=== PATIENT | male | born 1980 | race Caucasian/White ===

== ENCOUNTER → 2024-10-10 | Outpatient (CLI) | payer BC ==
--- NOTE | 2024-10-13 22:21 | PE ---
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 Images are reviewed on the computer in the coronal, axial, a nd sagittal planes. Reconstructed rotating images are created on independent workstation and reviewe d on the computer. A localization and attenuation correction CT is performed in conjunction with e PET scan. DLP: 5243.65 mGycm SCAN: Initial Blood glucose: 77 mg/dL Average Mediastinum SUV: 1.95 Average Liver SUV: 2.97 FINDINGS: NECK: There is marked abnormality through the right swelling of the neck with marked increased uptak e at 45.18 SUV. There are couple of additional smaller lymph nodes with elevated uptake in the right neck including the right jugulodigastric region with an SUV of 55 and a posterior triangle lymph node with SUV of 30.56, image 44. Couple of tiny areas of uptake are within the right tonsillar region, i mage 38, SUV 5.93 and in the parapharyngeal space, image 42, SUV 9.73. A peripheral density is just b elow the subcutaneous tissue image 40, SUV 4.49. Inferiorly a right supraclavicular lymph node may be present, image 69, SUV 61 more medial supraclavicular lymph node may be present image 74, SUV 34.46. THORAX: No abnormal uptake ABDOMEN: There is uptake in the region of the left adrenal gland with an SUV of 56.75. PELVIS: No abnormal uptake OSSEOUS STRUCTURES: No abnormal uptake LOCALIZATION CT: Soft tissue thickening is within the right neck on the localization CT COMPARISON: None IMPRESSION: 1. Marked uptake within the right neck with multiple punctate nearby focal areas of abnormal uptake. Findings could be compatible with patient's reported lymphoma. 2. Additional uptake noted in the left adrenal gland likely a metastatic lesion. [facility], , 10/13/2024 10:19 PM
== END | disposition home or self-care (01) ==
LOC: RADPETMAIN 06:32
PROVIDERS: ATTEND Internal Medicine Hematology & Oncology
DX: C85.11 Unspecified B-cell lymphoma, lymph nodes of head, face, and neck (principal); R93.7 Abnormal findings on diagnostic imaging of other parts of musculoskeletal system
CPT/HCPCS: 78815; A9552

== ENCOUNTER 2024-10-28 07:23 | Day surgery (SDC) | payer BC ==
[2024-10-24 09:32] VITALS: BMI 50.8
[~2024-10-28 07:23] MED LIST: Pre Op ABX Message 1 EACH MISC MISCELLANE ONE
[2024-10-28] MEDS ORDERED: MIDAZOLAM 2 MG/2 ML VIAL IV PRN (07:40)
[2024-10-28] MEDS ORDERED: LIDOCAINE 1% (10MG/ML) FOR IV START INTRADERMA PRN (07:40)
[2024-10-28] MEDS ORDERED: HYDROmorphone 0.5 MG/0.5 ML SYRINGE IVP PRN (07:40)
[2024-10-28] MEDS ORDERED: fentaNYL (PF) 50 MCG/ML 2 ML AMP IVP PRN (07:40)
[2024-10-28] MEDS: LACTATED RINGERS 1,000 ML IV SCH (08:10)
[2024-10-28] MEDS: IV FLUID CONTINUATION 1,000 ML IV ONE (08:10)
[2024-10-28] MEDS: DEXAMETHASONE SOD PHOSPHATE 4 MG/ML 1 ML VIAL IV ONE (08:25)
[2024-10-28] MEDS: ONDANSETRON 4 MG/2 ML VIAL IVP ONE (08:25)
[2024-10-28] MEDS: HEPARIN SODIUM,PORCINE 5,000 UNIT/ML 1 ML VIAL SQ PRN (08:25)
[2024-10-28] MEDS: ACETAMINOPHEN TAB 500 MG TAB PO PRN (08:25)
[2024-10-28 08:32] LABS: Glucose,Whole Blood 116 mg/dL (70-110)
--- NOTE | 2024-10-28 08:42 | P.GSHP ---
History of Present Illness H&P Date: 10/28/24 Chief Complaint: Lymphoma This a 44-year-old male recently diagnosed lymphoma. Patient is today for Port-A-Cath placement. Past Medical History Past Medical History: Pneumonia Additional Past Medical History / Comment(s): swelling and lump above rt collar bone-dx lymphoma-finishing tx 10-25-24 w/ dexamethasone-bx rt neck mass-needle bx, left kidney "lit up in pet scan",-following w/ Dr Bernal, hx bronchitis,pneumonia back in high school,kidney stones-passed on own 2023 History of Any Multi-Drug Resistant Organisms: None Reported Past Surgical History: No Surgical Hx Reported Past Anesthesia/Blood Transfusion Reactions: No Reported Reaction Additional Past Anesthesia/Blood Transfusion Reaction / Comment(s): no surgical hx Smoking Status: Former smoker - Past Family History Mother Family Medical History: Cancer Additional Family Medical History / Comment(s): lung CA. maternal uncle lung CA. maternal aunt breast CA. maternal grandfather leukemia Father Additional Family Medical History / Comment(s): paternal uncle pancreatic CA Medications and Allergies Home Medications Medication Instructions Recorded Confirmed Type Naproxen Sodium [Aleve] 220 - 440 mg PO BID PRN 10/24/24 10/24/24 History Allergies Allergy/AdvReac Type Severity Reaction Status Date / Time No Known Allergies Allergy Verified 10/28/24 07:50 Surgical - Exam Vital Signs Temp Pulse Resp BP Pulse Ox 97.8 F 73 16 158/67 96 10/28/24 08:10 10/28/24 08:10 10/28/24 08:10 10/28/24 08:10 10/28/24 08:10 - General well developed, well nourished, no distress - Eyes PERRL - ENT normal pinna - Neck Right cervical lymphadenopathy no masses - Respiratory normal expansion - Cardiovascular Rhythm: regular - Abdomen Abdomen: soft, non tender Results - Labs Abnormal Lab Results - Last 24 Hours (Table) 10/28/24 Range/Units 08:17 POC Glucose (mg/dL) 116 H (70-110) mg/dL Assessment and Plan Plan: Lymphoma. Will perform Port-A-Cath placement
[2024-10-28] MEDS ORDERED: MIDAZOLAM 2 MG/2 ML VIAL ONE (08:55)
[2024-10-28] MEDS ORDERED: fentaNYL (PF) 50 MCG/ML 2 ML AMP ONE (08:55)
[2024-10-28] MEDS ORDERED: LIDOCAINE 1% INJ 10MG/ML (20 ML MDV) ONE (08:55)
[2024-10-28] MEDS ORDERED: SUCCINYLCHOLINE CHLORIDE 200 MG/10 ML VIAL IV ONE (08:55)
[2024-10-28] MEDS ORDERED: PROPOFOL 10 MG/ML 20 ML VIAL IV ONE (08:55)
[2024-10-28] MEDS ORDERED: ceFAZolin 3 GM in SODIUM CHLORIDE 0.9% 100 ML IVPB ONE (09:00)
[2024-10-28] MEDS: LIDOCAINE 1%-EPI 1:100,000 20 ML VIAL SQ ONE (09:00)
[2024-10-28] MEDS: CEFAZOLIN IV ONE (09:00)
[2024-10-28] MEDS: HEPARIN SODIUM,PORCINE 100 UNIT/ML 5 ML VIAL IV ONE (09:00)
[2024-10-28] MEDS: SODIUM CHLORIDE 0.9% IV ONE (09:00)
[2024-10-28] MEDS: IOPAMIDOL-370 100ML BTL MISCELLANE ONE (09:40)
[2024-10-28 10:08] VITALS: TEMP 97
--- NOTE | 2024-10-28 10:17 | P.OP ---
Date of Procedure: 10/28/24 Preoperative Diagnosis: lymphoma Postoperative Diagnosis: Lymphoma Procedure(s) Performed: Insertion of right subclavian Port-A-Cath Anesthesia: CHARLY Surgeon: Ned Brantley Estimated Blood Loss (ml): 5 Pathology: none sent Condition: stable Disposition: PACU Description of Procedure: The patient was placed on the operating table in the supine position. The patient received IV sedation. The patient's chest was prepped and draped in the usual sterile fashion. A roll had been placed between the shoulder blades in a longitudinal fashion. After prepping and draping the skin was anesthetized 1% local Xylocaine. And then using the Seldinger technique the subclavian vein was cannulated. A wire was placed into the vein and fluoroscopy position the wire at the atrial caval junction. Next the dilator sheath was placed over top the wire and the wire was withdrawn. The catheter was positioned at the atriocaval position. The catheter was placed through the sheath after the dilator was withdrawn. The sheath was then withdrawn. Position of the catheter was confirmed with fluoroscopy. The Port-A-Cath was connected to the catheter. The Port-A-Cath was flushed with saline and then heparinized saline. The skin was closed interrupted 3-0 Monocryl suture. Dermabond was applied. Patient tolerated procedure well and was sent to recovery room stable condition.
--- NOTE | 2024-10-28 10:34 | XR ---
EXAMINATION TYPE: XR chest 1V DATE OF EXAM: 10/28/2024 CLINICAL INDICATION: Male, 44 years old with history of post line placement, TECHNIQUE: Single AP portable frontal upright view of the chest is obtained. COMPARISON: None FINDINGS: There is right subclavian central venous catheter terminating in SVC. Low lung volumes are present without pneumothorax. Left lung is clear. The cardiac silhouette size is upper limits of no rmal. The osseous structures are intact. IMPRESSION: As above. [facility], , 10/28/2024 10:32 AM
--- NOTE | 2024-10-28 10:36 | FL ---
EXAMINATION TYPE: FL guided central line placemt DATE OF EXAM: 10/28/2024 CLINICAL INDICATION: Male, 44 years old with history of INSERTION PORT A CATH, TECHNIQUE: Fluoroscopy. COMPARISON: None. FINDINGS: Fluoroscopic guidance was provided during Port-A-Cath insertion procedure performed by Dr. Brantley. A total of 44 seconds of fluoroscopic time was utilized during the procedure and 2 spot i mages was acquired. Images show right subclavian Mediport catheter. TOTAL DAP = 0.70041 mGy x m2. IMPRESSION: As Above. [facility], , 10/28/2024 10:33 AM
[2024-10-28 11:06] VITALS: PULSE 71
[2024-10-28 11:15] VITALS: BP 128/85; RESP 18
== END 2024-10-28 11:38 | disposition home or self-care (01) ==
LOC: OR 07:23
PROVIDERS: ATTEND Surgery
DX: R59.0 Localized enlarged lymph nodes (principal); C85.90 Non-Hodgkin lymphoma, unspecified, unspecified site; Z45.2 Encounter for adjustment and management of vascular access device; Z87.891 Personal history of nicotine dependence
CPT/HCPCS: 77001; 71045; 36561; C1788; J2250; J0330; J1644; J1642; J1100; J0690; J2405; J2003; J3010; J2704; Q9967

== ENCOUNTER 2024-11-09 08:28 | Inpatient (IN) | payer BC ==
[2024-11-09] MEDS ORDERED: RX INFO: IV CONTRAST WAS GIVEN 1 EACH MISC MISCELLANE PRN (09:00)
--- NOTE | 2024-11-09 09:05 | ED ---
General Adult HPI - General Chief complaint: Recheck/Abnormal Lab/Rx Stated complaint: Right shoulder pain, port complications Time Seen by Provider: 11/09/24 08:43 Source: patient, RN notes reviewed Mode of arrival: ambulatory Limitations: no limitations - History of Present Illness Initial comments: Patient is a 44-year-old male present to the emergency department with concerns for swelling and discomfort right upper chest and shoulder region. Onset of symptoms was yesterday, much worse today. Shoulder discomfort and is somewhat severe with movement. Mild to moderate at rest. Patient has noticed some swelling near the area of his port as well as the right upper shoulder. Patient did have a new port placed 2 weeks ago. Patient has used it and is on chemotherapy. No fever. No new trauma. Patient has underlying history of B- cell lymphoma. - Related Data Home Medications Medication Instructions Recorded Confirmed Aprepitant [Emend] 80 mg PO DIRECTED 11/09/24 11/09/24 Empagliflozin [Jardiance] 10 mg PO DIRECTED 11/09/24 11/09/24 Loperamide HCl [Imodium A-D] 4 mg PO QID PRN 11/09/24 11/09/24 Loratadine [Claritin] 10 mg PO DAILY 11/09/24 11/09/24 OLANZapine [ZyPREXA] 2.5 mg PO DIRECTED 11/09/24 11/09/24 Omeprazole [PriLOSEC] 20 mg PO DAILY 11/09/24 11/09/24 Ondansetron [Zofran] 4 mg PO Q4H PRN 11/09/24 11/09/24 predniSONE [Deltasone] 100 mg PO DIRECTED 11/09/24 11/09/24 Allergies Allergy/AdvReac Type Severity Reaction Status Date / Time No Known Allergies Allergy Verified 11/09/24 09:57 Review of Systems ROS Statement: Those systems with pertinent positive or pertinent negative responses have been documented in the HPI. ROS Other: All systems not noted in ROS Statement are negative. Constitutional: Denies: fever Eyes: Denies: eye pain ENT: Denies: ear pain Respiratory: Denies: cough Cardiovascular: Denies: chest pain Endocrine: Denies: fatigue Gastrointestinal: Denies: abdominal pain Musculoskeletal: Reports: as per HPI Past Medical History Past Medical History: Pneumonia Additional Past Medical History / Comment(s): swelling and lump above rt collar bone-dx lymphoma-finishing tx 10-25-24 w/ dexamethasone-bx rt neck mass-needle bx, left kidney "lit up in pet scan",-following w/ Dr Bernal, hx bronchitis,pneumonia back in high school,kidney stones-passed on own 2023 History of Any Multi-Drug Resistant Organisms: None Reported Past Surgical History: No Surgical Hx Reported Past Anesthesia/Blood Transfusion Reactions: No Reported Reaction Additional Past Anesthesia/Blood Transfusion Reaction / Comment(s): no surgical hx Past Psychological History: No Psychological Hx Reported Smoking Status: Former smoker Past Alcohol Use History: None Reported Past Drug Use History: None Reported - Past Family History Mother Family Medical History: Cancer Additional Family Medical History / Comment(s): lung CA. maternal uncle lung CA. maternal aunt breast CA. maternal grandfather leukemia Father Additional Family Medical History / Comment(s): paternal uncle pancreatic CA General Exam Limitations: no limitations General appearance: alert, in no apparent distress, other (Patient does have some mild to moderate swelling and mild tenderness over the area/region of the port approximately 6 x 6 cm. There is also some mild swelling and tenderness right upper lateral trapezius region. Also mild swelling more medially also posterior.) Head exam: Present: normocephalic Eye exam: Present: normal appearance Neck exam: Present: other (Mild swelling posterior inferior neck region without tenderness) Respiratory exam: Present: normal lung sounds bilaterally Cardiovascular Exam: Present: regular rate, normal rhythm Expanded Peripheral pulses: 2+: Radial (R) GI/Abdominal exam: Present: soft. Absent: tenderness Extremities exam: Present: normal inspection, full ROM, other (Right arm without tenderness or swelling. Distally the extremity is neurovascular intact.). Absent: tenderness Neurological exam: Present: alert. Absent: motor sensory deficit Psychiatric exam: Present: normal affect, normal mood Skin exam: Present: normal color Course Vital Signs 11/09/24 11/09/24 08:33 10:47 Temperature 97.9 F Pulse Rate 94 98 Respiratory 18 18 Rate Blood Pressure 154/89 135/67 O2 Sat by Pulse 96 95 Oximetry Medical Decision Making - Medical Decision Making Was pt. sent in by a medical professional or institution (, PA, CLOTH WASHER, urgent care, hospital, or retirement...) When possible be specific @ -No Did you speak to anyone other than the patient for history (EMS, parent, family, police, friend...)? What history was obtained from this source @ -Family is present and helps provide history including when port was placed Did you review nursing and triage notes (agree or disagree)? Why? @ -I reviewed and agree with nursing and triage notes Were old charts reviewed (outside hosp., previous admission, EMS record, old EKG, old radiological studies, urgent care reports/EKG's, retirement records)? Report findings @ -No old charts were reviewed Differential Diagnosis (chest pain, altered mental status, abdominal pain women, abdominal pain men, vaginal bleeding, weakness, fever, dyspnea, syncope, headache, dizziness, GI bleed, back pain, seizure, CVA, palpatations, mental health, musculoskeletal)? @ -Differential Chest Pain: Stable Angina, Unstable Angina, STEMI, NSTEMI Aortic Dissection, Pneumothorax, Musculoskeletal, Esophageal Spasm GERD, Cholecystitis, Pancreatitis, Zoster, this is not meant to be an all-inclusive list. EKG interpreted by me (3pts min.). @ -As above X-rays interpreted by me (1pt min.). @ -None done CT interpreted by me (1pt min.). @ -CT scan does show some fat stranding and edema near the port and shoulder with some edema U/S interpreted by me (1pt. min.). @ -Ultrasound right upper extremity without evidence of DVT What testing was considered but not performed or refused? (CT, X-rays, U/S, labs)? Why? @ -None What meds were considered but not given or refused? Why? @ -None Did you discuss the management of the patient with other professionals (professionals i.e. , PA, CLOTH WASHER, lab, RT, psych nurse, social media sr strategy manager, plumbing and heating contractor, teacher, airport operations officer, behavioral health case manager)? Give summary @ -Case was discussed with Dr. Delacruz who will admit covering hospital call and request cefazolin Was smoking cessation discussed for >3mins.? @ -No Was critical care preformed (if so, how long)? @ -No Were there social determinants of health that impacted care today? How? (Homelessness, low income, unemployed, alcoholism, drug addiction, transportation, low edu. Level, literacy, decrease access to med. care, senior living, rehab)? @ -No Was there de-escalation of care discussed even if they declined (Discuss DNR or withdrawal of care, Hospice)? DNR status @ -No What co-morbidities impacted this encounter? (DM, HTN, Smoking, COPD, CAD, Cancer, CVA, ARF, Chemo, Hep., AIDS, mental health diagnosis, sleep apnea, morbid obesity)? @ -B-cell lymphoma, recently started therapy Was patient admitted / discharged? Hospital course, mention meds given and route, prescriptions, significant lab abnormalities, going to OR and other pertinent info. @ -Patient presents with discomfort and swelling near the port. CT scan shows fat stranding and edema, possible infection. Patient will be admitted for treatment and further evaluation. Patient reevaluated and updated. Admission orders written. Undiagnosed new problem with uncertain prognosis? @ -No Drug Therapy requiring intensive monitoring for toxicity (Heparin, Nitro, Insulin, Cardizem)? @ -No Were any procedures done? @ -No Diagnosis/symptom? @ -Port infection Acute, or Chronic, or Acute on Chronic? @ -Acute Uncomplicated (without systemic symptoms) or Complicated (systemic symptoms)? @ -Default Side effects of treatment? @ -No Exacerbation, Progression, or Severe Exacerbation? @ -No Poses a threat to life or bodily function? How? (Chest pain, [place], [place], pneumonia, PE, COPD, DKA, ARF, appy, cholecystitis, CVA, Diverticulitis, Homicidal, Suicidal, threat to staff... and all critical care pts) @ -No - Lab Data Result diagrams: 11/09/24 09:30 11/09/24 09:30 Lab Results 11/09/24 11/09/24 11/09/24 Range/Units 09:30 09:30 09:30 WBC 8.1 (3.8-10.6) k/uL RBC 4.48 (4.30-5.90) m/uL Hgb 13.0 (13.0-17.5) gm/dL Hct 39.1 (39.0-53.0) % MCV 87.5 (80.0-100.0) fL MCH 28.9 (25.0-35.0) pg MCHC 33.1 (31.0-37.0) g/dL RDW 13.0 (11.5-15.5) % Plt Count 155 (150-450) k/uL MPV 7.8 Neutrophils % 82 % Lymphocytes % 11 % Monocytes % 4 % Eosinophils % 2 % Basophils % 0 % Neutrophils # 6.7 (1.3-7.7) k/uL Lymphocytes # 0.9 L (1.0-4.8) k/uL Monocytes # 0.3 (0-1.0) k/uL Eosinophils # 0.2 (0-0.7) k/uL Basophils # 0.0 (0-0.2) k/uL PT 10.6 (10.0-12.5) sec INR 0.9 (<1.2) APTT 20.8 L (22.0-30.0) sec Sodium 137 (137-145) mmol/L Potassium 4.0 (3.5-5.1) mmol/L Chloride 98 (98-107) mmol/L Carbon Dioxide 30 (22-30) mmol/L Anion Gap 9 mmol/L BUN 32 H (9-20) mg/dL Creatinine 0.68 (0.66-1.25) mg/dL Est GFR (CKD-EPI)AfAm >90 (>60 ml/min/1.73 sqM) Est GFR (CKD-EPI)NonAf >90 (>60 ml/min/1.73 sqM) Glucose 236 H (74-99) mg/dL Calcium 8.6 (8.4-10.2) mg/dL Total Bilirubin 1.0 (0.2-1.3) mg/dL AST 23 (17-59) U/L ALT 47 (4-49) U/L Alkaline Phosphatase 120 (38-126) U/L Total Protein 6.3 (6.3-8.2) g/dL Albumin 3.8 (3.5-5.0) g/dL Disposition Clinical Impression: Infected venous access port Disposition: ADMITTED IP TO THIS HOSP Is patient prescribed a controlled substance at d/c from ED?: No Referrals: Racheal King DO [Primary Care Provider] - 1-2 days Time of Disposition: 11:30
[2024-11-09] MEDS: HYDROmorphone 1 MG/ML 1 ML SYRINGE IVP STA (09:31)
[2024-11-09 09:52] LABS: ALT 47 U/L (4-49); African American GFR (CKD) >90 (>60 ml/min/1.73 sqM); Albumin 3.8 g/dL (3.5-5.0); Anion Gap 9 mmol/L; Blood Urea Nitrogen 32 mg/dL (9-20); Calcium 8.6 mg/dL (8.4-10.2); Carbon Dioxide 30 mmol/L (22-30); Chloride 98 mmol/L (98-107); Glucose 236 mg/dL (74-99); Non-African American GFR(CKD) >90 (>60 ml/min/1.73 sqM); Sodium 137 mmol/L (137-145); Total Protein 6.3 g/dL (6.3-8.2)
[2024-11-09 09:54] LABS: AST 23 U/L (17-59); Alkaline Phosphatase 120 U/L (38-126)
[2024-11-09 10:02] LABS: INR 0.9 (<1.2); Prothrombin Time 10.6 sec (10.0-12.5)
[2024-11-09 10:07] LABS: Partial Thromboplastin Time 20.8 sec (22.0-30.0)
[2024-11-09 10:10] LABS: Basophils % (A) 0 %; Eosinophils # (A) 0.2 k/uL (0-0.7); Eosinophils % (A) 2 %; HCT 39.1 % (39.0-53.0); Lymphocytes # (A) 0.9 k/uL (1.0-4.8); Lymphocytes % (A) 11 %; MCH 28.9 pg (25.0-35.0); MCHC 33.1 g/dL (31.0-37.0); MCV 87.5 fL (80.0-100.0); Mean Platelet Volume 7.8; Monocytes # (A) 0.3 k/uL (0-1.0); Monocytes % (A) 4 %; Neutrophils # (A) 6.7 k/uL (1.3-7.7); Neutrophils % (A) 82 %; Platelet Count 155 k/uL (150-450); RBC 4.48 m/uL (4.30-5.90); WBC 8.1 k/uL (3.8-10.6)
--- NOTE | 2024-11-09 10:12 | CT ---
EXAMINATION TYPE: CT chest w con DATE OF EXAM: 11/09/2024 COMPARISON: PET CT October 10, 2024 CLINICAL INDICATION: Male, 44 years old with history of R upper chest and shoulder swelling. new por t, RT CHEST SWELLING AROUND PORT AREA, RECENTLY PLACED, RECENT DX LYMPHOMA. TECHNIQUE: CT scan of the thorax is performed following with IV Contrast, patient injected with 100 mL of Isovue 300. CT DLP: 1424 mGycm. Automated Exposure Control for Dose Reduction was Utilized. FINDINGS: LUNGS: A few scattered tiny bilateral nodules are redemonstrated measuring up to 4 mm axial image 29 right upper lung. No focal consolidation. No pleural effusion or pneumothorax is seen HEART: Size within normal limits. No significant coronary artery calcifications. MEDIASTINUM: There are no greater than 1 cm hilar or mediastinal lymph nodes. No pericardial effusi on is seen. OTHER: There is right internal jugular Mediport catheter terminating in SVC. There is nonspecific ill -defined fluid surrounding Mediport hub with mild to moderate more peripheral adjacent fat stranding. Edema extends to the superior aspect of the upper thoracic right-sided anterior muscles. Prior visua lized right-sided hypermetabolic mass is minimally imaged on the most superior axial images. IMPRESSION: Nonspecific ill-defined fluid and fat stranding surrounding the right Mediport hub. Infec tious process cannot be excluded in appropriate clinical setting. No focal fluid collection or absces s identified [facility], , 11/09/2024 10:10 AM
--- NOTE | 2024-11-09 10:35 | US ---
EXAMINATION TYPE: US venous doppler duplex UE RT DATE OF EXAM: 11/09/2024 COMPARISON: NONE CLINICAL INDICATION: Male, 44 years old with history of swelling; swelling to neck and shoulder, also around chemo port that was placed 3 weeks ago, no h/o dvt, skin is very warn to the touch, 360lb pat ient TECHNIQUE: Grayscale, color Doppler and spectral Doppler imaging of the upper extremity. SIDE PERFORMED: Right VESSELS IMAGED: IJV Subclavian Vein Axilla Vein Brachial Vein(s) Radial Paired Veins Ulnar Paired Veins Cephalic Vein* Basilic Vein* (*superficial vessels) FINDINGS: Right Arm: Negative for DVT Grayscale, color doppler, spectral doppler imaging performed of the deep veins of the upper extremiti es. IMPRESSION: No ultrasound evidence for acute deep or superficial venous thrombosis in the right upper extremity [facility], , 11/09/2024 10:33 AM
[2024-11-09] MEDS ORDERED: NALOXONE 0.4 MG/ML 1 ML VIAL IV PRN (11:32)
[2024-11-09] MEDS ORDERED: LOPERAMIDE 2 MG CAP PO PRN (11:33)
[2024-11-09] MEDS ORDERED: predniSONE 20 MG TAB PO SCH (11:45)
--- NOTE | 2024-11-09 12:05 | P.HPIM ---
History of Present Illness H&P Date: 11/09/24 History of Presenting Illness: Patient is a very pleasant 44-year-old male recently diagnosed with B-cell lymphoma and type 2 diabetes mellitus. Patient underwent Chemo-Port placement on 10/28/[address] Brantley and started on chemotherapy by oncologist, Dr. Bernal. He presented to the emergency department today secondary to concerns of redness, swelling, and pain to right anterior chest radiating into right shoulder region. Patient reports he first noticed the symptoms yesterday but were mild and states significantly worsened overnight. He denies having any fevers, chills, diaphoresis, dizziness, lightheadedness, shortness of breath, or experiencing any numbness/tingling/weakness in his right arm. Patient reports pain directly at site of Chemo-Port radiating across to his right anterior chest and into his right shoulder. He denies having any drainage from site. Upon arrival to our facility, patient underwent evaluation in the emergency department. Vital signs upon arrival show blood pressure 154/89, heart rate 94, respiratory rate 18, temp 97.9 F, and SpO2 of 96% on room air. Labs completed and reviewed. CBC unremarkable. Coagulation profile showing a low PTT of 20.8 otherwise normal findings. BMP showing mild prerenal azotemia with BUN of 32 otherwise normal findings. Blood glucose was elevated at 236. Lactic acid was 1.6. Liver profile unremarkable. Venous Doppler right upper extremity negative for DVT. CT chest showing nonspecific ill-defined fluid and fat stranding surrounding the right Mediport hub concerning for infectious process with no focal fluid collection or abscess identified. Patient admitted to observation unit under our services with consultation to infectious disease and general surgery. Review of systems: Pertinent positives and negatives as discussed in HPI, a complete review of systems was performed and all other systems are negative. Physical exam: Vital signs reviewed and stable. General: Nontoxic, no distress and appears stated age. Derm: Skin warm and dry, normal coloration for ethnicity. Patient with increased warmth, mild swelling and erythema over Chemo-Port to right anterior chest extending into right clavicular region. No drainage noted. Head: Atraumatic, normocephalic and symmetric. Eyes: EOM's intact, no lid lag, and anicteric sclera Mouth: no lip lesions, mucus membranes moist Cardiovascular: regular rate and rhythm with normal S1S2, no murmur, positive posterior tibial pulses bilaterally, and cap refill < 2 seconds. Lungs: Respirations even, regular, and unlabored on room air. Lungs CTA bilaterally, no rhonchi, no rales, no wheezing, and no accessory muscle usage. Abdominal: soft, nontender to palpation, no guarding, no appreciable organomegaly Ext: ROM intact. No gross muscle atrophy, no edema, no contractures Neuro: Speech clear, face symmetrical and CN II-XII grossly intact with no noted focal neuro deficits Psych: Alert and oriented to person, place, time, and situation. Appropriate and pleasant affect. Assessment and Plan of Care: Concerns for infected Mediport with surrounding cellulitis -CT chest showing nonspecific ill-defined fluid and fat stranding surrounding the right Mediport hub concerning for infectious process with no focal fluid collection or abscess identified. -Infectious disease consulted, discussed with Dr. Schrader. -General Surgery consulted -Follow-up on blood culture, order placed for catheter tip culture if the decision is made by general surgery to remove port -Patient started on broad-spectrum antibiotics with vancomycin 2250 mg every 8 hours and cefepime 2 g every 8 hours. Monitor renal function and vancomycin trough closely for any signs/symptoms of vancomycin associated renal toxicity -Symptomatic care and pain management with Tylenol 650 mg every 6 hours as needed for mild pain, Bagley 5/325 mg tablets as needed for moderate pain, and Dilaudid 1 mg every 3 hours as needed for severe pain. Type II [id number] diabetes mellitus with hyperglycemia -Continue Farxiga 5 mg daily and patient placed on glycemic protocol with Humalog sliding scale. B-cell lymphoma -Continue to follow-up outpatient with oncology for continued treatment upon discharge. Data and imaging reviewed: As stated above in HPI CODE STATUS: Full code DVT prophylaxis: Lovenox Discussed with:ED physician, Patient, RN, and infectious disease physician Anticipated discharge date: Pending clinical course Anticipated discharge place: Home Patient was seen independently by Nurse Practitioner. This document was prepared using [employer] dictation software. Please allow for errors in aircraft structure mechanic while rare they do occur. Boris Wong NP rendered care for this patient independently, reviewed the findings and plan as documented in the note above and agree with plan. I did not physically speak with or examine the patient on this date. Past Medical History Past Medical History: Pneumonia Additional Past Medical History / Comment(s): swelling and lump above rt collar bone-dx lymphoma-finishing tx 10-25-24 w/ dexamethasone-bx rt neck mass-needle bx, left kidney "lit up in pet scan",-following w/ Dr Bernal, hx bronchitis,pneumonia back in high school,kidney stones-passed on own 2023 History of Any Multi-Drug Resistant Organisms: None Reported Past Surgical History: No Surgical Hx Reported Past Anesthesia/Blood Transfusion Reactions: No Reported Reaction Additional Past Anesthesia/Blood Transfusion Reaction / Comment(s): no surgical hx Past Psychological History: No Psychological Hx Reported Smoking Status: Former smoker Past Alcohol Use History: None Reported Past Drug Use History: None Reported - Past Family History Mother Family Medical History: Cancer Additional Family Medical History / Comment(s): lung CA. maternal uncle lung CA. maternal aunt breast CA. maternal grandfather leukemia Father Additional Family Medical History / Comment(s): paternal uncle pancreatic CA Medications and Allergies Home Medications Medication Instructions Recorded Confirmed Type Aprepitant [Emend] 80 mg PO DIRECTED 11/09/24 11/09/24 History Empagliflozin [Jardiance] 10 mg PO DIRECTED 11/09/24 11/09/24 History Loperamide HCl [Imodium A-D] 4 mg PO QID PRN 11/09/24 11/09/24 History Loratadine [Claritin] 10 mg PO DAILY 11/09/24 11/09/24 History OLANZapine [ZyPREXA] 2.5 mg PO DIRECTED 11/09/24 11/09/24 History Omeprazole [PriLOSEC] 20 mg PO DAILY 11/09/24 11/09/24 History Ondansetron [Zofran] 4 mg PO Q4H PRN 11/09/24 11/09/24 History predniSONE [Deltasone] 100 mg PO DIRECTED 11/09/24 11/09/24 History Allergies Allergy/AdvReac Type Severity Reaction Status Date / Time No Known Allergies Allergy Verified 11/09/24 09:57 Physical Exam Vitals: Vital Signs Temp Pulse Resp BP Pulse Ox 11/09/24 10:47 98 18 135/67 95 11/09/24 08:33 97.9 F 94 18 154/89 96 Intake and Output 11/08/24 11/09/24 11/09/24 22:59 06:59 14:59 Other: Weight 163.293 kg Results CBC & Chem 7: 11/09/24 09:30 11/09/24 09:30 Labs: Abnormal Lab Results - Last 24 Hours (Table) 11/09/24 11/09/24 11/09/24 Range/Units 09:30 09:30 09:30 Lymphocytes # 0.9 L (1.0-4.8) k/uL APTT 20.8 L (22.0-30.0) sec BUN 32 H (9-20) mg/dL Glucose 236 H (74-99) mg/dL
[2024-11-09] MEDS: DAPAGLIFLOZIN PROPANEDIOL 5 MG TABLET PO SCH (13:27)
[2024-11-09] MEDS: HYDROmorphone 1 MG/ML 1 ML SYRINGE IVP PRN (13:32)
[2024-11-09] MEDS ORDERED: VANCOMYCIN IV PER PHARMACY 1 EACH MISC MISCELLANE PRN (13:34)
[2024-11-09] MEDS ORDERED: DEXTROSE 50% SYRINGE 50 ML IVP PRN ×2 (13:43)
[2024-11-09] MEDS: VANCOMYCIN 2,250 MG in SODIUM CHLORIDE 0.9% 500 ML 500 ML IVPB ONE (14:22)
[2024-11-09] MEDS: CEFEPIME 2 GM in SODIUM CHLORIDE 0.9% 100 ML IVPB SCH (14:22)
--- NOTE | 2024-11-09 17:34 | P.CONS ---
History of Present Illness - Reason for Consult Consult date: 11/09/24 NHL Requesting physician: Fatmata Cline - Chief Complaint Shoulder and port pain - History of Present Illness Mr. Broussard is a very pleasant 44 yo male with recently found DLBLC, here for shoulder and port pain since last night. he had port placement 2 weeks ago and subsequently started chemo with RCHOP 1 week ago. received neulasta. Was doing well however last night began having increasing redness and pain of his port region in right upper chest wall which he thought was MSK pain. went to sleep however when he woke up this am he had severe pain in his right shoulder region, especially with any mvoement of his right shoulder, and increased port site pain. came to ER where he had peripheral blood cultures drawn x2, and was started on antibitoics. CBC normal, WBC 4.2. oncologic history: Follows with Dr. Bernal Mr Broussard is a pleasant white male, with no major medical problems at baseline. In fact the patient had not had any regular medical care for several years, when he presented to his local emergency room at [facility], on 09/19/24. He developed a swelling on the right side of the neck, about 2-3 months ago, that had progressively increased in size and is causing some discomfort radiating into the right shoulder. Patient did not have any other associated symptoms in terms of swallowing, change in voice, swelling of the arm, or other lymph node enlargement. He does have some dental caries, but had not noted any change in symptoms The patient's CBC and CMP were essentially unremarkable. CT scan of the neck with contrast showed heterogenous right posterolateral neck mass measuring 5.9 x 6.3 x 7.3 cm with surrounding fat stranding. There were additional multiple lymph nodes including level 2A/2B/junctional and level 4/5 B nodes in the 2-3 cm range. The dominant node was centrally necrotic. The patient was therefore recommended oncology follow-up and referred here. he denied prior history of blood related problems or cancers. no history of any B symptoms. he smoked for less than 2 years in high school. No history of any chewing tobacco, or heavy alcohol use. He denied any change in his voice, respiratory status or swallowing. The patient was referred for a CT-guided biopsy of the neck mass, that was drawn on 09/26/24, revealing high-grade large B-cell lymphoma. The tumor had BCL 6 and management, but was negative for BCL-2/MyC, ruling out double/triple hit pathology as well as Burkitt's. PET scan revealed uptake in conglomerate lymph nodes in the right neck/supraclavicular area, as well as in the left adrenal. The patient therefore appeared to have stage III disease. He denied any fevers/chills/nausea/vomiting. He has been having increasing pressure sensation with intermittent difficulty in swallowing and difficulty sleeping related to the mass, which has been increasing in size. Pain control was initially reasonable with Tylenol/ibuprofen, but has been getting less optimal. He denied any difficulty breathing. Appetite and energy level are fairly well maintained. Review of systems otherwise as per HPI and negative for 10. last seen on 10/14/24: The pathology, PET scan results, and implications were discussed in detail with the patient and his . They were advised that this is an aggressive process, that would typically fatal without treatment. However it would be expected to be highly responsive to combination chemotherapy/immunotherapy, with a substantial cure rate with this treatment alone in the first line. The patient does appear to have stage III disease, with however limited involvement above and below the diaphragm. - I therefore discussed the standard R CHOP Regimen. The patient will have labs for HIV and viral hepatitis prior to the same. He'll be set up for echocardiogram and port placement as well as chemotherapy teaching. He is willing to proceed. He has been having progressive symptoms related to the right neck mass as described. He'll therefore be given high-dose Decadron 4 days on and 4 days off for 2 courses, by which time he would hopefully be ready to start his definitive chemoimmunotherapy regimen. - I also discussed the importance of maintaining adequate contraception while on treatment, as well as as for 6-12 months after, given the possibility of chemotherapy affecting sperm quality and quantity. We also discussed the possibility of erectile dysfunction while on treatment, as well as diminished fertility, which can sometimes persist on a permanent basis. They expressed understanding of the same. Patient confirmed that he is not interested in having any more children. Past Medical History Past Medical History: Pneumonia Additional Past Medical History / Comment(s): swelling and lump above rt collar bone-dx lymphoma-finishing tx 3 w/ dexamethasone-bx rt neck mass-needle bx, left kidney "lit up in pet scan",-following w/ Dr Bernal, hx bronchitis,pneumonia back in high school,kidney stones-passed on own 2023 History of Any Multi-Drug Resistant Organisms: None Reported Past Surgical History: No Surgical Hx Reported Additional Past Surgical History / Comment(s): Right port placement Past Anesthesia/Blood Transfusion Reactions: No Reported Reaction Additional Past Anesthesia/Blood Transfusion Reaction / Comm: no surgical hx Past Psychological History: No Psychological Hx Reported Smoking Status: Former smoker Past Alcohol Use History: None Reported Past Drug Use History: None Reported - Past Family History Mother Family Medical History: Cancer Additional Family Medical History / Comment(s): lung CA. maternal uncle lung CA. maternal aunt breast CA. maternal grandfather leukemia Father Additional Family Medical History / Comment(s): paternal uncle pancreatic CA Medications and Allergies Home Medications Medication Instructions Recorded Confirmed Type Aprepitant [Emend] 80 mg PO DIRECTED 11/09/24 11/09/24 History Empagliflozin [Jardiance] 10 mg PO DIRECTED 11/09/24 11/09/24 History Loperamide HCl [Imodium A-D] 4 mg PO QID PRN 11/09/24 11/09/24 History Loratadine [Claritin] 10 mg PO DAILY 11/09/24 11/09/24 History OLANZapine [ZyPREXA] 2.5 mg PO DIRECTED 11/09/24 11/09/24 History Omeprazole [PriLOSEC] 20 mg PO DAILY 11/09/24 11/09/24 History Ondansetron [Zofran] 4 mg PO Q4H PRN 11/09/24 11/09/24 History predniSONE [Deltasone] 100 mg PO DIRECTED 11/09/24 11/09/24 History Allergies Allergy/AdvReac Type Severity Reaction Status Date / Time No Known Allergies Allergy Verified 11/09/24 09:57 Physical Exam Vitals: Vital Signs Temp Pulse Pulse Resp BP BP Pulse Ox 11/09/24 12:54 98.0 F 91 20 165/97 99 11/09/24 12:24 98.4 F 99 18 155/93 97 11/09/24 10:47 98 18 135/67 95 11/09/24 08:33 97.9 F 94 18 154/89 96 Intake and Output 11/09/24 11/09/2425 06:59 14:59 22:59 Other: Weight 163.293 kg Erythema and edema with tenderness of right upper chest wall mediport region. right neck LAD, pt states improved since his chemo a week ago. otherwise in no acute distress and no alert and oriented x 3. Results CBC & Chem 7: 11/09/24 09:30 11/09/24 09:30 Labs: Abnormal Lab Results - Last 24 Hours (Table) 11/09/24 11/09/24 11/09/24 Range/Units 09:30 09:30 09:30 Lymphocytes # 0.9 L (1.0-4.8) k/uL APTT 20.8 L (22.0-30.0) sec BUN 32 H (9-20) mg/dL Glucose 236 H (74-99) mg/dL CT scan - chest: report reviewed Assessment and Plan Assessment: 1. DLBCL 2. Mediport infection Plan: Mr. Broussard is a very pleasant 44 yo male with recently diagnosed DLBCL, here for concerns of port infection 1 week after C1 of R-CHOP. CT chest reviewed, fat stranding around port site, and clinically has cellulititis overlying port site. - Monitor cultures - Antibiotics - ID consult - Likely will need port removal -pain control -monitor CBC, he is 1 week out form [facility] and may begin to have downtrending WBC however received G-CSF already Discussed with pt and he was agreeable. all questions answered.
[2024-11-09 17:47] LABS: Glucose,Whole Blood 176 mg/dL (70-110)
[2024-11-09] MEDS: INSULIN LISPRO (HumaLOG) 100 UNIT/ML 10 mL VL SQ SCH (18:43)
[2024-11-09 19:59] LABS: Glucose,Whole Blood 164 mg/dL (70-110)
[2024-11-09] MEDS: ENOXAPARIN 40 MG/0.4 ML SYRINGE SQ SCH (20:20)
[2024-11-09] MEDS: OLANZapine 2.5 MG TAB PO SCH (20:31)
[2024-11-09] MEDS: VANCOMYCIN 2,250 MG in SODIUM CHLORIDE 0.9% 500 ML 500 ML IVPB SCH (21:45)
[2024-11-09] MEDS: ACETAMINOPHEN TAB 325 MG TAB PO PRN (21:47)
[2024-11-09] MEDS: SODIUM CHLORIDE 0.9% 1,000 ML IV SCH (23:30)
[2024-11-09] MEDS: ACETAMINOPHEN TAB 325 MG TAB PO STA (23:30)
--- NOTE | 2024-11-09 23:32 | P.CONS ---
History of Present Illness - Reason for Consult Consult date: 11/09/24 Port infection Requesting physician: Enrico Hardy - Chief Complaint Right-sided chest and right shoulder pain x 1 day - History of Present Illness Patient is a 44-year-old male with a past medical history significant for pneumonia, diabetes mellitus and recently diagnosed with B cell lymphoma for which the patient did have right chest wall Mediport placement on 10/28/2024 patient mention the port was last assessed on Monday that is about 5 days before presentation to the hospital for a blood draw and did have follow-up with the surgeon on Monday and there was no evidence of any infection to the Mediport site patient now came to the ER concerning for redness swelling and pain to the right chest wall in the shoulder region that apparently started the day before presentation to the hospital patient been complaining of pain to the chest wall and the shoulder area to be sharp moderate intensity without any radiation patient denies having any drainage from the Mediport site and denies any high- grade fever did have some chills patient on presentation to the hospital was afebrile no fever have been called subsequently patient was nontachycardic hypotensive or hypoxic no need for supplemental oxygen patient did have a white count of 8.1 creatinine 0.68 electrolyte has been normal liver enzymes are normal blood culture has been obtained which are currently pending patient did have a CT of the chest nonspecific ill-defined fluid and fat stranding surr ounding the right Mediport hub infectious process cannot be excluded in the appropriate clinical setting no focal fluid collection or abscess identified patient also have a venous Doppler study but no evidence of any DVT to the right upper extremity patient has been admitted to hospital he was initially started on cefazolin that has been switched over to cefepime and vancomycin after discussion with [facility] for admitting team infectious he was consulted for further management of antibiotic therapy Review of Systems Positive point and negatives has been mentioned in the HPI, complete review of systems was performed and all other systems are negative Past Medical History Past Medical History: Pneumonia Additional Past Medical History / Comment(s): swelling and lump above rt collar bone-dx lymphoma-finishing tx 10-25-24 w/ dexamethasone-bx rt neck mass-needle bx, left kidney "lit up in pet scan",-following w/ Dr Bernal, hx bronchitis,pneumonia back in high school,kidney stones-passed on own 2023 History of Any Multi-Drug Resistant Organisms: None Reported Past Surgical History: No Surgical Hx Reported Past Anesthesia/Blood Transfusion Reactions: No Reported Reaction Additional Past Anesthesia/Blood Transfusion Reaction / Comm: no surgical hx Past Psychological History: No Psychological Hx Reported Smoking Status: Former smoker Past Alcohol Use History: None Reported Past Drug Use History: None Reported - Past Family History Mother Family Medical History: Cancer Additional Family Medical History / Comment(s): lung CA. maternal uncle lung CA. maternal aunt breast CA. maternal grandfather leukemia Father Additional Family Medical History / Comment(s): paternal uncle pancreatic CA Medications and Allergies Home Medications Medication Instructions Recorded Confirmed Type Aprepitant [Emend] 80 mg PO DIRECTED 11/09/24 11/09/24 History Empagliflozin [Jardiance] 10 mg PO DIRECTED 11/09/24 11/09/24 History Loperamide HCl [Imodium A-D] 4 mg PO QID PRN 11/09/24 11/09/24 History Loratadine [Claritin] 10 mg PO DAILY 11/09/24 11/09/24 History OLANZapine [ZyPREXA] 2.5 mg PO DIRECTED 11/09/24 11/09/24 History Omeprazole [PriLOSEC] 20 mg PO DAILY 11/09/24 11/09/24 History Ondansetron [Zofran] 4 mg PO Q4H PRN 11/09/24 11/09/24 History predniSONE [Deltasone] 100 mg PO DIRECTED 11/09/24 11/09/24 History Allergies Allergy/AdvReac Type Severity Reaction Status Date / Time No Known Allergies Allergy Verified 11/09/24 09:57 Physical Exam Vitals: Vital Signs Temp Pulse Resp BP Pulse Ox 11/09/24 12:24 98.4 F 99 18 155/93 97 11/09/24 10:47 98 18 135/67 95 11/09/24 08:33 97.9 F 94 18 154/89 96 Intake and Output 11/08/24 11/09/24 11/09/24 22:59 06:59 14:59 Other: Weight 163.293 kg GENERAL DESCRIPTION: Middle aged male lying in bed, no distress. No tachypnea or accessory muscle of respiration use. HEENT: Shows Pallor , no scleral icterus. Oral mucous membrane is dry. NECK: Trachea central, no thyromegaly. LUNGS: Unlabored breathing. Clear to auscultation anteriorly. No wheeze or crackle. HEART: S1, S2, regular rate and rhythm. ABDOMEN: Soft, no tenderness , guarding or rigidity, no organomegaly EXTREMITIES: No edema of feet. SKIN: Right chest wall Mediport site did have some swelling redness and tenderness to touch NEUROLOGICAL: The patient is awake, alert, oriented x3, mood and affect normal. Results CBC & Chem 7: 11/09/24 09:30 11/09/24 09:30 Labs: Abnormal Lab Results - Last 24 Hours (Table) 11/09/24 11/09/24 11/09/24 Range/Units 09:30 09:30 09:30 Lymphocytes # 0.9 L (1.0-4.8) k/uL APTT 20.8 L (22.0-30.0) sec BUN 32 H (9-20) mg/dL Glucose 236 H (74-99) mg/dL Assessment and Plan (1) Infected venous access port Current Visit: Yes Status: Acute Code(s): T80.219A - UNSP INFECTION DUE TO CENTRAL VENOUS CATHETER, INIT ENCNTR SNOMED Code(s): 434089822 Plan: 1patient presented to hospital with pain to the right chest wall as well as the right shoulder area and this patient was recently did have a Mediport placement on 10/28/2024 and apparently has been accessed for blood draw on 11/04/2024 now with worsening pain swelling and redness with abnormal CT concerning for possible port infection will need to cover for resistant gram-positive as well as gram-negative pathogen 2cefazolin has been discontinued 3blood culture has been obtained 4patient started on vancomycin pharmacy to dose and cefepime while waiting for the culture to finalize Question concern answered We will follow on clinical condition and cultures to further adjust medication if needed Thank you for this consultation we will follow the patient along with you Dictation was produced using [employer] dictation software. please excuse any grammatical, word or spelling errors. Time with Patient: Greater than 30
[2024-11-10 07:11] LABS: Glucose,Whole Blood 144 mg/dL (70-110)
[2024-11-10] MEDS: PANTOPRAZOLE 40 MG TABLET PO SCH (07:43)
[2024-11-10] MEDS: LORATADINE 10 MG TAB PO SCH (07:43)
[2024-11-10] MEDS ORDERED: ENOXAPARIN 40 MG/0.4 ML SYRINGE SQ SCH (09:00)
[2024-11-10] MEDS: ONDANSETRON ODT 4 MG TAB PO PRN (09:02)
--- NOTE | 2024-11-10 09:27 | P.GSCN ---
History of Present Illness Consult date: 11/10/24 Reason for Consult: Port site infection History of present illness: 44-year-old male diagnosed with lymphoma recently. Had a Port-A-Cath placed 2 weeks ago. Received his first course of chemotherapy last Monday. Starting on Monday morning he developed some shoulder discomfort. He says he chronically has shoulder pain. As the day progressed however it worsened and he noticed some swelling at his recent Port-A-Cath site. Came to the ER for evaluation. CAT scan showed a small amount of fluid around the port. Patient noticed Monday evening a small amount of pink discoloration to the skin. He was found to have fevers here. Apparently the ER spoke with Dr. Brantley and there are plans already in place for Port-A-Cath removal tomorrow. Patient is afebrile this morning. Says his pain is better and the swelling is much less than it was. Review of Systems The patient denies any acute changes in vision or hearing, no dysphagia or odynophagia, no chest pain or shortness of breath, no dysuria or hematuria, no headache, no runny nose, no rectal bleeding or melena, no unexplained weight loss Past Medical History Past Medical History: Pneumonia Additional Past Medical History / Comment(s): swelling and lump above rt collar bone-dx lymphoma-finishing tx 10-25-24 w/ dexamethasone-bx rt neck mass-needle bx, left kidney "lit up in pet scan",-following w/ Dr Bernal, hx bronchitis,pneumonia back in high school,kidney stones-passed on own 2023 History of Any Multi-Drug Resistant Organisms: None Reported Past Surgical History: No Surgical Hx Reported Additional Past Surgical History / Comment(s): Right port placement Past Anesthesia/Blood Transfusion Reactions: No Reported Reaction Additional Past Anesthesia/Blood Transfusion Reaction / Comm: no surgical hx Past Psychological History: No Psychological Hx Reported Smoking Status: Former smoker Past Alcohol Use History: None Reported Past Drug Use History: None Reported - Past Family History Mother Family Medical History: Cancer Additional Family Medical History / Comment(s): lung CA. maternal uncle lung CA. maternal aunt breast CA. maternal grandfather leukemia Father Additional Family Medical History / Comment(s): paternal uncle pancreatic CA Medications and Allergies Home Medications Medication Instructions Recorded Confirmed Type Aprepitant [Emend] 80 mg PO DIRECTED 11/09/24 11/09/24 History Empagliflozin [Jardiance] 10 mg PO DIRECTED 11/09/24 11/09/24 History Loperamide HCl [Imodium A-D] 4 mg PO QID PRN 11/09/24 11/09/24 History Loratadine [Claritin] 10 mg PO DAILY 11/09/24 11/09/24 History OLANZapine [ZyPREXA] 2.5 mg PO DIRECTED 11/09/24 11/09/24 History Omeprazole [PriLOSEC] 20 mg PO DAILY 11/09/24 11/09/24 History Ondansetron [Zofran] 4 mg PO Q4H PRN 11/09/24 11/09/24 History predniSONE [Deltasone] 100 mg PO DIRECTED 11/09/24 11/09/24 History Allergies Allergy/AdvReac Type Severity Reaction Status Date / Time No Known Allergies Allergy Verified 11/09/24 09:57 Surgical - Exam Vital Signs Temp Pulse Resp BP Pulse Ox 97.9 F 94 18 154/89 96 11/09/24 08:33 11/09/24 08:33 11/09/24 08:33 11/09/24 08:33 11/09/24 08:33 Physical exam: General: Well-developed, well-nourished HEENT: Normocephalic, sclerae nonicteric Abdomen: Nontender, nondistended Extremities: No edema Neuro: Alert and oriented Chest: Right-sided Port-A-Cath in place with mild erythema, minimal tenderness Results - Labs 11/09/24 09:30 11/09/24 09:30 Abnormal Lab Results - Last 24 Hours (Table) 11/09/24 11/09/24 11/09/24 Range/Units 09:30 09:30 09:30 Lymphocytes # 0.9 L (1.0-4.8) k/uL APTT 20.8 L (22.0-30.0) sec BUN 32 H (9-20) mg/dL Glucose 236 H (74-99) mg/dL POC Glucose (mg/dL) (70-110) mg/dL 11/09/24 11/09/24 11/10/24 Range/Units 17:34 19:57 07:10 Lymphocytes # (1.0-4.8) k/uL APTT (22.0-30.0) sec BUN (9-20) mg/dL Glucose (74-99) mg/dL POC Glucose (mg/dL) 176 H 164 H 144 H (70-110) mg/dL Diabetes panel 11/09/24 Range/Units 09:30 Sodium 137 (137-145) mmol/L Potassium 4.0 (3.5-5.1) mmol/L Chloride 98 (98-107) mmol/L Carbon Dioxide 30 (22-30) mmol/L BUN 32 H (9-20) mg/dL Creatinine 0.68 (0.66-1.25) mg/dL Glucose 236 H (74-99) mg/dL Calcium 8.6 (8.4-10.2) mg/dL AST 23 (17-59) U/L ALT 47 (4-49) U/L Alkaline Phosphatase 120 (38-126) U/L Total Protein 6.3 (6.3-8.2) g/dL Albumin 3.8 (3.5-5.0) g/dL Calcium panel 11/09/24 Range/Units 09:30 Calcium 8.6 (8.4-10.2) mg/dL Albumin 3.8 (3.5-5.0) g/dL Pituitary panel 11/09/24 Range/Units 09:30 Sodium 137 (137-145) mmol/L Potassium 4.0 (3.5-5.1) mmol/L Chloride 98 (98-107) mmol/L Carbon Dioxide 30 (22-30) mmol/L BUN 32 H (9-20) mg/dL Creatinine 0.68 (0.66-1.25) mg/dL Glucose 236 H (74-99) mg/dL Calcium 8.6 (8.4-10.2) mg/dL Adrenal panel 11/09/24 Range/Units 09:30 Sodium 137 (137-145) mmol/L Potassium 4.0 (3.5-5.1) mmol/L Chloride 98 (98-107) mmol/L Carbon Dioxide 30 (22-30) mmol/L BUN 32 H (9-20) mg/dL Creatinine 0.68 (0.66-1.25) mg/dL Glucose 236 H (74-99) mg/dL Calcium 8.6 (8.4-10.2) mg/dL Total Bilirubin 1.0 (0.2-1.3) mg/dL AST 23 (17-59) U/L ALT 47 (4-49) U/L Alkaline Phosphatase 120 (38-126) U/L Total Protein 6.3 (6.3-8.2) g/dL Albumin 3.8 (3.5-5.0) g/dL Assessment and Plan (1) Infected venous access port Narrative/Plan: 44-year-old male with infected Port-A-Cath. Patient just finished a regular diet and plans are already underway for Port-A-Cath removal tomorrow. Patient does not appear toxic. Will keep n.p.o. after midnight with plans for port removal tomorrow. Dr. Brantley will discuss alternative access means following that. Current Visit: Yes Status: Acute Code(s): T80.219A - UNSP INFECTION DUE TO CENTRAL VENOUS CATHETER, INIT ENCNTR SNOMED Code(s): 765351727
[2024-11-10 09:42] LABS: Blood Urea Nitrogen 18.8 mg/dL (9.0-27.0); Calcium 8.2 mg/dL (8.7-10.3); Carbon Dioxide 25.6 mmol/L (21.6-31.8); Chloride 99 mmol/L (96-109); Glucose 155 mg/dL (70-110); Potassium 4.6 mmol/L (3.5-5.5); Sodium 136 mmol/L (135-145)
[2024-11-10 11:01] LABS: Basophils # (A) 0.02 X 10*3/uL (0.00-0.10); Basophils % (A) 0.7 %; Eosinophils # (A) 0.06 X 10*3/uL (0.04-0.35); Eosinophils % (A) 2.2 %; HCT 39.7 % (39.6-50.0); HGB 12.6 g/dL (13.0-17.0); Lymphocytes # (A) 0.34 X 10*3/uL (0.90-5.00); Lymphocytes % (A) 12.6 %; MCH 28.6 pg (27.0-32.0); MCHC 31.7 g/dL (32.0-37.0); MCV 90.2 FL (80.0-97.0); Mean Platelet Volume 10.5 FL (9.5-12.2); Monocytes # (A) 0.28 X 10*3/uL (0.20-1.00); Monocytes % (A) 10.4 %; NRBC Per 100 WBC 0 X 10*3/uL (0.00-0.01); Neutrophils # (A) 1.97 X 10*3/uL (1.80-7.70); Platelet Count 155 X 10*3/uL (140-440); RBC Morphology Normal (Normal); RDW 13.5 % (11.5-14.5)
[2024-11-10] MEDS: HYDROcodone/APAP 5-325MG 1 EACH TAB PO PRN (11:37)
[2024-11-10 12:06] LABS: Glucose,Whole Blood 134 mg/dL (70-110)
[2024-11-10] MEDS: KETOROLAC 15 MG/ML 1 ML VIAL IVP STA (13:03)
--- NOTE | 2024-11-10 15:10 | P.PN ---
Subjective Progress Note Date: 11/10/24 Hospital Course: Patient is a very pleasant 44-year-old male recently diagnosed with B-cell lymphoma and type 2 diabetes mellitus. Patient underwent Chemo-Port placement on 10/28/[address] Brantley and started on chemotherapy by oncologist, Dr. Bernal. He presented to the emergency department today secondary to concerns of redness, swelling, and pain to right anterior chest radiating into right shoulder region. Patient reports he first noticed the symptoms yesterday but were mild and states significantly worsened overnight. He denies having any fevers, chills, diaphoresis, dizziness, lightheadedness, shortness of breath, or experiencing any numbness/tingling/weakness in his right arm. Patient reports pain directly at site of Chemo-Port radiating across to his right anterior chest and into his right shoulder. He denies having any drainage from site. Upon arrival to our facility, patient underwent evaluation in the emergency department. Vital signs upon arrival show blood pressure 154/89, heart rate 94, respiratory rate 18, temp 97.9 F, and SpO2 of 96% on room air. Labs completed and reviewed. CBC unremarkable. Coagulation profile showing a low PTT of 20.8 otherwise normal findings. BMP showing mild prerenal azotemia with BUN of 32 ot herwise normal findings. Blood glucose was elevated at 236. Lactic acid was 1.6. Liver profile unremarkable. Venous Doppler right upper extremity negative for DVT. CT chest showing nonspecific ill-defined fluid and fat stranding surrounding the right Mediport hub concerning for infectious process with no focal fluid collection or abscess identified. Patient admitted to observation unit under our services with consultation to infectious disease and general surgery. Physical exam: Patient seen and fully evaluated at bedside this morning. He does report moderate pain in right anterior chest and shoulder but states he does not like the way the pain medication makes him feel. Order to be placed for Toradol 15 mg IV and patient also has [place] 5/325 mg tablets that at bedside reports he has tolerated in the past. He denies any other complaints including headache, lightheadedness, dizziness, palpitations, shortness of breath, congestion, nausea or vomiting, or any other complaints at this time. Vital signs reviewed and stable. General: Nontoxic, no distress and appears stated age. Derm: Skin warm and dry, normal coloration for ethnicity. Patient with increased warmth, mild swelling and erythema over Chemo-Port to right anterior chest extending into right clavicular region. No drainage noted. Head: Atraumatic, normocephalic and symmetric. Eyes: EOM's intact, no lid lag, and anicteric sclera Mouth: no lip lesions, mucus membranes moist Cardiovascular: regular rate and rhythm with normal S1S2, no murmur, positive posterior tibial pulses bilaterally, and cap refill < 2 seconds. Lungs: Respirations even, regular, and unlabored on room air. Lungs CTA bilaterally, no rhonchi, no rales, no wheezing, and no accessory muscle usage. Abdominal: soft, nontender to palpation, no guarding, no appreciable organomegaly Ext: ROM intact. No gross muscle atrophy, no edema, no contractures Neuro: Speech clear, face symmetrical and CN II-XII grossly intact with no noted focal neuro deficits Psych: Alert and oriented to person, place, time, and situation. Appropriate and pleasant affect. Assessment and Plan of Care: Bacteremia Infected Mediport with surrounding cellulitis -CT chest showing nonspecific ill-defined fluid and fat stranding surrounding the right Mediport hub concerning for infectious process with no focal fluid collection or abscess identified. -Preliminary blood culture resulting positive for gram-positive cocci in clusters, concerning for MSSA. Discussed with pharmacist and infectious disease physician, vancomycin and cefepime discontinued and patient placed on cefazolin 3 g every 8 hours. -Infectious disease following, discussed plan of care with Dr. Schrader. -General Surgery following, patient is tentatively scheduled for removal of Mediport tomorrow. -Follow-up on blood culture, order placed for catheter tip culture if the dec ision is made by general surgery to remove port -Patient started on broad-spectrum antibiotics with vancomycin 2250 mg every 8 hours and cefepime 2 g every 8 hours. Monitor renal function and vancomycin trough closely for any signs/symptoms of vancomycin associated renal toxicity -Symptomatic care and pain management with Tylenol 650 mg every 6 hours as needed for mild pain, [place] 5/325 mg tablets as needed for moderate pain, and Dilaudid 1 mg every 3 hours as needed for severe pain. Type II [id number] diabetes mellitus with hyperglycemia -Continue Farxiga 5 mg daily and patient placed on glycemic protocol with Humalog sliding scale. B-cell lymphoma -Continue to follow-up outpatient with oncology for continued treatment upon discharge. Data and imaging reviewed: Morning labs reviewed. CBC showing bicytopenia with WBC count of 2.70 and hemoglobin of 12.6. BMP unremarkable with exception of hyperglycemia with glucose of 155. Preliminary blood culture resulting positive for gram-positive cocci in clusters, concerning for MSSA Vital signs reviewed. Blood pressure elevated this morning and at 167/94, heart rate 101, respiratory rate 18, temp 98.4 F, and SpO2 of 93% on room air. CODE STATUS: Full code DVT prophylaxis: Lovenox Discussed with: Patient, patient's family at bedside, RN, and infectious disease physician. Anticipated discharge date: Pending clinical course. Anticipated discharge place: Home Patient was seen independently by Nurse Practitioner. This document was prepared using [employer] dictation software. Please allow for errors in photo editor while rare they do occur. Boris Wong NP rendered care for this patient independently, reviewed the findings and plan as documented in the note above and agree with plan. I did not physically speak with or examine the patient on this date. . Objective - Vital Signs Vital signs: Vital Signs Temp 98.4 F 11/10/24 07:12 Pulse 101 H 11/10/24 07:12 Resp 18 11/10/24 07:12 BP 167/94 11/10/24 07:12 Pulse Ox 93 L 11/10/24 07:12 FiO2 Intake & Output 11/09/24 11/10/24 11/10/24 18:59 06:59 18:59 Intake Total 480 200 Balance 480 200 Weight 163.293 kg Intake: Oral 480 200 Other: # Voids 2 2 - Labs CBC & Chem 7: 11/10/24 04:11 11/10/24 04:11 Labs: Abnormal Lab Results - Last 24 Hours (Table) 11/09/24 11/09/24 11/09/24 Range/Units 09:30 09:30 09:30 Lymphocytes # 0.9 L (1.0-4.8) k/uL APTT 20.8 L (22.0-30.0) sec BUN 32 H (9-20) mg/dL Glucose 236 H (74-99) mg/dL POC Glucose (mg/dL) (70-110) mg/dL 11/09/24 11/09/24 11/10/24 Range/Units 17:34 19:57 07:10 Lymphocytes # (1.0-4.8) k/uL APTT (22.0-30.0) sec BUN (9-20) mg/dL Glucose (74-99) mg/dL POC Glucose (mg/dL) 176 H 164 H 144 H (70-110) mg/dL
[2024-11-10] MEDS: ceFAZolin 3 GM in SODIUM CHLORIDE 0.9% 100 ML IVPB SCH (15:39)
--- NOTE | 2024-11-10 16:24 | P.PN ---
Subjective Progress Note Date: 11/10/24 Principal diagnosis: Reason for follow-up is Mediport infection and bacteremia Patient is a 44-year-old male with a past medical history significant for pneumonia, diabetes mellitus and recently diagnosed with B cell lymphoma for which the patient did have right chest wall Mediport placement on 10/28/2024 patient presented to hospital right chest wall upper shoulder pain concerning for reported cellulitis CT did not show any abscess. On today's evaluation that is 11/10/2024, Patient did spike a fever last night of 102 F however is afebrile this morning patient is currently on room air and denies having any shortness of breath, the patient denies any chest pain or cough, the patient denies any nausea vomiting did not have any abdominal pain and no diarrhea, pain to the right side of the chest has decreased in intensity. Patient white count is 2.70, creatinine is 1.0 blood culture with MSSA Objective - Vital Signs Vital signs: Vital Signs Temp 98.4 F 11/10/24 07:12 Pulse 101 H 11/10/24 07:12 Resp 18 11/10/24 07:12 BP 167/94 11/10/24 07:12 Pulse Ox 93 L 11/10/24 07:12 FiO2 Intake & Output 11/09/24 11/10/24 11/10/24 18:59 06:59 18:59 Intake Total 480 200 Balance 480 200 Weight 163.293 kg Intake: Oral 480 200 Other: Voiding Method Toilet # Voids 2 2 - Exam GENERAL DESCRIPTION: Middle-age male lying in bed in no distress RESPIRATORY SYSTEM: Unlabored breathing , decreased breath sounds at bases HEART: S1 S2 regular rate and rhythm , right-sided chest wall erythema slightly decreased ABDOMEN: Soft , no tenderness EXTREMITIES: No edema feet - Labs CBC & Chem 7: 11/10/24 04:11 11/10/24 04:11 Labs: Abnormal Lab Results - Last 24 Hours (Table) 11/09/24 11/09/24 11/10/24 Range/Units 17:34 19:57 04:11 WBC 2.70 L (4.50-10.00) X 10*3/uL Hgb 12.6 L (13.0-17.0) g/dL MCHC 31.7 L (32.0-37.0) g/dL Lymphocytes # 0.34 L (0.90-5.00) X 10*3/uL Glucose (70-110) mg/dL POC Glucose (mg/dL) 176 H 164 H (70-110) mg/dL Calcium (8.7-10.3) mg/dL 11/10/24 11/10/24 11/10/24 Range/Units 04:11 07:10 12:04 WBC (4.50-10.00) X 10*3/uL Hgb (13.0-17.0) g/dL MCHC (32.0-37.0) g/dL Lymphocytes # (0.90-5.00) X 10*3/uL Glucose 155 H (70-110) mg/dL POC Glucose (mg/dL) 144 H 134 H (70-110) mg/dL Calcium 8.2 L (8.7-10.3) mg/dL Microbiology - Last 24 Hours (Table) 11/09/24 11:31 Blood Culture Gram Stain - Preliminary Blood Blood Culture - Preliminary Molecular ID Assessment and Plan (1) Infected venous access port Current Visit: Yes Status: Acute Code(s): T80.219A - UNSP INFECTION DUE TO CENTRAL VENOUS CATHETER, INIT ENCNTR SNOMED Code(s): 016600492 (2) MSSA bacteremia Current Visit: Yes Status: Acute Code(s): R78.81 - BACTEREMIA; B95.61 - METHICILLIN SUSCEP STAPH INFCT CAUSING DIS CLASSD ELSWHR SNOMED Code(s): 167991545 Plan: 1patient presented to hospital with pain to the right chest wall as well as the right shoulder area and this patient was recently did have a Mediport placement on 10/28/2024 and apparently has been accessed for blood draw on 11/04/2024 now with worsening pain swelling and redness with abnormal CT concerning for possible port infection will need to cover for resistant gram-positive as well as gram-negative pathogen 2blood cultures came back positive with MSSA source likely port infection 3I will discontinue vancomycin and cefepime start the patient on cefazolin, surgery has seen the patient and planning for removal of the port Question concern answered Dictation was produced using [employer] dictation software. please excuse any grammatical, word or spelling errors. Time with Patient: Less than 30
[2024-11-10 17:24] LABS: Glucose,Whole Blood 136 mg/dL (70-110)
[2024-11-10 20:06] LABS: Glucose,Whole Blood 169 mg/dL (70-110)
[2024-11-11] MEDS ORDERED: VANCOMYCIN TROUGH DUE 1 EACH MISC MISCELLANE ONE (05:00)
[2024-11-11 07:20] LABS: Glucose,Whole Blood 128 mg/dL (70-110)
[2024-11-11 08:40] LABS: HCT 34.7 % (39.6-50.0); HGB 11.5 g/dL (13.0-17.0); MCH 29.3 pg (27.0-32.0); MCHC 33.1 g/dL (32.0-37.0); MCV 88.5 FL (80.0-97.0); Mean Platelet Volume 10.4 FL (9.5-12.2); NRBC Per 100 WBC 0.02 X 10*3/uL (0.00-0.01); Platelet Count 169 X 10*3/uL (140-440); RBC 3.92 X 10*6/uL (4.40-5.60); RDW 13.2 % (11.5-14.5); WBC 3.95 X 10*3/uL (4.50-10.00)
[2024-11-11 08:48] LABS: ALT 38 U/L (10-49); AST 24 U/L (14-35); Albumin 3.4 g/dL (3.8-4.9); Albumin/Globulin Ratio 1.79 Ratio (1.60-3.17); Alkaline Phosphatase 99 U/L (41-126); BUN/Creat Ratio 13.67 Ratio (12.00-20.00); Blood Urea Nitrogen 12.3 mg/dL (9.0-27.0); Calcium 8.1 mg/dL (8.7-10.3); Carbon Dioxide 25.2 mmol/L (21.6-31.8); Chloride 98 mmol/L (96-109); Globulin 1.9 g/dL (1.6-3.3); Glucose 149 mg/dL (70-110); Potassium 4.2 mmol/L (3.5-5.5); Sodium 133 mmol/L (135-145); Total Bilirubin 0.3 mg/dL (0.3-1.2); Total Protein 5.3 g/dL (6.2-8.2)
[2024-11-11] MEDS: IV FLUID CONTINUATION 1,000 ML IV ONE (10:40)
[2024-11-11] MEDS: ONDANSETRON 4 MG/2 ML VIAL IVP STA (10:55)
[2024-11-11] MEDS: DEXAMETHASONE SOD PHOSPHATE 4 MG/ML 1 ML VIAL IVP STA (10:57)
[2024-11-11] MEDS: LIDOCAINE 1%-EPI 1:100,000 20 ML VIAL SQ ONE ×2 (12:10→12:31)
[2024-11-11] MEDS ORDERED: PROPOFOL 10 MG/ML 20 ML VIAL IV ONE (12:12)
[2024-11-11] MEDS ORDERED: KETAMINE HCL IN 0.9 % NACL 50 MG/5 ML SYRINGE ONE (12:12)
[2024-11-11] MEDS ORDERED: fentaNYL (PF) 50 MCG/ML 2 ML AMP ONE (12:12)
[2024-11-11] MEDS ORDERED: MIDAZOLAM 2 MG/2 ML VIAL ONE (12:12)
--- NOTE | 2024-11-11 12:48 | P.OP ---
Date of Procedure: 11/11/24 Preoperative Diagnosis: Infected Port-A-Cath Postoperative Diagnosis: Effective Port-A-Cath Procedure(s) Performed: Removal of right subclavian Port-A-Cath Anesthesia: MAC Surgeon: Ned Brantley Pathology: none sent Condition: stable Disposition: PACU Description of Procedure: The patient is placed on the op table in the supine position. He received general endotracheal tube anesthesia. His right chest wall was prepped in AP sterile fashion. The skin incised at the port site. There was some purulent fluid. This was cultured. Then using blunt sharp/dissection electrocautery the port was dissected free. T the wounds were hemostased. There is no bleeding seen. Wounds packed with wet-to-dry Kerlix. Patient tolerated well. He was sent to recovery in stable condition.
[2024-11-11 13:43] LABS: Glucose,Whole Blood 137 mg/dL (70-110)
[2024-11-11] MEDS: amLODIPine 5 MG TAB PO SCH (14:09)
--- NOTE | 2024-11-11 16:19 | P.PN ---
Subjective Progress Note Date: 11/11/24 Hospital Course: Patient is a very pleasant 44-year-old male recently diagnosed with B-cell lymphoma and type 2 diabetes mellitus. Patient underwent Chemo-Port placement on 10/28/[address] Brantley and started on chemotherapy by oncologist, Dr. Bernal. He presented to the emergency department today secondary to concerns of redness, swelling, and pain to right anterior chest radiating into right shoulder region. Patient reports he first noticed the symptoms yesterday but were mild and states significantly worsened overnight. He denies having any fevers, chills, diaphoresis, dizziness, lightheadedness, shortness of breath, or experiencing any numbness/tingling/weakness in his right arm. Patient reports pain directly at site of Chemo-Port radiating across to his right anterior chest and into his right shoulder. He denies having any drainage from site. Upon arrival to our facility, patient underwent evaluation in the emergency department. Vital signs upon arrival show blood pressure 154/89, heart rate 94, respiratory rate 18, temp 97.9 F, and SpO2 of 96% on room air. Labs completed and reviewed. CBC unremarkable. Coagulation profile showing a low PTT of 20.8 otherwise normal findings. BMP showing mild prerenal azotemia with BUN of 32 ot herwise normal findings. Blood glucose was elevated at 236. Lactic acid was 1.6. Liver profile unremarkable. Venous Doppler right upper extremity negative for DVT. CT chest showing nonspecific ill-defined fluid and fat stranding surrounding the right Mediport hub concerning for infectious process with no focal fluid collection or abscess identified. Patient admitted to observation unit under our services with consultation to infectious disease and general surgery. Physical exam: Patient seen and fully evaluated at bedside this morning. Patient reports having moderate pain in right anterior chest over Mediport site radiating into right shoulder. He denies any other complaints including headache, lightheadedness, dizziness, palpitations, shortness of breath, congestion, nausea or vomiting, or any other complaints at this time. Vital signs reviewed and stable. General: Nontoxic, no distress and appears stated age. Derm: Skin warm and dry, normal coloration for ethnicity. Patient with increased warmth, mild swelling and erythema over Chemo-Port to right anterior chest extending into right clavicular region. No drainage noted. Head: Atraumatic, normocephalic and symmetric. Eyes: EOM's intact, no lid lag, and anicteric sclera Mouth: no lip lesions, mucus membranes moist Cardiovascular: regular rate and rhythm with normal S1S2, no murmur, positive posterior tibial pulses bilaterally, and cap refill < 2 seconds. Lungs: Respirations even, regular, and unlabored on room air. Lungs CTA bilaterally, no rhonchi, no rales, no wheezing, and no accessory muscle usage. Abdominal: soft, nontender to palpation, no guarding, no appreciable organomegaly Ext: ROM intact. No gross muscle atrophy, no edema, no contractures Neuro: Speech clear, face symmetrical and CN II-XII grossly intact with no noted focal neuro deficits Psych: Alert and oriented to person, place, time, and situation. Appropriate and pleasant affect. Assessment and Plan of Care: Bacteremia Infected Mediport with surrounding cellulitis -CT chest showing nonspecific ill-defined fluid and fat stranding surrounding the right Mediport hub concerning for infectious process with no focal fluid c ollection or abscess identified. -Preliminary blood culture resulting positive for gram-positive cocci in clusters, concerning for MSSA. Discussed with pharmacist and infectious disease physician, vancomycin and cefepime discontinued and patient placed on cefazolin 3 g every 8 hours. -Infectious disease following, discussed plan of care with Dr. Schrader. -General Surgery following, patient is scheduled for removal of Mediport later today. -Follow-up on blood culture, order placed for catheter tip culture if the decision is made by general surgery to remove port -Continue IV antibiotics with cefazolin 3 g every 8 hours. -Symptomatic care and pain management with Tylenol 650 mg every 6 hours as needed for mild pain, Omro 5/325 mg tablets as needed for moderate pain, and Dilaudid 1 mg every 3 hours as needed for severe pain. Type II [id number] diabetes mellitus with hyperglycemia -Continue Farxiga 5 mg daily and patient placed on glycemic protocol with Humalog sliding scale. Hypertension -Suspect increased hypertension secondary to pain, however patient and patient's at bedside states since chemotherapy they have been monitoring it and it has been a little elevated i with systolic pressure of 140s at home at baseline. Will start patient on amlodipine 5 mg daily. B-cell lymphoma -Continue to follow-up outpatient with oncology for continued treatment upon discharge. Data and imaging reviewed: Morning labs reviewed. CBC showing bicytopenia with WBC count of 3.95 and hemoglobin of 11.5. BMP showing mild hyponatremia with sodium of 133 and blood glucose of 149. Magnesium 2.0. Liver profile showing low total protein of 5.3 and hypoalbuminemia with albumin of 3.4.. Preliminary blood culture resulting positive for gram-positive cocci in clusters, concerning for MSSA Vital signs reviewed. Blood pressure initially elevated this morning at 194/73 but patient reported moderate pain and is currently 156/84 after pain medication with heart rate of 86, respiratory rate of 16 and SpO2 of 94% on room air. Temp 98.0 F. CODE STATUS: Full code DVT prophylaxis: Lovenox Discussed with: Patient, patient's family at bedside, RN, and infectious disease physician. Anticipated discharge date: Pending clinical course. Anticipated discharge place: Home Patient was seen independently by Nurse Practitioner. This document was prepared using [employer] dictation software. Please allow for errors in auto dealer while rare they do occur. Boris Wong NP rendered care for this patient independently, reviewed the findings and plan as documented in the note above and agree with plan. I did not physically speak with or examine the patient on this date. . Objective - Vital Signs Vital signs: Vital Signs Temp 98.0 F 11/11/24 07:16 Pulse 82 11/11/24 07:16 Resp 20 11/11/24 07:16 BP 194/73 11/11/24 07:16 Pulse Ox 93 L 11/11/24 07:16 FiO2 Intake & Output 11/10/24 11/11/24 11/11/24 18:59 06:59 18:59 Intake Total 2637 2019 Balance 2637 2019 Intake: Intake, IV Titration 1200 1300 Amount Sodium Chloride 0.9% 1, 1200 1200 000 ml @ 100 mls/hr IV . Q10H [facility] Rx#:[id number] ceFAZolin 3 gm In Sodium 100 Chloride 0.9% 100 ml @ 200 mls/hr IVPB Q8HR [facility] Rx#:[id number] Oral 1437 720 Other: Voiding Method Toilet Toilet # Voids 3 1 - Labs CBC & Chem 7: 11/11/24 04:39 11/11/24 04:39 Labs: Abnormal Lab Results - Last 24 Hours (Table) 11/10/24 11/10/24 11/10/24 Range/Units 04:11 04:11 12:04 WBC 2.70 L (4.50-10.00) X 10*3/uL Hgb 12.6 L (13.0-17.0) g/dL MCHC 31.7 L (32.0-37.0) g/dL Lymphocytes # 0.34 L (0.90-5.00) X 10*3/uL Glucose 155 H (70-110) mg/dL POC Glucose (mg/dL) 134 H (70-110) mg/dL Calcium 8.2 L (8.7-10.3) mg/dL 11/10/24 11/10/24 11/11/24 Range/Units 17:23 20:02 07:20 WBC (4.50-10.00) X 10*3/uL Hgb (13.0-17.0) g/dL MCHC (32.0-37.0) g/dL Lymphocytes # (0.90-5.00) X 10*3/uL Glucose (70-110) mg/dL POC Glucose (mg/dL) 136 H 169 H 128 H (70-110) mg/dL Calcium (8.7-10.3) mg/dL Microbiology - Last 24 Hours (Table) 11/09/24 11:31 Blood Culture Gram Stain - Preliminary Blood Blood Culture - Preliminary Presumptive Staph aureus Molecular ID
--- NOTE | 2024-11-11 16:29 | P.PN ---
Subjective Progress Note Date: 11/11/24 Principal diagnosis: Reason for follow-up is Mediport infection and bacteremia Patient is a 44-year-old male with a past medical history significant for pneumonia, diabetes mellitus and recently diagnosed with B cell lymphoma for which the patient did have right chest wall Mediport placement on 10/28/2024 patient presented to hospital right chest wall upper shoulder pain concerning for reported cellulitis CT did not show any abscess.Patient is status post removal of the right subclavian Port-A-Cath on 11/11/2024. On today's evaluation that is 11/11/2024, patient has been afebrile, patient is breathing comfortably and is currently on 2 L nasal cannula oxygen patient denies having any significant cough no chest pain, patient denies nausea vomiting or diarrhea and no abdominal pain. Patient white count is 3.95, creatinine 0.9 blood culture with MSSA Objective - Vital Signs Vital signs: Vital Signs Temp 97.6 F 11/11/24 13:59 Pulse 92 11/11/24 15:40 Resp 13 11/11/24 13:59 BP 122/84 11/11/24 15:40 Pulse Ox 93 L 11/11/24 15:40 FiO2 Intake & Output 11/10/24 11/11/24 11/11/24 18:59 06:59 18:59 Intake Total 2637 2019 250 Output Total 855 Balance 2637 2019 -605 Intake: IV 250 Intake, IV Titration 1200 1300 Amount Sodium Chloride 0.9% 1, 1200 1200 000 ml @ 100 mls/hr IV . Q10H [facility] Rx#:[id number] ceFAZolin 3 gm In Sodium 100 Chloride 0.9% 100 ml @ 200 mls/hr IVPB Q8HR [facility] Rx#:[id number] Oral 1437 720 Output: Urine 850 Estimated Blood Loss 5 Other: Voiding Method Toilet Toilet Toilet # Voids 3 1 - Exam GENERAL DESCRIPTION: Middle-age male lying in bed in no distress RESPIRATORY SYSTEM: Unlabored breathing , decreased breath sounds at bases HEART: S1 S2 regular rate and rhythm , right chest wall is currently dressed postoperatively ABDOMEN: Soft , no tenderness EXTREMITIES: No edema feet - Labs CBC & Chem 7: 11/11/24 04:39 11/11/24 04:39 Labs: Abnormal Lab Results - Last 24 Hours (Table) 11/10/24 11/10/24 11/11/24 Range/Units 17:23 20:02 04:39 WBC 3.95 L (4.50-10.00) X 10*3/uL RBC 3.92 L (4.40-5.60) X 10*6/uL Hgb 11.5 L (13.0-17.0) g/dL Hct 34.7 L (39.6-50.0) % NRBC/100 WBC Diff 0.02 H (0.00-0.01) X 10*3/uL Sodium (135-145) mmol/L Glucose (70-110) mg/dL POC Glucose (mg/dL) 136 H 169 H (70-110) mg/dL Calcium (8.7-10.3) mg/dL Total Protein (6.2-8.2) g/dL Albumin (3.8-4.9) g/dL 11/11/24 11/11/24 11/11/24 Range/Units 04:39 07:20 13:41 WBC (4.50-10.00) X 10*3/uL RBC (4.40-5.60) X 10*6/uL Hgb (13.0-17.0) g/dL Hct (39.6-50.0) % NRBC/100 WBC Diff (0.00-0.01) X 10*3/uL Sodium 133 L (135-145) mmol/L Glucose 149 H (70-110) mg/dL POC Glucose (mg/dL) 128 H 137 H (70-110) mg/dL Calcium 8.1 L (8.7-10.3) mg/dL Total Protein 5.3 L (6.2-8.2) g/dL Albumin 3.4 L (3.8-4.9) g/dL Microbiology - Last 24 Hours (Table) 11/09/24 11:31 Blood Culture Gram Stain - Preliminary Blood Blood Culture - Preliminary Presumptive Staph aureus Molecular ID Assessment and Plan (1) Infected venous access port Current Visit: Yes Status: Acute Code(s): T80.219A - UNSP INFECTION DUE TO CENTRAL VENOUS CATHETER, INIT ENCNTR SNOMED Code(s): 713892823 (2) MSSA bacteremia Current Visit: Yes Status: Acute Code(s): R78.81 - BACTEREMIA; B95.61 - METHICILLIN SUSCEP STAPH INFCT CAUSING DIS CLASSD ELSWHR SNOMED Code(s): 457300189 Plan: 1patient presented to hospital with pain to the right chest wall as well as the right shoulder area and this patient was recently did have a Mediport placement on 10/28/2024 and apparently has been accessed for blood draw on 11/04/2024 now with worsening pain swelling and redness with abnormal CT concerning for possible port infection will need to cover for resistant gram-positive as well as gram-negative pathogen 2blood cultures came back positive with MSSA source likely port infection 3patient did have removal of the right subclavian Port-A-Cath blood culture will be repeated to document clearance patient is being treated with the cefazolin Dictation was produced using [employer] dictation software. please excuse any grammatical, word or spelling errors. Time with Patient: Less than 30
[2024-11-11 17:32] LABS: Glucose,Whole Blood 206 mg/dL (70-110)
[2024-11-11 20:17] LABS: Glucose,Whole Blood 258 mg/dL (70-110)
[2024-11-12 07:22] LABS: Glucose,Whole Blood 153 mg/dL (70-110)
[2024-11-12 08:32] LABS: HCT 34.9 % (39.6-50.0); HGB 11.4 g/dL (13.0-17.0); MCH 28.8 pg (27.0-32.0); MCHC 32.7 g/dL (32.0-37.0); MCV 88.1 FL (80.0-97.0); Mean Platelet Volume 10.1 FL (9.5-12.2); NRBC Per 100 WBC 0.02 X 10*3/uL (0.00-0.01); Platelet Count 243 X 10*3/uL (140-440); RBC 3.96 X 10*6/uL (4.40-5.60); RDW 13.4 % (11.5-14.5); WBC 10.98 X 10*3/uL (4.50-10.00)
[2024-11-12 09:01] LABS: ALT 30 U/L (10-49); AST 21 U/L (14-35); Albumin 3.5 g/dL (3.8-4.9); Albumin/Globulin Ratio 1.75 Ratio (1.60-3.17); Alkaline Phosphatase 101 U/L (41-126); BUN/Creat Ratio 14.11 Ratio (12.00-20.00); Blood Urea Nitrogen 12.7 mg/dL (9.0-27.0); Calcium 8.5 mg/dL (8.7-10.3); Carbon Dioxide 26.2 mmol/L (21.6-31.8); Chloride 102 mmol/L (96-109); Glucose 169 mg/dL (70-110); Magnesium 2.3 mg/dL (1.5-2.4); Potassium 4.4 mmol/L (3.5-5.5); Sodium 137 mmol/L (135-145); Total Bilirubin <0.2 mg/dL (0.3-1.2); Total Protein 5.5 g/dL (6.2-8.2)
--- NOTE | 2024-11-12 10:57 | P.PN ---
Subjective Progress Note Date: 11/12/24 SURGICAL PROGRESS NOTE CHIEF COMPLAINT: Infected Port-A-Cath HISTORY OF PRESENT ILLNESS: Patient is status post removal of right subclavian Port-A-Cath. Pain is controlled. Afebrile. We repeat blood culture pending. WBC 10.98 PHYSICAL EXAM: VITAL SIGNS: Reviewed. GENERAL: Well-developed in no acute distress. Extremities: Right shoulder and subclavian area decreased erythema. Packing is in place with serosanguineous drainage noted. ASSESSMENT: 1. Infected right subclavian Port-A-Cath status post removal PLAN: -Remove packing -Okay to shower -Cover wound with gauze or ABD -Antibiotics per ID service -Okay to discharge from surgical standpoint when medically cleared Physician Morgue Keeper note has been reviewed by physician. Signing provider agrees with the documented findings, assessment, and plan of care. Objective - Vital Signs Vital signs: Vital Signs Temp 98.1 F 11/12/24 07:17 Pulse 79 11/12/24 07:17 Resp 16 11/12/24 07:17 BP 135/82 11/12/24 07:17 Pulse Ox 94 L 11/12/24 07:17 FiO2 Intake & Output 11/11/24 11/12/24 11/12/24 18:59 06:59 18:59 Intake Total 1050 1290 Output Total 855 Balance 195 1290 Intake: IV 250 Intake, IV Titration 800 700 Amount Sodium Chloride 0.9% 1, 600 600 000 ml @ 100 mls/hr IV . Q10H [facility] Rx#:[id number] ceFAZolin 3 gm In Sodium 200 100 Chloride 0.9% 100 ml @ 200 mls/hr IVPB Q8HR [facility] Rx#:[id number] Oral 590 Output: Urine 850 Estimated Blood Loss 5 Other: Voiding Method Toilet Toilet # Voids 1 - Labs CBC & Chem 7: 11/12/24 04:28 11/12/24 04:28 Labs: Abnormal Lab Results - Last 24 Hours (Table) 11/11/24 11/11/24 11/11/24 Range/Units 13:41 17:20 20:15 WBC (4.50-10.00) X 10*3/uL RBC (4.40-5.60) X 10*6/uL Hgb (13.0-17.0) g/dL Hct (39.6-50.0) % NRBC/100 WBC Diff (0.00-0.01) X 10*3/uL Glucose (70-110) mg/dL POC Glucose (mg/dL) 137 H 206 H 258 H (70-110) mg/dL Calcium (8.7-10.3) mg/dL Total Bilirubin (0.3-1.2) mg/dL Total Protein (6.2-8.2) g/dL Albumin (3.8-4.9) g/dL 11/12/24 11/12/24 11/12/24 Range/Units 04:28 04:28 07:20 WBC 10.98 H (4.50-10.00) X 10*3/uL RBC 3.96 L (4.40-5.60) X 10*6/uL Hgb 11.4 L (13.0-17.0) g/dL Hct 34.9 L (39.6-50.0) % NRBC/100 WBC Diff 0.02 H (0.00-0.01) X 10*3/uL Glucose 169 H (70-110) mg/dL POC Glucose (mg/dL) 153 H (70-110) mg/dL Calcium 8.5 L (8.7-10.3) mg/dL Total Bilirubin <0.2 L (0.3-1.2) mg/dL Total Protein 5.5 L (6.2-8.2) g/dL Albumin 3.5 L (3.8-4.9) g/dL Microbiology - Last 24 Hours (Table) 11/09/24 11:31 Blood Culture Gram Stain - Preliminary Blood Blood Culture - Preliminary Presumptive Staph aureus Molecular ID
[2024-11-12 12:17] LABS: Glucose,Whole Blood 174 mg/dL (70-110)
--- NOTE | 2024-11-12 12:46 | P.PN ---
Subjective Progress Note Date: 11/12/24 No acute events overnight. Port was removed yesterday. Counts stable. Pt afebrile, continues on IV abx. Repeat culture pending Objective - Vital Signs Vital signs: Vital Signs Temp 98.1 F 11/12/24 07:17 Pulse 79 11/12/24 07:17 Resp 16 11/12/24 07:17 BP 135/82 11/12/24 07:17 Pulse Ox 94 L 11/12/24 07:17 FiO2 Intake & Output 11/11/24 11/12/24 11/12/24 18:59 06:59 18:59 Intake Total 1050 1290 Output Total 855 Balance 195 1290 Intake: IV 250 Intake, IV Titration 800 700 Amount Sodium Chloride 0.9% 1, 600 600 000 ml @ 100 mls/hr IV . Q10H [facility] Rx#:[id number] ceFAZolin 3 gm In Sodium 200 100 Chloride 0.9% 100 ml @ 200 mls/hr IVPB Q8HR [facility] Rx#:[id number] Oral 590 Output: Urine 850 Estimated Blood Loss 5 Other: Voiding Method Toilet Toilet # Voids 1 - Constitutional General appearance: Present: obese - EENT Eyes: Present: anicteric sclerae, EOMI ENT: Present: hearing grossly normal - Respiratory Details: breathing is even and unlabored - Cardiovascular Details: well perfused - Integumentary Integumentary: Absent: cyanotic, jaundiced - Psychiatric Psychiatric: Present: A&O x's 3 - Labs CBC & Chem 7: 11/12/24 04:28 11/12/24 04:28 Labs: Abnormal Lab Results - Last 24 Hours (Table) 11/11/24 11/11/24 11/11/24 Range/Units 13:41 17:20 20:15 WBC (4.50-10.00) X 10*3/uL RBC (4.40-5.60) X 10*6/uL Hgb (13.0-17.0) g/dL Hct (39.6-50.0) % NRBC/100 WBC Diff (0.00-0.01) X 10*3/uL Glucose (70-110) mg/dL POC Glucose (mg/dL) 137 H 206 H 258 H (70-110) mg/dL Calcium (8.7-10.3) mg/dL Total Bilirubin (0.3-1.2) mg/dL Total Protein (6.2-8.2) g/dL Albumin (3.8-4.9) g/dL 11/12/24 11/12/24 11/12/24 Range/Units 04:28 04:28 07:20 WBC 10.98 H (4.50-10.00) X 10*3/uL RBC 3.96 L (4.40-5.60) X 10*6/uL Hgb 11.4 L (13.0-17.0) g/dL Hct 34.9 L (39.6-50.0) % NRBC/100 WBC Diff 0.02 H (0.00-0.01) X 10*3/uL Glucose 169 H (70-110) mg/dL POC Glucose (mg/dL) 153 H (70-110) mg/dL Calcium 8.5 L (8.7-10.3) mg/dL Total Bilirubin <0.2 L (0.3-1.2) mg/dL Total Protein 5.5 L (6.2-8.2) g/dL Albumin 3.5 L (3.8-4.9) g/dL Microbiology - Last 24 Hours (Table) 11/09/24 11:31 Blood Culture Gram Stain - Preliminary Blood Blood Culture - Preliminary Presumptive Staph aureus Molecular ID Assessment and Plan (1) Infected venous access port Current Visit: Yes Status: Acute Priority: High Code(s): T80.219A - UNSP INFECTION DUE TO CENTRAL VENOUS CATHETER, INIT ENCNTR SNOMED Code(s): 88658 3009 (2) MSSA bacteremia Current Visit: Yes Status: Acute Priority: High Code(s): R78.81 - BACTEREMIA; B95.61 - METHICILLIN SUSCEP STAPH INFCT CAUSING DIS CLASSD ELSWHR SNOMED Code(s): 242591938 Plan: Mr. Broussard is a very pleasant 44 yo male with recently diagnosed DLBCL, here for concerns of port infection 1 week after C1 of R-CHOP. CT chest reviewed, fat stranding around port site, and clinically has cellulititis overlying port site. - Culture positive for staph aureus. Repeat blood cultures pending - Continues IV abx. ID following - S/p port removal. Spoke with surgery team, once infection adequately treated will plan to replace port - Fevers now resolved - Monitor CBC. S/p cycle 1 of RCHOP with G-CSF. Blood counts stable, WBC 10.9, hgb 11.4, plt 243,000 Discussed plan with pt and spouse, they were agreeable. All questions answered.
--- NOTE | 2024-11-12 15:42 | P.PN ---
Subjective Progress Note Date: 11/12/24 Principal diagnosis: Reason for follow-up is Mediport infection and bacteremia Patient is a 44-year-old male with a past medical history significant for pneumonia, diabetes mellitus and recently diagnosed with B cell lymphoma for which the patient did have right chest wall Mediport placement on 10/28/2024 patient presented to hospital right chest wall upper shoulder pain concerning for reported cellulitis CT did not show any abscess.Patient is status post removal of the right subclavian Port-A-Cath on 11/11/2024. On today's evaluation that is 11/12/2024, Patient is afebrile this morning patient denies having any chest pain shortness of breath or cough, the patient is currently on room air, patient denies any abdominal pain no diarrhea no nausea no vomiting. Patient white count is 10.98, creatinine 0.9 blood culture from 11/11/2024 came back positive Objective - Vital Signs Vital signs: Vital Signs Temp 97.9 F 11/12/24 11:50 Pulse 86 11/12/24 11:50 Resp 18 11/12/24 11:50 BP 151/93 11/12/24 11:50 Pulse Ox 93 L 11/12/24 11:50 FiO2 Intake & Output 11/11/24 11/12/24 11/12/24 18:59 06:59 18:59 Intake Total 1050 1290 Output Total 855 Balance 195 1290 Intake: IV 250 Intake, IV Titration 800 700 Amount Sodium Chloride 0.9% 1, 600 600 000 ml @ 100 mls/hr IV . Q10H [facility] Rx#:[id number] ceFAZolin 3 gm In Sodium 200 100 Chloride 0.9% 100 ml @ 200 mls/hr IVPB Q8HR [facility] Rx#:[id number] Oral 590 Output: Urine 850 Estimated Blood Loss 5 Other: Voiding Method Toilet Toilet Toilet # Voids 1 - Exam GENERAL DESCRIPTION: Middle-age male lying in bed in no distress RESPIRATORY SYSTEM: Unlabored breathing , decreased breath sounds at bases HEART: S1 S2 regular rate and rhythm , right chest wall is currently dressed postoperatively ABDOMEN: Soft , no tenderness EXTREMITIES: No edema feet - Labs CBC & Chem 7: 11/12/24 04:28 11/12/24 04:28 Labs: Abnormal Lab Results - Last 24 Hours (Table) 11/11/24 11/11/24 11/11/24 Range/Units 13:41 17:20 20:15 WBC (4.50-10.00) X 10*3/uL RBC (4.40-5.60) X 10*6/uL Hgb (13.0-17.0) g/dL Hct (39.6-50.0) % NRBC/100 WBC Diff (0.00-0.01) X 10*3/uL Glucose (70-110) mg/dL POC Glucose (mg/dL) 137 H 206 H 258 H (70-110) mg/dL Calcium (8.7-10.3) mg/dL Total Bilirubin (0.3-1.2) mg/dL Total Protein (6.2-8.2) g/dL Albumin (3.8-4.9) g/dL 11/12/24 11/12/24 11/12/24 Range/Units 04:28 04:28 07:20 WBC 10.98 H (4.50-10.00) X 10*3/uL RBC 3.96 L (4.40-5.60) X 10*6/uL Hgb 11.4 L (13.0-17.0) g/dL Hct 34.9 L (39.6-50.0) % NRBC/100 WBC Diff 0.02 H (0.00-0.01) X 10*3/uL Glucose 169 H (70-110) mg/dL POC Glucose (mg/dL) 153 H (70-110) mg/dL Calcium 8.5 L (8.7-10.3) mg/dL Total Bilirubin <0.2 L (0.3-1.2) mg/dL Total Protein 5.5 L (6.2-8.2) g/dL Albumin 3.5 L (3.8-4.9) g/dL 11/12/24 Range/Units 12:13 WBC (4.50-10.00) X 10*3/uL RBC (4.40-5.60) X 10*6/uL Hgb (13.0-17.0) g/dL Hct (39.6-50.0) % NRBC/100 WBC Diff (0.00-0.01) X 10*3/uL Glucose (70-110) mg/dL POC Glucose (mg/dL) 174 H (70-110) mg/dL Calcium (8.7-10.3) mg/dL Total Bilirubin (0.3-1.2) mg/dL Total Protein (6.2-8.2) g/dL Albumin (3.8-4.9) g/dL Microbiology - Last 24 Hours (Table) 11/11/24 15:43 Blood Culture Gram Stain - Preliminary Blood Assessment and Plan (1) Infected venous access port Current Visit: Yes Status: Acute Priority: High Code(s): T80.219A - UNSP INFECTION DUE TO CENTRAL VENOUS CATHETER, INIT ENCNTR SNOMED Code(s): 556791735 (2) MSSA bacteremia Current Visit: Yes Status: Acute Priority: High Code(s): R78.81 - BACTEREMIA; B95.61 - METHICILLIN SUSCEP STAPH INFCT CAUSING DIS CLASSD ELSWHR SNOMED Code(s): 871784542 Plan: 1patient presented to hospital with pain to the right chest wall as well as the right shoulder area and this patient was recently did have a Mediport placement on 10/28/2024 and apparently has been accessed for blood draw on 11/04/2024 now with worsening pain swelling and redness with abnormal CT concerning for possible port infection will need to cover for resistant gram-positive as well as gram-negative pathogen 2blood cultures came back positive with MSSA source likely port infection 3patient did have removal of the right subclavian Port-A-Cath blood culture repeat on 11/11/2024 also came back positive will repeat blood cultures today continue with the cefazolin Family bedside multiple question answered Dictation was produced using [employer] dictation software. please excuse any g rammatical, word or spelling errors. Time with Patient: Less than 30
--- NOTE | 2024-11-12 16:39 | P.PN ---
Subjective Progress Note Date: 11/12/24 Hospital Course: Patient is a very pleasant 44-year-old male recently diagnosed with B-cell lymphoma and type 2 diabetes mellitus. Patient underwent Chemo-Port placement on 10/28/[address] Brantley and started on chemotherapy by oncologist, Dr. Bernal. He presented to the emergency department today secondary to concerns of redness, swelling, and pain to right anterior chest radiating into right shoulder region. Patient reports he first noticed the symptoms yesterday but were mild and states significantly worsened overnight. He denies having any fevers, chills, diaphoresis, dizziness, lightheadedness, shortness of breath, or experiencing any numbness/tingling/weakness in his right arm. Patient reports pain directly at site of Chemo-Port radiating across to his right anterior chest and into his right shoulder. He denies having any drainage from site. Upon arrival to our facility, patient underwent evaluation in the emergency department. Vital signs upon arrival show blood pressure 154/89, heart rate 94, respiratory rate 18, temp 97.9 F, and SpO2 of 96% on room air. Labs completed and reviewed. CBC unremarkable. Coagulation profile showing a low PTT of 20.8 otherwise normal findings. BMP showing mild prerenal azotemia with BUN of 32 ot herwise normal findings. Blood glucose was elevated at 236. Lactic acid was 1.6. Liver profile unremarkable. Venous Doppler right upper extremity negative for DVT. CT chest showing nonspecific ill-defined fluid and fat stranding surrounding the right Mediport hub concerning for infectious process with no focal fluid collection or abscess identified. Patient admitted to observation unit under our services with consultation to infectious disease and general surgery. Physical exam: Patient seen and fully evaluated at bedside this morning. He was sitting up in chair at bedside visiting with family members. He currently reports pain is controlled and states he has been taking [place] as prescribed for pain management and tolerating well. He currently denies having any other questions, needs, complaints, or concerns at this time. Vital signs reviewed and stable. General: Nontoxic, no distress and appears stated age. Derm: Skin warm and dry, normal coloration for ethnicity. Patient has postoperative dressing and packing in place to right anterior chest status post removal of Mediport Head: Atraumatic, normocephalic and symmetric. Eyes: EOM's intact, no lid lag, and anicteric sclera Mouth: no lip lesions, mucus membranes moist Cardiovascular: regular rate and rhythm with normal S1S2, no murmur, positive posterior tibial pulses bilaterally, and cap refill < 2 seconds. Lungs: Respirations even, regular, and unlabored on room air. Lungs CTA bilaterally, no rhonchi, no rales, no wheezing, and no accessory muscle usage. Abdominal: soft, nontender to palpation, no guarding, no appreciable organomegaly Ext: ROM intact. No gross muscle atrophy, no edema, no contractures Neuro: Speech clear, face symmetrical and CN II-XII grossly intact with no noted focal neuro deficits Psych: Alert and oriented to person, place, time, and situation. Appropriate and pleasant affect. Assessment and Plan of Care: Bacteremia Infected Mediport with surrounding cellulitis -CT chest showing nonspecific ill-defined fluid and fat stranding surrounding the right Mediport hub concerning for infectious process with no focal fluid collection or abscess identified. -Blood culture positive for for MSSA. -Infectious disease following, discussed plan of care with Dr. Schrader. -General Surgery following, took patient for removal of Mediport 11/11/2024. -Follow-up on blood culture, order placed for catheter tip culture if the decision is made by general surgery to remove port -Continue IV antibiotics with cefazolin 3 g every 8 hours. -Symptomatic care and pain management with Tylenol 650 mg every 6 hours as needed for mild pain, [place] 5/325 mg tablets as needed for moderate pain, and Dilaudid 1 mg every 3 hours as needed for severe pain. Type II [id number] diabetes mellitus with hyperglycemia -Continue Farxiga 5 mg daily and patient placed on glycemic protocol with Humalog sliding scale. Hypertension -Monitor vital signs and continue amlodipine 5 mg daily. B-cell lymphoma -Continue to follow-up outpatient with oncology for continued treatment upon discharge. Data and imaging reviewed: Morning labs reviewed. Blood culture finalizing positive for MSSA. CBC showing mild leukocytosis with WBC count of 10.98 and hemoglobin of 11.4 otherwise normal findings. BMP unremarkable. Blood glucose 169. Magnesium 2.3. Liver profile showing a low total protein of 5.5 and albumin of 3.5. Vital signs reviewed. Blood pressure much better controlled since starting on amlodipine, currently 135/82, heart rate 79, respiratory rate 16, temp 98.1 F, and SpO2 of 94% on room air. CODE STATUS: Full code DVT prophylaxis: Lovenox Discussed with: Patient, patient's family at bedside, RN, and infectious disease physician. Anticipated discharge date: Pending clinical course. Anticipated discharge place: Home Patient was seen independently by Nurse Practitioner. This document was prepared using [employer] dictation software. Please allow for errors in cardiology nurse practitioner while rare they do occur. Boris Wong SEWAGE PLANT ATTENDANT rendered care for this patient independently, reviewed the findings and plan as documented in the note above and agree with plan. I did not physically speak with or examine the patient on this date. . Objective - Vital Signs Vital signs: Vital Signs Temp 98.1 F 11/12/24 07:17 Pulse 79 11/12/24 07:17 Resp 16 11/12/24 07:17 BP 135/82 11/12/24 07:17 Pulse Ox 94 L 11/12/24 07:17 FiO2 Intake & Output 11/11/24 11/12/24 11/12/24 18:59 06:59 18:59 Intake Total 1050 1290 Output Total 855 Balance 195 1290 Intake: IV 250 Intake, IV Titration 800 700 Amount Sodium Chloride 0.9% 1, 600 600 000 ml @ 100 mls/hr IV . Q10H [facility] Rx#:[id number] ceFAZolin 3 gm In Sodium 200 100 Chloride 0.9% 100 ml @ 200 mls/hr IVPB Q8HR [facility] Rx#:[id number] Oral 590 Output: Urine 850 Estimated Blood Loss 5 Other: Voiding Method Toilet Toilet # Voids 1 - Labs CBC & Chem 7: 11/12/24 04:28 11/12/24 04:28 Labs: Abnormal Lab Results - Last 24 Hours (Table) 11/11/24 11/11/24 11/11/24 Range/Units 13:41 17:20 20:15 WBC (4.50-10.00) X 10*3/uL RBC (4.40-5.60) X 10*6/uL Hgb (13.0-17.0) g/dL Hct (39.6-50.0) % NRBC/100 WBC Diff (0.00-0.01) X 10*3/uL Glucose (70-110) mg/dL POC Glucose (mg/dL) 137 H 206 H 258 H (70-110) mg/dL Calcium (8.7-10.3) mg/dL Total Bilirubin (0.3-1.2) mg/dL Total Protein (6.2-8.2) g/dL Albumin (3.8-4.9) g/dL 11/12/24 11/12/24 11/12/24 Range/Units 04:28 04:28 07:20 WBC 10.98 H (4.50-10.00) X 10*3/uL RBC 3.96 L (4.40-5.60) X 10*6/uL Hgb 11.4 L (13.0-17.0) g/dL Hct 34.9 L (39.6-50.0) % NRBC/100 WBC Diff 0.02 H (0.00-0.01) X 10*3/uL Glucose 169 H (70-110) mg/dL POC Glucose (mg/dL) 153 H (70-110) mg/dL Calcium 8.5 L (8.7-10.3) mg/dL Total Bilirubin <0.2 L (0.3-1.2) mg/dL Total Protein 5.5 L (6.2-8.2) g/dL Albumin 3.5 L (3.8-4.9) g/dL Microbiology - Last 24 Hours (Table) 11/09/24 11:31 Blood Culture Gram Stain - Preliminary Blood Blood Culture - Preliminary Presumptive Staph aureus Molecular ID
[2024-11-12 17:10] LABS: Glucose,Whole Blood 173 mg/dL (70-110)
[2024-11-12 20:11] LABS: Glucose,Whole Blood 196 mg/dL (70-110)
[2024-11-13 07:05] LABS: Glucose,Whole Blood 145 mg/dL (70-110)
[2024-11-13 08:39] LABS: ALT 32 U/L (10-49); AST 26 U/L (14-35); Albumin 3.5 g/dL (3.8-4.9); Albumin/Globulin Ratio 1.75 Ratio (1.60-3.17); Alkaline Phosphatase 105 U/L (41-126); BUN/Creat Ratio 14.56 Ratio (12.00-20.00); Blood Urea Nitrogen 13.1 mg/dL (9.0-27.0); Calcium 8.4 mg/dL (8.7-10.3); Carbon Dioxide 25.2 mmol/L (21.6-31.8); Chloride 103 mmol/L (96-109); Glucose 119 mg/dL (70-110); Magnesium 2.2 mg/dL (1.5-2.4); Potassium 4.1 mmol/L (3.5-5.5); Sodium 139 mmol/L (135-145); Total Bilirubin <0.2 mg/dL (0.3-1.2); Total Protein 5.5 g/dL (6.2-8.2)
[2024-11-13 09:23] LABS: HCT 36.3 % (39.6-50.0); HGB 11.6 g/dL (13.0-17.0); MCH 28.9 pg (27.0-32.0); MCV 90.3 FL (80.0-97.0); Mean Platelet Volume 9.7 FL (9.5-12.2); NRBC Per 100 WBC 0.03 X 10*3/uL (0.00-0.01); Platelet Count 288 X 10*3/uL (140-440); RBC 4.02 X 10*6/uL (4.40-5.60); RDW 14.1 % (11.5-14.5); WBC 13.91 X 10*3/uL (4.50-10.00)
[2024-11-13] MEDS ORDERED: HYDROcodone/APAP 5-325MG 1 EACH TAB PO PRN (10:24)
--- NOTE | 2024-11-13 10:38 | P.PN ---
Subjective Progress Note Date: 11/13/24 Hospital Course: Patient is a very pleasant 44-year-old male recently diagnosed with B-cell lymphoma and type 2 diabetes mellitus. Patient underwent Chemo-Port placement on 10/28/[address] Brantley and started on chemotherapy by oncologist, Dr. Bernal. He presented to the emergency department today secondary to concerns of redness, swelling, and pain to right anterior chest radiating into right shoulder region. Patient reports he first noticed the symptoms yesterday but were mild and states significantly worsened overnight. He denies having any fevers, chills, diaphoresis, dizziness, lightheadedness, shortness of breath, or experiencing any numbness/tingling/weakness in his right arm. Patient reports pain directly at site of Chemo-Port radiating across to his right anterior chest and into his right shoulder. He denies having any drainage from site. Upon arrival to our facility, patient underwent evaluation in the emergency department. Vital signs upon arrival show blood pressure 154/89, heart rate 94, respiratory rate 18, temp 97.9 F, and SpO2 of 96% on room air. Labs completed and reviewed. CBC unremarkable. Coagulation profile showing a low PTT of 20.8 otherwise normal findings. BMP showing mild prerenal azotemia with BUN of 32 ot herwise normal findings. Blood glucose was elevated at 236. Lactic acid was 1.6. Liver profile unremarkable. Venous Doppler right upper extremity negative for DVT. CT chest showing nonspecific ill-defined fluid and fat stranding surrounding the right Mediport hub concerning for infectious process with no focal fluid collection or abscess identified. Patient admitted to observation unit under our services with consultation to infectious disease and general surgery. Physical exam: Patient seen and fully evaluated at bedside this morning. He was resting in bed reports increased pain in right anterior chest after removal of packing yesterday afternoon and reports today he is experiencing tingling pain down his right arm. Open incision to right anterior chest has dressing in place and upon removal showing mild to moderate swelling and erythema surrounding, no copious drainage from incision site only small amount of serosanguineous drainage. Patient reports Dexter no longer improving pain, but states he does not want pain Dilaudid because he does not like the way it makes him feel. Discussed with patient alternative options and Dexter to be increased to 2 tablets every 6 hours and added on Toradol 15 mg IVP every 6 hours as needed. Vital signs reviewed and stable. General: Nontoxic, no distress and appears stated age. Derm: Skin warm and dry, normal coloration for ethnicity. Patient has postoperative dressing placed right anterior chest, patient with moderate swelling and erythema surrounding open incision industrial hygenist: Atraumatic, normocephalic and symmetric. Eyes: EOM's intact, no lid lag, and anicteric sclera Mouth: no lip lesions, mucus membranes moist Cardiovascular: regular rate and rhythm with normal S1S2, no murmur, positive posterior tibial pulses bilaterally, and cap refill < 2 seconds. Lungs: Respirations even, regular, and unlabored on room air. Lungs CTA bilaterally, no rhonchi, no rales, no wheezing, and no accessory muscle usage. Abdominal: soft, nontender to palpation, no guarding, no appreciable organomegaly Ext: ROM intact. No gross muscle atrophy, no edema, no contractures Neuro: Speech clear, face symmetrical and CN II-XII grossly intact with no noted focal neuro deficits Psych: Alert and oriented to person, place, time, and situation. Appropriate and pleasant affect. Assessment and Plan of Care: MSSA Bacteremia Infected Mediport with surrounding cellulitis -CT chest showing nonspecific ill-defined fluid and fat stranding surrounding the right Mediport hub concerning for infectious process with no focal fluid collection or abscess identified. -Blood culture positive for for MSSA repeat culture obtained 11/11/2024 also showing preliminarily positive for presumptive Staph aureus -Infectious disease following, discussed plan of care with Dr. Schrader. -General Surgery following, took patient for removal of Mediport 11/11/2024 discussed increased pain at bedside with general surgery PA. -Follow-up on repeat blood culture, Gram stain obtained during removal of infected port also showing positive for presumptive Staph aureus -Continue IV antibiotics with cefazolin 3 g every 8 hours. -Symptomatic care and pain management with Tylenol 650 mg every 6 hours as needed for mild pain, Dex[place] 5/325 mg tablets take 2 tablets every 6 hours as needed for moderate pain, and Toradol 15 mg every 6 hours as needed for continu ed pain. -Echocardiogram ordered for MSSA bacteremia to rule out endocarditis. Type II ebb-tdpulnz-qvqbiubff diabetes mellitus with hyperglycemia -Continue Farxiga 5 mg daily and patient placed on glycemic protocol with Humalog sliding scale. Hypertension -Monitor vital signs and continue amlodipine 5 mg daily. B-cell lymphoma -New/oncology following, discussed plan of care with social studies teacher and hematology SOFTWARE SUPPORT SPECIALIST. Patient to continue to follow-up outpatient with oncology for continued treatment upon discharge. Data and imaging reviewed: Morning labs reviewed. Blood culture positive for MSSA and repeat culture obtained 11/11/2024 also resulting preliminarily positive for presumptive Staph aureus. CBC showing leukocytosis with WBC count of 13.91 and hemoglobin of 11.6 otherwise normal findings. BMP unremarkable. Blood glucose 119. Magnesium 2.2. Liver profile showing a low total protein of 5.5 and albumin of 3.5. Vital signs reviewed. Blood pressure 129/87, heart rate 81, respiratory rate 17, temp 97.9 F, and SpO2 of 93% on room air. CODE STATUS: Full code DVT prophylaxis: Lovenox Discussed with: Patient, patient's family at bedside, RN, and infectious disease physician. Anticipated discharge date: Pending clinical course. Anticipated discharge place: Home Patient was seen independently by Nurse Practitioner. This document was prepared using [facility] dictation software. Please allow for errors in extract mixer while rare they do occur. Boris Wong NP rendered care for this patient independently, reviewed the findings and plan as documented in the note above and agree with plan. I did not physically speak with or examine the patient on this date. . Objective - Vital Signs Vital signs: Vital Signs Temp 97.9 F 11/13/24 08:00 Pulse 93 11/13/24 08:00 Resp 17 11/13/24 08:00 BP 129/87 11/13/24 08:00 Pulse Ox 93 L 11/13/24 07:05 FiO2 Intake & Output 11/12/24 11/13/24 11/13/24 18:59 06:59 18:59 Intake Total 440 1080 Balance 440 1080 Intake: Intake, IV Titration 200 Amount ceFAZolin 3 gm In Sodium 200 Chloride 0.9% 100 ml @ 200 mls/hr IVPB Q8HR [facility] Rx#:[id number] Oral 240 1080 Other: Voiding Method Toilet Toilet # Bowel Movements 1 - Labs CBC & Chem 7: 11/13/24 04:42 11/13/24 04:42 Labs: Abnormal Lab Results - Last 24 Hours (Table) 11/12/24 11/12/24 11/12/24 Range/Units 12:13 17:09 20:10 WBC (4.50-10.00) X 10*3/uL RBC (4.40-5.60) X 10*6/uL Hgb (13.0-17.0) g/dL Hct (39.6-50.0) % NRBC/100 WBC Diff (0.00-0.01) X 10*3/uL Glucose (70-110) mg/dL POC Glucose (mg/dL) 174 H 173 H 196 H (70-110) mg/dL Calcium (8.7-10.3) mg/dL Total Bilirubin (0.3-1.2) mg/dL Total Protein (6.2-8.2) g/dL Albumin (3.8-4.9) g/dL 11/13/24 11/13/24 11/13/24 Range/Units 04:42 04:42 07:04 WBC 13.91 H (4.50-10.00) X 10*3/uL RBC 4.02 L (4.40-5.60) X 10*6/uL Hgb 11.6 L (13.0-17.0) g/dL Hct 36.3 L (39.6-50.0) % NRBC/100 WBC Diff 0.03 H (0.00-0.01) X 10*3/uL Glucose 119 H (70-110) mg/dL POC Glucose (mg/dL) 145 H (70-110) mg/dL Calcium 8.4 L (8.7-10.3) mg/dL Total Bilirubin <0.2 L (0.3-1.2) mg/dL Total Protein 5.5 L (6.2-8.2) g/dL Albumin 3.5 L (3.8-4.9) g/dL Microbiology - Last 24 Hours (Table) 11/11/24 15:43 Blood Culture Gram Stain - Preliminary Blood Blood Culture - Preliminary Presumptive Staph aureus 11/11/24 12:36 Gram Stain - Preliminary Other - Other Wound Culture - Preliminary Presumptive Staph aureus 11/09/24 11:31 Blood Culture Gram Stain - Final Blood Blood Culture - Final Staphylococcus aureus Molecular ID
[2024-11-13 12:10] LABS: Glucose,Whole Blood 136 mg/dL (70-110)
--- NOTE | 2024-11-13 13:12 | P.PN ---
Subjective Progress Note Date: 11/13/24 SURGICAL PROGRESS NOTE CHIEF COMPLAINT: Infected Port-A-Cath HISTORY OF PRESENT ILLNESS: Patient is POD#2 status post removal of right subclavian Port-A-Cath. Patient is complaining of pain in the right chest wall and down the right arm. There is a serosanguineous drainage from the wound. Repeat blood cultures positive for presumptive Staph aureus. Repeat blood culture ordered. On antibiotics. Afebrile. WBC 13.91 Dr. Balderas covering for Dr. Brantley PHYSICAL EXAM: VITAL SIGNS: Reviewed. GENERAL: Well-developed in no acute distress. CHEST: Right sided chest wall wound with erythema. Serosanguineous drainage noted from wound. Bed of wound has healthy tissue ASSESSMENT: 1. Infected right subclavian Port-A-Cath status post removal PLAN: -Patient to shower daily. And pack wound with Aquacel silver rope daily and cover with ABD -Antibiotics per ID service Physician Final Canoe Inspector note has been reviewed by physician. Signing provider agrees with the documented findings, assessment, and plan of care. Objective - Vital Signs Vital signs: Vital Signs Temp 97.9 F 11/13/24 08:00 Pulse 93 11/13/24 08:00 Resp 17 11/13/24 08:00 BP 129/87 11/13/24 08:00 Pulse Ox 93 L 11/13/24 07:05 FiO2 Intake & Output 11/12/24 11/13/24 11/13/24 18:59 06:59 18:59 Intake Total 440 1080 Balance 440 1080 Intake: Intake, IV Titration 200 Amount ceFAZolin 3 gm In Sodium 200 Chloride 0.9% 100 ml @ 200 mls/hr IVPB Q8HR [facility] Rx#:[id number] Oral 240 1080 Other: Voiding Method Toilet Toilet Toilet # Bowel Movements 1 - Labs CBC & Chem 7: 11/13/24 04:42 11/13/24 04:42 Labs: Abnormal Lab Results - Last 24 Hours (Table) 11/12/24 11/12/24 11/13/24 Range/Units 17:09 20:10 04:42 WBC 13.91 H (4.50-10.00) X 10*3/uL RBC 4.02 L (4.40-5.60) X 10*6/uL Hgb 11.6 L (13.0-17.0) g/dL Hct 36.3 L (39.6-50.0) % NRBC/100 WBC Diff 0.03 H (0.00-0.01) X 10*3/uL Glucose (70-110) mg/dL POC Glucose (mg/dL) 173 H 196 H (70-110) mg/dL Calcium (8.7-10.3) mg/dL Total Bilirubin (0.3-1.2) mg/dL Total Protein (6.2-8.2) g/dL Albumin (3.8-4.9) g/dL 11/13/24 11/13/24 11/13/24 Range/Units 04:42 07:04 12:09 WBC (4.50-10.00) X 10*3/uL RBC (4.40-5.60) X 10*6/uL Hgb (13.0-17.0) g/dL Hct (39.6-50.0) % NRBC/100 WBC Diff (0.00-0.01) X 10*3/uL Glucose 119 H (70-110) mg/dL POC Glucose (mg/dL) 145 H 136 H (70-110) mg/dL Calcium 8.4 L (8.7-10.3) mg/dL Total Bilirubin <0.2 L (0.3-1.2) mg/dL Total Protein 5.5 L (6.2-8.2) g/dL Albumin 3.5 L (3.8-4.9) g/dL Microbiology - Last 24 Hours (Table) 11/11/24 15:43 Blood Culture Gram Stain - Preliminary Blood Blood Culture - Preliminary Presumptive Staph aureus 11/11/24 12:36 Gram Stain - Preliminary Other - Other Wound Culture - Preliminary Presumptive Staph aureus 11/09/24 11:31 Blood Culture Gram Stain - Final Blood Blood Culture - Final Staphylococcus aureus Molecular ID
[2024-11-13] MEDS: KETOROLAC 15 MG/ML 1 ML VIAL IVP PRN (16:08)
--- NOTE | 2024-11-13 17:01 | CA ---
Transthoracic Echo Report Name: Lino Broussard Age: 44 Gender: M : 1980 Exam Date: 11/13/2024 13:30 Exam Location: [facility] Ht (in): 72 Wt (lb): 360 Ordering Physician: Boris Wong Attending/Referring Phys: Sign Builder Barbi Johansen RDCS Procedure CPT: Indications: MSSA bacteremia, r/o endocardiitis Cardiac Hx: Technical Quality: Technically difficult study Contrast 1: Definity Total Dose (mL): 3 Contrast 2: Total Dose (mL): MEASUREMENTS (Male / Female) Normal Values 2D ECHO LV Diastolic Diameter PLAX 5.5 cm 4.2 - 5.9 / 3.9 - 5.3 cm LV Systolic Diameter PLAX 3.8 cm IVS Diastolic Thickness 1.0 cm 0.6 - 1.0 / 0.6 - 0.9 cm LVPW Diastolic Thickness 1.1 cm 0.6 - 1.0 / 0.6 - 0.9 cm LV Relative Wall Thickness 0.4 LVOT Diameter 2.8 cm LV Diastolic Volume MOD BP 197.9 cm??? 67 - 155 / 56 - 104 cm??? LV Systolic Volume MOD BP 72.3 cm??? 22 - 58 / 19 - 49 cm??? LV Ejection Fraction MOD BP 63.5 % >= 55 % LV Cardiac Index MOD BP 3604.3 cm???/min???m??? LV Diastolic Volume MOD 4C 211.2 cm??? LV Systolic Volume MOD 4C 83.7 cm??? LV Ejection Fraction MOD 4C 60.4 % LV Cardiac Index MOD 4C 3655.6 cm???/min???m??? LV Diastolic Length 4C 9.2 cm LV Systolic Length 4C 7.4 cm LV Diastolic Volume MOD 2C 166.7 cm??? LV Systolic Volume MOD 2C 58.0 cm??? LV Ejection Fraction MOD 2C 65.2 % LV Cardiac Index MOD 2C 3118.7 cm???/min???m??? LV Diastolic Length 2C 8.2 cm LV Systolic Length 2C 6.8 cm LA Volume 62.9 cm??? 18 - 58 / 22 - 52 cm??? LA Volume Index 21.2 cm???/m??? 16 - 28 cm???/m??? Ascending Aorta Diameter 3.5 cm M-MODE LV Diastolic Diameter MM 5.9 cm 4.2 - 5.9 / 3.9 - 5.3 cm LV Systolic Diameter MM 4.0 cm LV Cardiac Index MM Teich 3011.1 cm???/min???m??? IVS Diastolic Thickness MM 1.3 cm 0.6 - 1.0 / 0.6 - 0.9 cm LVPW Diastolic Thickness MM 1.4 cm 0.6 - 1.0 / 0.6 - 0.9 cm LV Relative Wall Thickness MM 0.5 0.24 - 0.42 / 0.22 - 0.42 LV Mass Index MM 126.0 g/m??? 49 - 115 / 43 - 95 g/m??? DOPPLER AV Peak Velocity 146.1 cm/s AV Peak Gradient 8.5 mmHg AV Mean Velocity 106.9 cm/s AV Mean Gradient 5.0 mmHg AV Velocity Time Integral 23.9 cm LVOT Peak Velocity 122.9 cm/s LVOT Peak Gradient 6.0 mmHg LVOT Velocity Time Integral 18.3 cm LVOT Stroke Volume 115.1 cm??? LVOT Stroke Volume Index 42.1 ml/m??? LVOT Cardiac Index 3302.5 cm???/min???m??? AV Area Cont Eq vti 4.8 cm??? AV Area Cont Eq pk 5.3 cm??? MV Area PHT 4.7 cm??? Mitral E Point Velocity 73.1 cm/s Mitral A Point Velocity 58.2 cm/s Mitral E to A Ratio 1.3 MV Deceleration Time 160.7 ms PV Peak Velocity 124.9 cm/s PV Peak Gradient 6.2 mmHg FINDINGS Left Ventricle Left ventricular ejection fraction is estimated at 60 %. Mildly increased left ventricular mass. Mildly increased septal wall thickness. Moderately increased posterior wall thickness. Moderately increased left ventricular diastolic volume. Moderately increased left ventricular systolic volume. Mildly increased left ventricular relative wall thickness. No obvious regional wall motion abnormalities. Right Ventricle Right ventricle not well visualized. Normal right ventricular global systolic function. Unable to estimate the right ventricular systolic pressure. Right Atrium Right atrium not well visualized. Left Atrium Mildly increased left atrial volume. Mitral Valve Structurally normal mitral valve. No mitral stenosis, regurgitation or prolapse. Aortic Valve Trileaflet aortic valve. No aortic valve stenosis or regurgitation. Tricuspid Valve Tricuspid valve not well visualized. No tricuspid stenosis, regurgitation or prolapse. Pulmonic Valve Pulmonic valve not well visualized. No pulmonic stenosis. No pulmonic regurgitation. Pericardium No pericardial effusion. Aorta Normal size aortic root and proximal ascending aorta. CONCLUSIONS Normal LV function Quality of the study is not optimal enough to comment on any vegetation Previewed by: Dr. Chaz Faulkner MD (Electronically Signed) Final Date: 13 November 2024 17:00
[2024-11-13 17:08] LABS: Glucose,Whole Blood 138 mg/dL (70-110)
--- NOTE | 2024-11-13 17:29 | P.PN ---
Subjective Progress Note Date: 11/13/24 No acute events overnight. S/p port removal. Pt reports feeling improved. Counts stable. Pt remains afebrile, continues on IV abx. Repeat preliminary culture positive. Objective - Vital Signs Vital signs: Vital Signs Temp 97.9 F 11/13/24 08:00 Pulse 93 11/13/24 08:00 Resp 17 11/13/24 08:00 BP 129/87 11/13/24 08:00 Pulse Ox 93 L 11/13/24 07:05 FiO2 Intake & Output 11/12/24 11/13/24 11/13/24 18:59 06:59 18:59 Intake Total 440 1080 Balance 440 1080 Intake: Intake, IV Titration 200 Amount ceFAZolin 3 gm In Sodium 200 Chloride 0.9% 100 ml @ 200 mls/hr IVPB Q8HR [facility] Rx#:[id number] Oral 240 1080 Other: Voiding Method Toilet Toilet # Bowel Movements 1 - Constitutional General appearance: Present: no acute distress, obese - EENT Eyes: Present: anicteric sclerae, EOMI ENT: Present: hearing grossly normal - Respiratory Details: breathing is even and unlabored - Cardiovascular Details: skin warm and dry - Integumentary Integumentary Comment(s): mild erythema around port site, no purulent drainage noted - Neurologic Neurologic: Present: CNII-XII intact - Musculoskeletal Musculoskeletal: Present: strength equal bilaterally - Psychiatric Psychiatric: Present: A&O x's 3 - Labs CBC & Chem 7: 11/13/24 04:42 11/13/24 04:42 Labs: Abnormal Lab Results - Last 24 Hours (Table) 11/12/24 11/12/24 11/12/24 Range/Units 12:13 17:09 20:10 WBC (4.50-10.00) X 10*3/uL RBC (4.40-5.60) X 10*6/uL Hgb (13.0-17.0) g/dL Hct (39.6-50.0) % NRBC/100 WBC Diff (0.00-0.01) X 10*3/uL Glucose (70-110) mg/dL POC Glucose (mg/dL) 174 H 173 H 196 H (70-110) mg/dL Calcium (8.7-10.3) mg/dL Total Bilirubin (0.3-1.2) mg/dL Total Protein (6.2-8.2) g/dL Albumin (3.8-4.9) g/dL 11/13/24 11/13/24 11/13/24 Range/Units 04:42 04:42 07:04 WBC 13.91 H (4.50-10.00) X 10*3/uL RBC 4.02 L (4.40-5.60) X 10*6/uL Hgb 11.6 L (13.0-17.0) g/dL Hct 36.3 L (39.6-50.0) % NRBC/100 WBC Diff 0.03 H (0.00-0.01) X 10*3/uL Glucose 119 H (70-110) mg/dL POC Glucose (mg/dL) 145 H (70-110) mg/dL Calcium 8.4 L (8.7-10.3) mg/dL Total Bilirubin <0.2 L (0.3-1.2) mg/dL Total Protein 5.5 L (6.2-8.2) g/dL Albumin 3.5 L (3.8-4.9) g/dL Microbiology - Last 24 Hours (Table) 11/11/24 15:43 Blood Culture Gram Stain - Preliminary Blood Blood Culture - Preliminary Presumptive Staph aureus 11/11/24 12:36 Gram Stain - Preliminary Other - Other Wound Culture - Preliminary Presumptive Staph aureus 11/09/24 11:31 Blood Culture Gram Stain - Final Blood Blood Culture - Final Staphylococcus aureus Molecular ID Assessment and Plan (1) Infected venous access port Current Visit: Yes Status: Acute Priority: High Code(s): T80.219A - UNSP INFECTION DUE TO CENTRAL VENOUS CATHETER, INIT ENCNTR SNOMED Code(s): 289918145 (2) MSSA bacteremia Current Visit: Yes Status: Acute Priority: High Code(s): R78.81 - BACTEREMIA; B95.61 - METHICILLIN SUSCEP STAPH INFCT CAUSING DIS CLASSD ELSWHR SNOMED Code(s): 877305595 Plan: Mr. Broussard is a very pleasant 44 yo male with recently diagnosed DLBCL, here for concerns of port infection 1 week after C1 of R-CHOP. CT chest reviewed, fat stranding around port site, and clinically had cellulitis overlying port site. - Culture positive for staph aureus. Repeat blood cultures preliminary report is positive for staph aureus - Continues IV abx. ID following - S/p port removal. Spoke with surgery team, once infection adequately treated will plan to replace port - Fevers now resolved - Monitor CBC. S/p cycle 1 of RCHOP with G-CSF. Blood counts stable Doctor attests: I performed a history and physical examination of this patient, developed impression and plan of care. Discussed with dictator. I agree with dictators note, documented as a scribe.
--- NOTE | 2024-11-13 17:36 | P.PN ---
Subjective Progress Note Date: 11/13/24 Principal diagnosis: Reason for follow-up is Mediport infection and bacteremia Patient is a 44-year-old male with a past medical history significant for pneumonia, diabetes mellitus and recently diagnosed with B cell lymphoma for which the patient did have right chest wall Mediport placement on 10/28/2024 patient presented to hospital right chest wall upper shoulder pain concerning for reported cellulitis CT did not show any abscess.Patient is status post removal of the right subclavian Port-A-Cath on 11/11/2024. On today's evaluation that is 11/13/2024,the patient denies any fever or any chills, patient is breathing comfortably on room air, the patient denies chest pain shortness of breath and no significant cough, patient denies abdominal pain, no nausea vomiting or diarrhea. Pain to the right shoulder area has decreased in intensity. Patient white count is 13.1, creatinine 0.9 Objective - Vital Signs Vital signs: Vital Signs Temp 97.9 F 11/13/24 08:00 Pulse 93 11/13/24 08:00 Resp 17 11/13/24 08:00 BP 129/87 11/13/24 08:00 Pulse Ox 93 L 11/13/24 07:05 FiO2 Intake & Output 11/12/24 11/13/24 11/13/24 18:59 06:59 18:59 Intake Total 440 1080 Balance 440 1080 Intake: Intake, IV Titration 200 Amount ceFAZolin 3 gm In Sodium 200 Chloride 0.9% 100 ml @ 200 mls/hr IVPB Q8HR [facility] Rx#:[id number] Oral 240 1080 Other: Voiding Method Toilet Toilet Toilet # Bowel Movements 1 - Exam GENERAL DESCRIPTION: Middle-age male lying in bed in no distress RESPIRATORY SYSTEM: Unlabored breathing , decreased breath sounds at bases HEART: S1 S2 regular rate and rhythm , right chest wall is currently dressed postoperatively ABDOMEN: Soft , no tenderness EXTREMITIES: No edema feet - Labs CBC & Chem 7: 11/13/24 04:42 11/13/24 04:42 Labs: Abnormal Lab Results - Last 24 Hours (Table) 11/12/24 11/12/24 11/13/24 Range/Units 17:09 20:10 04:42 WBC 13.91 H (4.50-10.00) X 10*3/uL RBC 4.02 L (4.40-5.60) X 10*6/uL Hgb 11.6 L (13.0-17.0) g/dL Hct 36.3 L (39.6-50.0) % NRBC/100 WBC Diff 0.03 H (0.00-0.01) X 10*3/uL Glucose (70-110) mg/dL POC Glucose (mg/dL) 173 H 196 H (70-110) mg/dL Calcium (8.7-10.3) mg/dL Total Bilirubin (0.3-1.2) mg/dL Total Protein (6.2-8.2) g/dL Albumin (3.8-4.9) g/dL 11/13/24 11/13/24 11/13/24 Range/Units 04:42 07:04 12:09 WBC (4.50-10.00) X 10*3/uL RBC (4.40-5.60) X 10*6/uL Hgb (13.0-17.0) g/dL Hct (39.6-50.0) % NRBC/100 WBC Diff (0.00-0.01) X 10*3/uL Glucose 119 H (70-110) mg/dL POC Glucose (mg/dL) 145 H 136 H (70-110) mg/dL Calcium 8.4 L (8.7-10.3) mg/dL Total Bilirubin <0.2 L (0.3-1.2) mg/dL Total Protein 5.5 L (6.2-8.2) g/dL Albumin 3.5 L (3.8-4.9) g/dL Microbiology - Last 24 Hours (Table) 11/11/24 15:43 Blood Culture Gram Stain - Preliminary Blood Blood Culture - Preliminary Presumptive Staph aureus 11/11/24 12:36 Gram Stain - Preliminary Other - Other Wound Culture - Preliminary Presumptive Staph aureus 11/09/24 11:31 Blood Culture Gram Stain - Final Blood Blood Culture - Final Staphylococcus aureus Molecular ID Assessment and Plan (1) Infected venous access port Current Visit: Yes Status: Acute Priority: High Code(s): T80.219A - UNSP INFECTION DUE TO CENTRAL VENOUS CATHETER, INIT ENCNTR SNOMED Code(s): 967386777 (2) MSSA bacteremia Current Visit: Yes Status: Acute Priority: High Code(s): R78.81 - BACTEREMIA; B95.61 - METHICILLIN SUSCEP STAPH INFCT CAUSING DIS CLASSD ELSWHR SNOMED Code(s): 554707105 Plan: 1patient presented to hospital with pain to the right chest wall as well as the right shoulder area and this patient was recently did have a Mediport placement on 10/28/2024 and apparently has been accessed for blood draw on 11/04/2024 now with worsening pain swelling and redness with abnormal CT concerning for possible port infection will need to cover for resistant gram-positive as well as gram-negative pathogen 2blood cultures came back positive with MSSA source likely port infection 3patient did have removal of the right subclavian Port-A-Cath blood culture repeat on 11/11/2024 also came back positive 4blood culture repeated on 11/12/2024 which are pending so far we will continue with the cefazolin question concern answered Dictation was produced using [employer] dictation software. please excuse any grammatical, word or spelling errors. Time with Patient: Less than 30
[2024-11-13 20:18] LABS: Glucose,Whole Blood 151 mg/dL (70-110)
[2024-11-14 07:12] LABS: Glucose,Whole Blood 134 mg/dL (70-110)
[2024-11-14 08:39] LABS: ALT 33 U/L (10-49); AST 26 U/L (14-35); Albumin 3.4 g/dL (3.8-4.9); Albumin/Globulin Ratio 1.62 Ratio (1.60-3.17); Alkaline Phosphatase 114 U/L (41-126); BUN/Creat Ratio 10.67 Ratio (12.00-20.00); Blood Urea Nitrogen 9.6 mg/dL (9.0-27.0); Calcium 8.5 mg/dL (8.7-10.3); Carbon Dioxide 27.3 mmol/L (21.6-31.8); Chloride 108 mmol/L (96-109); Globulin 2.1 g/dL (1.6-3.3); Glucose 135 mg/dL (70-110); Magnesium 2.2 mg/dL (1.5-2.4); Sodium 146 mmol/L (135-145); Total Bilirubin <0.2 mg/dL (0.3-1.2); Total Protein 5.5 g/dL (6.2-8.2)
[2024-11-14 08:42] LABS: HCT 36.3 % (39.6-50.0); HGB 11.8 g/dL (13.0-17.0); MCH 29.3 pg (27.0-32.0); MCHC 32.5 g/dL (32.0-37.0); MCV 90.1 FL (80.0-97.0); Mean Platelet Volume 9.7 FL (9.5-12.2); NRBC Per 100 WBC 0.03 X 10*3/uL (0.00-0.01); Platelet Count 279 X 10*3/uL (140-440); RBC 4.03 X 10*6/uL (4.40-5.60); WBC 13.19 X 10*3/uL (4.50-10.00)
[2024-11-14 11:53] LABS: Glucose,Whole Blood 109 mg/dL (70-110)
--- NOTE | 2024-11-14 14:29 | P.PN ---
Subjective Progress Note Date: 11/14/24 Principal diagnosis: Reason for follow-up is Mediport infection and bacteremia Patient is a 44-year-old male with a past medical history significant for pneumonia, diabetes mellitus and recently diagnosed with B cell lymphoma for which the patient did have right chest wall Mediport placement on 10/28/2024 patient presented to hospital right chest wall upper shoulder pain concerning for reported cellulitis CT did not show any abscess.Patient is status post removal of the right subclavian Port-A-Cath on 11/11/2024. On today's evaluation that is 11/14/2024,the patient remains to be afebrile, patient is on room air not requiring supplemental oxygen and denies any burak rtness of breath no chest pain or cough.Patient denies having any nausea or vomiting, no abdominal pain and no diarrhea. Patient white count 17.19, creatinine 0.9 blood culture from 11/12/2024 so far n egative Objective - Vital Signs Vital signs: Vital Signs Temp 97.6 F 11/14/24 07:11 Pulse 74 11/14/24 07:11 Resp 14 11/14/24 07:11 BP 155/85 11/14/24 07:11 Pulse Ox 95 11/14/24 07:11 FiO2 Intake & Output 11/13/24 11/14/24 11/14/24 18:59 06:59 18:59 Intake Total 2286 1050 Balance 2286 1050 Intake: Oral 2286 1050 Other: Voiding Method Toilet Toilet Toilet # Voids 1 2 - Exam GENERAL DESCRIPTION: Middle-age male lying in bed in no distress RESPIRATORY SYSTEM: Unlabored breathing , decreased breath sounds at bases HEART: S1 S2 regular rate and rhythm , right chest wall is currently dressed postoperatively ABDOMEN: Soft , no tenderness EXTREMITIES: No edema feet - Labs CBC & Chem 7: 11/14/24 04:11 11/14/24 04:11 Labs: Abnormal Lab Results - Last 24 Hours (Table) 11/13/24 11/13/24 11/13/24 Range/Units 12:09 17:06 20:17 WBC (4.50-10.00) X 10*3/uL RBC (4.40-5.60) X 10*6/uL Hgb (13.0-17.0) g/dL Hct (39.6-50.0) % NRBC/100 WBC Diff (0.00-0.01) X 10*3/uL Sodium (135-145) mmol/L BUN/Creatinine Ratio (12.00-20.00) Ratio Glucose (70-110) mg/dL POC Glucose (mg/dL) 136 H 138 H 151 H (70-110) mg/dL Calcium (8.7-10.3) mg/dL Total Bilirubin (0.3-1.2) mg/dL Total Protein (6.2-8.2) g/dL Albumin (3.8-4.9) g/dL 11/14/24 11/14/24 11/14/24 Range/Units 04:11 04:11 07:11 WBC 13.19 H (4.50-10.00) X 10*3/uL RBC 4.03 L (4.40-5.60) X 10*6/uL Hgb 11.8 L (13.0-17.0) g/dL Hct 36.3 L (39.6-50.0) % NRBC/100 WBC Diff 0.03 H (0.00-0.01) X 10*3/uL Sodium 146 H (135-145) mmol/L BUN/Creatinine Ratio 10.67 L (12.00-20.00) Ratio Glucose 135 H (70-110) mg/dL POC Glucose (mg/dL) 134 H (70-110) mg/dL Calcium 8.5 L (8.7-10.3) mg/dL Total Bilirubin <0.2 L (0.3-1.2) mg/dL Total Protein 5.5 L (6.2-8.2) g/dL Albumin 3.4 L (3.8-4.9) g/dL Microbiology - Last 24 Hours (Table) 11/11/24 12:36 Gram Stain - Final Other - Other Wound Culture - Final Staphylococcus aureus 11/12/24 18:12 Blood Culture - Preliminary Blood 11/11/24 15:43 Blood Culture Gram Stain - Preliminary Blood Blood Culture - Preliminary Presumptive Staph aureus Assessment and Plan (1) Infected venous access port Current Visit: Yes Status: Acute Priority: High Code(s): T80.219A - UNSP INFECTION DUE TO CENTRAL VENOUS CATHETER, INIT ENCNTR SNOMED Code(s): 458784279 (2) MSSA bacteremia Current Visit: Yes Status: Acute Priority: High Code(s): R78.81 - BACTEREMIA; B95.61 - METHICILLIN SUSCEP STAPH INFCT CAUSING DIS CLASSD ELSWHR SNOMED Code(s): 865338933 Plan: 1patient presented to hospital with pain to the right chest wall as well as the right shoulder area and this patient was recently did have a Mediport placement on 10/28/2024 and apparently has been accessed for blood draw on 11/04/2024 now with worsening pain swelling and redness with abnormal CT concerning for possible port infection will need to cover for resistant gram-positive as well as gram-negative pathogen 2blood cultures came back positive with MSSA source likely port infection 3patient did have removal of the right subclavian Port-A-Cath blood culture repeat on 11/11/2024 also came back positive 4blood culture repeated on 11/12/2024 has been negative so far hide remains to be negative at 72 hours patient able to get PICC line or port for outpatient IV antibiotic therapy discussed with the case investigator arrange for outpatient IV cefazolin Dictation was produced using [employer] dictation software. please excuse any grammatical, word or spelling errors. Time with Patient: Less than 30
--- NOTE | 2024-11-14 14:45 | P.PN ---
Subjective Progress Note Date: 11/14/24 Hospital Course: Patient is a very pleasant 44-year-old male recently diagnosed with B-cell lym phoma and type 2 diabetes mellitus. Patient underwent Chemo-Port placement on 10/28/[address] Brantley and started on chemotherapy by oncologist, Dr. Bernal. He presented to the emergency department today secondary to concerns of redness, swelling, and pain to right anterior chest radiating into right shoulder region. Patient reports he first noticed the symptoms yesterday but were mild and state s significantly worsened overnight. He denies having any fevers, chills, diaphoresis, dizziness, lightheadedness, shortness of breath, or experiencing any numbness/tingling/weakness in his right arm. Patient reports pain directly at site of Chemo-Port radiating across to his right anterior chest and into his right shoulder. He denies having any drainage from site. Upon arrival to our facility, patient underwent evaluation in the emergency department. Vital signs upon arrival show blood pressure 154/89, heart rate 94, respiratory rate 18, temp 97.9 F, and SpO2 of 96% on room air. Labs completed and reviewed. CBC unremarkable. Coagulation profile showing a low PTT of 20.8 otherwise normal findings. BMP showing mild prerenal azotemia with BUN of 32 otherwise normal findings. Blood glucose was elevated at 236. Lactic acid was 1.6. Liver profile unremarkable. Venous Doppler right upper extremity negative for DVT. CT chest showing nonspecific ill-defined fluid and fat stranding surrounding the right Mediport hub concerning for infectious process with no focal fluid collection or abscess identified. Patient admitted to observation unit under our services with consultation to infectious disease and general surgery. Blood cultures from 11/09 and 11/11 positive for MSSA, repeat blood cultures from 11/11-preliminary negative, patient continued on cefazolin 3 g every 8 hours per ID. TTE was done and was suboptimal for vegetation evaluation General Surgery following, took patient for removal of Mediport 11/11/2024 Pertinent Imaging: TTE as above, LV function normal Subjective: Complains of right-sided chest tenderness at the site of previous port, overall improved Pertinent positives and negatives as discussed above, a complete review of systems was performed and all other systems are negative. Vitals Signs Reviewed. General: Nontoxic, no distress and appears stated age obese. Derm: Skin warm and dry, normal coloration for ethnicity. Patient has postoper ative dressing placed right anterior chest, clean and dry Head: Atraumatic, normocephalic and symmetric. Eyes: EOM's intact, no lid lag, and anicteric sclera Mouth: no lip lesions, mucus membranes moist Cardiovascular: regular rate and rhythm with normal S1S2, no murmur, positive posterior tibial pulses bilaterally, and cap refill < 2 seconds. Lungs: Respirations even, regular, and unlabored on room air. Lungs CTA bilaterally, no rhonchi, no rales, no wheezing, and no accessory muscle usage. Abdominal: soft, nontender to palpation, no guarding, no appreciable organomegaly Ext: ROM intact. No gross muscle atrophy, no edema, no contractures Neuro: Speech clear, face symmetrical and CN II-XII grossly intact with no noted focal neuro deficits Psych: Alert and oriented to person, place, time, and situation. Appropriate and pleasant affect. Data Reviewed Today: Pertinent Labs: WBC 13.1, hemoglobin 11.8, normal platelet count, sodium 146, potassium 4.0, creatinine 0.9, blood glucose 135, magnesium 2.2 Assessment and Plan:MSSA Bacteremia Infected Mediport with surrounding cellulitis -CT chest showing nonspecific ill-defined fluid and fat stranding surrounding the right Mediport hub concerning for infectious process with no focal fluid collection or abscess identified. -Blood culture positive for for MSSA repeat culture obtained 11/11/2024 also showing preliminarily positive for presumptive Staph aureus -Infectious disease following, discussed plan of care with Dr. Schrader. -General Surgery following, took patient for removal of Mediport 11/11/2024 discussed increased pain at bedside with general surgery PA. -Follow-up on repeat blood culture, Gram stain obtained during removal of infected port also showing positive for presumptive Staph aureus -Continue IV antibiotics with cefazolin 3 g every 8 hours. -cleared by ID to have PICC line -Symptomatic care and pain management with Tylenol 650 mg every 6 hours as needed for mild pain, [place] 5/325 mg tablets take 2 tablets every 6 hours as needed for moderate pain, and Toradol 15 mg every 6 hours as needed for continued pain. -Echocardiogram ordered for MSSA bacteremia to rule out endocarditis.- inconclusive Constipation -Senokot 1 daily, MiraLAX 17 g p.o. daily Type II [id number] diabetes mellitus with hyperglycemia -Continue Farxiga 5 mg daily and patient placed on glycemic protocol with Humalog sliding scale. Hypertension -Monitor vital signs and continue amlodipine 5 mg daily. B-cell lymphoma -New/oncology following, discussed plan of care with epic ambulatory specialists and hematology PARTS TECHNICIAN. Patient to continue to follow-up outpatient with oncology for continued treatment upon discharge. CODE STATUS: Full code DVT prophylaxis: Lovenox Anticipated discharge date: Pending clinical course. Anticipated discharge place: Home Objective - Vital Signs Vital signs: Vital Signs Temp 97.8 F 11/14/24 11:53 Pulse 79 11/14/24 11:53 Resp 18 11/14/24 11:53 BP 133/87 11/14/24 11:53 Pulse Ox 92 L 11/14/24 11:53 FiO2 Intake & Output 11/13/24 11/14/24 11/14/24 18:59 06:59 18:59 Intake Total 2286 1050 Balance 2286 1050 Intake: Oral 2286 1050 Other: Voiding Method Toilet Toilet Toilet # Voids 1 2 - Labs CBC & Chem 7: 11/14/24 04:11 11/14/24 04:11 Labs: Abnormal Lab Results - Last 24 Hours (Table) 11/13/24 11/13/24 11/14/24 Range/Units 17:06 20:17 04:11 WBC 13.19 H (4.50-10.00) X 10*3/uL RBC 4.03 L (4.40-5.60) X 10*6/uL Hgb 11.8 L (13.0-17.0) g/dL Hct 36.3 L (39.6-50.0) % NRBC/100 WBC Diff 0.03 H (0.00-0.01) X 10*3/uL Sodium (135-145) mmol/L BUN/Creatinine Ratio (12.00-20.00) Ratio Glucose (70-110) mg/dL POC Glucose (mg/dL) 138 H 151 H (70-110) mg/dL Calcium (8.7-10.3) mg/dL Total Bilirubin (0.3-1.2) mg/dL Total Protein (6.2-8.2) g/dL Albumin (3.8-4.9) g/dL 11/14/24 11/14/24 Range/Units 04:11 07:11 WBC (4.50-10.00) X 10*3/uL RBC (4.40-5.60) X 10*6/uL Hgb (13.0-17.0) g/dL Hct (39.6-50.0) % NRBC/100 WBC Diff (0.00-0.01) X 10*3/uL Sodium 146 H (135-145) mmol/L BUN/Creatinine Ratio 10.67 L (12.00-20.00) Ratio Glucose 135 H (70-110) mg/dL POC Glucose (mg/dL) 134 H (70-110) mg/dL Calcium 8.5 L (8.7-10.3) mg/dL Total Bilirubin <0.2 L (0.3-1.2) mg/dL Total Protein 5.5 L (6.2-8.2) g/dL Albumin 3.4 L (3.8-4.9) g/dL Microbiology - Last 24 Hours (Table) 11/11/24 12:36 Anaerobic Culture - Preliminary Other - Other 11/11/24 12:36 Gram Stain - Final Other - Other Wound Culture - Final Staphylococcus aureus 11/12/24 18:12 Blood Culture - Preliminary Blood
[2024-11-14] MEDS: polyethylene glycoL 3350 17 GM POWD.PACK PO SCH (15:35)
[2024-11-14] MEDS: SENNOSIDES-DOCUSATE SODIUM 1 EACH TAB PO SCH (15:35)
[2024-11-14 17:01] LABS: Glucose,Whole Blood 124 mg/dL (70-110)
--- NOTE | 2024-11-14 17:32 | P.PN ---
Subjective Progress Note Date: 11/14/24 Principal diagnosis: Infected Port-A-Cath Patient doing well today. Mild soreness at the Port-A-Cath removal site. Recent blood cultures negative. He is afebrile. Objective - Vital Signs Vital signs: Vital Signs Temp 97.8 F 11/14/24 11:53 Pulse 79 11/14/24 11:53 Resp 18 11/14/24 11:53 BP 133/87 11/14/24 11:53 Pulse Ox 92 L 11/14/24 11:53 FiO2 Intake & Output 11/13/24 11/14/24 11/14/24 18:59 06:59 18:59 Intake Total 2286 1050 Balance 2286 1050 Intake: Oral 2286 1050 Other: Voiding Method Toilet Toilet Toilet # Voids 1 2 - Exam Port-A-Cath incision clean and dry, minimal erythema, minimal tenderness - Labs CBC & Chem 7: 11/14/24 04:11 11/14/24 04:11 Labs: Abnormal Lab Results - Last 24 Hours (Table) 11/13/24 11/14/24 11/14/24 Range/Units 20:17 04:11 04:11 WBC 13.19 H (4.50-10.00) X 10*3/uL RBC 4.03 L (4.40-5.60) X 10*6/uL Hgb 11.8 L (13.0-17.0) g/dL Hct 36.3 L (39.6-50.0) % NRBC/100 WBC Diff 0.03 H (0.00-0.01) X 10*3/uL Sodium 146 H (135-145) mmol/L BUN/Creatinine Ratio 10.67 L (12.00-20.00) Ratio Glucose 135 H (70-110) mg/dL POC Glucose (mg/dL) 151 H (70-110) mg/dL Calcium 8.5 L (8.7-10.3) mg/dL Total Bilirubin <0.2 L (0.3-1.2) mg/dL Total Protein 5.5 L (6.2-8.2) g/dL Albumin 3.4 L (3.8-4.9) g/dL 11/14/24 11/14/24 Range/Units 07:11 17:00 WBC (4.50-10.00) X 10*3/uL RBC (4.40-5.60) X 10*6/uL Hgb (13.0-17.0) g/dL Hct (39.6-50.0) % NRBC/100 WBC Diff (0.00-0.01) X 10*3/uL Sodium (135-145) mmol/L BUN/Creatinine Ratio (12.00-20.00) Ratio Glucose (70-110) mg/dL POC Glucose (mg/dL) 134 H 124 H (70-110) mg/dL Calcium (8.7-10.3) mg/dL Total Bilirubin (0.3-1.2) mg/dL Total Protein (6.2-8.2) g/dL Albumin (3.8-4.9) g/dL Microbiology - Last 24 Hours (Table) 11/11/24 15:43 Blood Culture Gram Stain - Final Blood Blood Culture - Final Staphylococcus aureus 11/11/24 12:36 Anaerobic Culture - Preliminary Other - Other 11/11/24 12:36 Gram Stain - Final Other - Other Wound Culture - Final Staphylococcus aureus 11/12/24 18:12 Blood Culture - Preliminary Blood Assessment and Plan (1) Infected venous access port Narrative/Plan: Patient doing well after Port-A-Cath removal. Recent blood cultures negative. Continue antibiotics. Continue local wound care with Aquacel silver every 1 to 2 days. Will sign off. Please reconsult if needed. Current Visit: Yes Status: Acute Priority: High Code(s): T80.219A - UNSP INFECTION DUE TO CENTRAL VENOUS CATHETER, INIT ENCNTR SNOMED Code(s): 473 [id number]
[2024-11-14 20:27] LABS: Glucose,Whole Blood 179 mg/dL (70-110)
[2024-11-15] MEDS: HYDROcodone/APAP 10-325MG 1 EACH TAB PO PRN (04:39)
[2024-11-15 04:58] LABS: African American GFR (CKD) >90 (>60 ml/min/1.73 sqM); Anion Gap 0 mmol/L; Blood Urea Nitrogen 15 mg/dL (9-20); Calcium 8.5 mg/dL (8.4-10.2); Carbon Dioxide 26 mmol/L (22-30); Chloride 103 mmol/L (98-107); Glucose 146 mg/dL (74-99); Non-African American GFR(CKD) >90 (>60 ml/min/1.73 sqM); Potassium 4.2 mmol/L (3.5-5.1); Sodium 129 mmol/L (137-145)
[2024-11-15 05:36] LABS: Basophils # (A) 0.1 k/uL (0-0.2); Basophils % (A) 0 %; Eosinophils # (A) 0.1 k/uL (0-0.7); Eosinophils % (A) 1 %; HCT 38.2 % (39.0-53.0); HGB 12.2 gm/dL (13.0-17.5); Lymphocytes # (A) 1.3 k/uL (1.0-4.8); Lymphocytes % (A) 11 %; MCH 28.3 pg (25.0-35.0); MCV 88.4 fL (80.0-100.0); Mean Platelet Volume 8.1; Monocytes # (A) 0.6 k/uL (0-1.0); Monocytes % (A) 5 %; Neutrophils # (A) 9.6 k/uL (1.3-7.7); Platelet Count 271 k/uL (150-450); RBC 4.33 m/uL (4.30-5.90); RDW 13.9 % (11.5-15.5); WBC 11.9 k/uL (3.8-10.6)
[2024-11-15 06:51] LABS: Band Neutrophils % 20 %; Eosinophils # (M) 0.12 k/uL (0-0.7); Lymphocytes # (M) 1.31 k/uL (1.0-4.8); Metamyelocytes # (M) 0.24 k/uL (0); Metamyelocytes % 2 %; Neutrophils % (M) 62 %; Nucleated Red Blood Cells 0 /100 WBC (0-0); Total Cells Counted 200
[2024-11-15 07:25] LABS: Glucose,Whole Blood 155 mg/dL (70-110)
[2024-11-15 07:50] VITALS: RESP 18
[2024-11-15 12:25] LABS: Glucose,Whole Blood 153 mg/dL (70-110)
[2024-11-15 13:14] VITALS: BMI 48.8
[2024-11-15 13:15] VITALS: BP 148/83; PULSE 81; TEMP 97.5
--- NOTE | 2024-11-15 15:17 | P.PN ---
Subjective Progress Note Date: 11/15/24 Principal diagnosis: Reason for follow-up is Mediport infection and bacteremia Patient is a 44-year-old male with a past medical history significant for pneumonia, diabetes mellitus and recently diagnosed with B cell lymphoma for which the patient did have right chest wall Mediport placement on 10/28/2024 patient presented to hospital right chest wall upper shoulder pain concerning for reported cellulitis CT did not show any abscess.Patient is status post removal of the right subclavian Port-A-Cath on 11/11/2024. On today's evaluation that is 11/15/2024, the patient continues to be afebrile, the patient is on room air and breathing comfortably, the Pt denies having any chest pain or cough, the patient denies having any abdominal pain no vomiting or any diarrhea, feeling better wants to go home. Patient white count is 11.8, creatinine 0.76 blood culture from 11/12/2024 so far negative Objective - Vital Signs Vital signs: Vital Signs Temp 98.2 F 11/15/24 07:11 Pulse 80 11/15/24 07:11 Resp 18 11/15/24 07:11 BP 132/81 11/15/24 07:11 Pulse Ox 92 L 11/15/24 07:11 FiO2 Intake & Output 11/14/24 11/15/24 11/15/24 18:59 06:59 18:59 Intake Total 1440 Balance 1440 Intake: Oral 1440 Other: Voiding Method Toilet Toilet Toilet # Voids 3 3 # Bowel Movements 2 - Exam GENERAL DESCRIPTION: Middle-age male lying in bed in no distress RESPIRATORY SYSTEM: Unlabored breathing , decreased breath sounds at bases HEART: S1 S2 regular rate and rhythm , right chest wall is currently dressed po stoperatively ABDOMEN: Soft , no tenderness EXTREMITIES: No edema feet - Labs CBC & Chem 7: 11/15/24 04:22 11/15/24 04:22 Labs: Abnormal Lab Results - Last 24 Hours (Table) 11/14/24 11/14/24 11/15/24 Range/Units 17:00 20:18 04:22 WBC 11.9 H (3.8-10.6) k/uL Hgb 12.2 L (13.0-17.5) gm/dL Hct 38.2 L (39.0-53.0) % Neutrophils # 9.6 H (1.3-7.7) k/uL Neutrophils # (Manual) 9.70 H (1.3-7.7) k/uL Metamyelocytes # (Man) 0.24 H (0) k/uL Sodium (137-145) mmol/L Glucose (74-99) mg/dL POC Glucose (mg/dL) 124 H 179 H (70-110) mg/dL 11/15/24 11/15/24 Range/Units 04:22 07:14 WBC (3.8-10.6) k/uL Hgb (13.0-17.5) gm/dL Hct (39.0-53.0) % Neutrophils # (1.3-7.7) k/uL Neutrophils # (Manual) (1.3-7.7) k/uL Metamyelocytes # (Man) (0) k/uL Sodium 129 L (137-145) mmol/L Glucose 146 H (74-99) mg/dL POC Glucose (mg/dL) 155 H (70-110) mg/dL Microbiology - Last 24 Hours (Table) 11/12/24 18:12 Blood Culture - Preliminary Blood 11/11/24 15:43 Blood Culture Gram Stain - Final Blood Blood Culture - Final Staphylococcus aureus 11/11/24 12:36 Anaerobic Culture - Preliminary Other - Other 11/11/24 12:36 Gram Stain - Final Other - Other Wound Culture - Final Staphylococcus aureus Assessment and Plan (1) Infected venous access port Current Visit: Yes Status: Acute Priority: High Code(s): T80.219A - UNSP INFECTION DUE TO CENTRAL VENOUS CATHETER, INIT ENCNTR SNOMED Code(s): 300755635 (2) MSSA bacteremia Current Visit: Yes Status: Acute Priority: High Code(s): R78.81 - BACTEREMIA; B95.61 - METHICILLIN SUSCEP STAPH INFCT CAUSING DIS CLASSD ELSWHR SNOMED Code(s): 784824170 Plan: 1patient presented to hospital with pain to the right chest wall as well as the right shoulder area and this patient was recently did have a Mediport placement on 10/28/2024 and apparently has been accessed for blood draw on 11/04/2024 now with worsening pain swelling and redness with abnormal CT concerning for possible port infection will need to cover for resistant gram-positive as well as gram-negative pathogen 2blood cultures came back positive with MSSA source likely port infection 3patient did have removal of the right subclavian Port-A-Cath blood culture repeat on 11/11/2024 also came back positive 4blood culture repeated on 11/12/2024 has been negative, patient has been cleared for PICC line placement this morning afterwards he can get a dose of daptomycin and go home and continue with the cefazolin in the outpatient setting which has already been arranged this was discussed in detail with the nursing staff Dictation was produced using [employer] dictation software. please excuse any grammatical, word or spelling errors.
--- NOTE | 2024-11-15 15:24 | P.DS ---
Providers Date of admission: 11/10/24 12:40 Attending physician: Fatmata Cline MD Consults: 11/09/24 11:32 Consult Physician Routine Consulting Provider: Dax Bernal Consult Reason/Comments: oncological care Do you want consulting provider notified?: Yes Consult Physician Urgent Consulting Provider: Megan Schrader Consult Reason/Comments: port infection Do you want consulting provider notified?: Yes 11/14/24 13:10 Consult Physician Routine Consulting Provider: Irene Arzate Consult Reason/Comments: Double Lumen PICC insurtion Do you want consulting provider notified?: Yes Primary care physician: Racheal King DO Hospital Course: Discharge Diagnosis: Infected Mediport with surrounding cellulitis Constipation Type II end-unceqmu-comsanytp diabetes mellitus Hypertension B-cell lymphoma Hospital Course: Patient is a very pleasant 44-year-old male recently diagnosed with B-cell lymphoma and type 2 diabetes mellitus. Patient underwent Chemo-Port placement on 10/28/[address] Brantley and started on chemotherapy by oncologist, Dr. Bernal. He presented to the emergency department today secondary to concerns of redness, swelling, and pain to right anterior chest radiating into right shoulder region. Patient reports he first noticed the symptoms yesterday but were mild and states significantly worsened overnight. He denies having any fevers, chills, diaphoresis, dizziness, lightheadedness, shortness of breath, or experiencing any numbness/tingling/weakness in his right arm. Patient reports pain directly at site of Chemo-Port radiating across to his right anterior chest and into his right shoulder. He denies having any drainage from site. Upon arrival to our facility, patient underwent evaluation in the emergency department. Vital signs upon arrival show blood pressure 154/89, heart rate 94, respiratory rate 18, temp 97.9 F, and SpO2 of 96% on room air. Labs completed and reviewed. CBC unremarkable. Coagulation profile showing a low PTT of 20.8 otherwise normal findings. BMP showing mild prerenal azotemia with BUN of 32 otherwise normal findings. Blood glucose was elevated at 236. Lactic acid was 1.6. Liver profile unremarkable. Venous Doppler right upper extremity negative for DVT. CT chest showing nonspecific ill-defined fluid and fat stranding surrounding the right Mediport hub concerning for infectious process with no focal fluid collection or abscess identified. Patient admitted to observation unit under our services with consultation to infectious disease and general surgery.General Surgery following, took patient for removal of Mediport 11/11/2024 Blood cultures from 11/09 and 11/11 positive for MSSA, repeat blood cultures from 11/11-preliminary negative, patient continued on cefazolin 3 g every 8 hours per ID. Echocardiogram ordered for MSSA bacteremia to rule out endocarditis.- inconclusive, discussed with ID, no need to proceed with ONOFRE as source of infection is known, repeat blood cultures preliminary negative Patient is cleared for discharge medically, antibiotics sent by ID, PICC line in place 11/15 Patient to follow-up with primary care physician, ID, heme-onc Patient seen and examined at bedside Vital signs reviewed and stable. General: Nontoxic, no distress and appears stated age obese. Derm: Skin warm and dry, normal coloration for ethnicity. Patient has postoperative dressing placed right anterior chest, clean and dry Head: Atraumatic, normocephalic and symmetric. Eyes: EOM's intact, no lid lag, and anicteric sclera Mouth: no lip lesions, mucus membranes moist Cardiovascular: regular rate and rhythm with normal S1S2, no murmur, positive posterior tibial pulses bilaterally, and cap refill < 2 seconds. Lungs: Respirations even, regular, and unlabored on room air. Lungs CTA bilater ally, no rhonchi, no rales, no wheezing, and no accessory muscle usage. Abdominal: soft, nontender to palpation, no guarding, no appreciable organomegaly Ext: ROM intact. No gross muscle atrophy, no edema, no contractures Neuro: Speech clear, face symmetrical and CN II-XII grossly intact with no noted focal neuro deficits Psych: Alert and oriented to person, place, time, and situation. Appropriate and pleasant affect. A total of 40 minutes of time were spent preparing this complex discharge summary. Patient was discharged on 11/15. Plan - Discharge Summary Discharge Rx Participant: No New Discharge Prescriptions: New HYDROcodone/APAP 10-325MG [[place] 10-325] 1 each PO Q6HR PRN #12 tab PRN Reason: Pain ceFAZolin [Kefzol] 3 gm IVP Q8HR #42 each amLODIPine [Norvasc] 5 mg PO DAILY #30 tab Continue predniSONE [Deltasone] 100 mg PO DIRECTED Aprepitant [Emend] 80 mg PO DIRECTED Loratadine [Claritin] 10 mg PO DAILY Omeprazole [PriLOSEC] 20 mg PO DAILY OLANZapine [ZyPREXA] 2.5 mg PO DIRECTED Ondansetron [Zofran] 4 mg PO Q4H PRN PRN Reason: Nausea Empagliflozin [Jardiance] 10 mg PO DIRECTED Loperamide HCl [Imodium A-D] 4 mg PO QID PRN PRN Reason: Loose Stool Discharge Medication List Aprepitant [Emend] 80 mg PO DIRECTED 11/09/24 [History] Empagliflozin [Jardiance] 10 mg PO DIRECTED 11/09/24 [History] Loperamide HCl [Imodium A-D] 4 mg PO QID PRN 11/09/24 [History] Loratadine [Claritin] 10 mg PO DAILY 11/09/24 [History] OLANZapine [ZyPREXA] 2.5 mg PO DIRECTED 11/09/24 [History] Omeprazole [PriLOSEC] 20 mg PO DAILY 11/09/24 [History] Ondansetron [Zofran] 4 mg PO Q4H PRN 11/09/24 [History] predniSONE [Deltasone] 100 mg PO DIRECTED 11/09/24 [History] HYDROcodone/APAP 10-325MG [[place] 10-325] 1 each PO Q6HR PRN #12 tab 11/15/24 [Rx] amLODIPine [Norvasc] 5 mg PO DAILY #30 tab 11/15/24 [Rx] ceFAZolin [Kefzol] 3 gm IVP Q8HR #42 each 11/15/24 [Rx] Follow up Appointment(s)/Referral(s): Racheal King DO [Primary Care Provider] - 1-2 days Megan Schrader MD [STAFF PHYSICIAN] - 1 Week Ned Brantley MD [STAFF PHYSICIAN] - 1 Week Patient Instructions/Handouts: How to Care for Your PICC (Peripherally Inserted Central Catheter) (GEN) Activity/Diet/Wound Care/Special Instructions: Please, follow-up with your primary care physician, heme-onc, infectious disease, vascular surgery Monitor your blood pressure, keep a log of the readings to discuss with your primary care physician Discharge Disposition: HOME WITH HOME HEALTH SERVICES
--- NOTE | 2024-11-15 18:02 | P.PN ---
Subjective Progress Note Date: 11/15/24 No acute events overnight. S/p port removal. Pt reports feeling improved. Counts stable. Pt remains afebrile, continues on IV abx. Repeat blood culture negative at 48 hours. Planning for picc line placement to be discharged on IV abx Objective - Vital Signs Vital signs: Vital Signs Temp 97.5 F L 11/15/24 13:13 Pulse 81 11/15/24 13:13 Resp 18 11/15/24 13:13 BP 148/83 11/15/24 13:13 Pulse Ox 94 L 11/15/24 13:13 FiO2 Intake & Output 11/14/24 11/15/24 11/15/24 18:59 06:59 18:59 Intake Total 1440 Balance 1440 Weight 163.293 kg Intake: Oral 1440 Other: Voiding Method Toilet Toilet Toilet # Voids 3 3 # Bowel Movements 2 - Constitutional General appearance: Present: no acute distress - EENT Eyes: Present: anicteric sclerae, EOMI ENT: Present: hearing grossly normal - Respiratory Details: breathing is even and unlabored - Cardiovascular Details: skin warm and dry - Integumentary Integumentary: Absent: cyanotic, jaundiced - Neurologic Neurologic: Present: CNII-XII intact - Musculoskeletal Musculoskeletal: Present: strength equal bilaterally - Psychiatric Psychiatric: Present: A&O x's 3 - Labs CBC & Chem 7: 11/15/24 04:22 11/15/24 04:22 Labs: Abnormal Lab Results - Last 24 Hours (Table) 11/14/24 11/14/24 11/15/24 Range/Units 17:00 20:18 04:22 WBC 11.9 H (3.8-10.6) k/uL Hgb 12.2 L (13.0-17.5) gm/dL Hct 38.2 L (39.0-53.0) % Neutrophils # 9.6 H (1.3-7.7) k/uL Neutrophils # (Manual) 9.70 H (1.3-7.7) k/uL Metamyelocytes # (Man) 0.24 H (0) k/uL Sodium (137-145) mmol/L Glucose (74-99) mg/dL POC Glucose (mg/dL) 124 H 179 H (70-110) mg/dL 11/15/24 11/15/24 11/15/24 Range/Units 04:22 07:14 12:21 WBC (3.8-10.6) k/uL Hgb (13.0-17.5) gm/dL Hct (39.0-53.0) % Neutrophils # (1.3-7.7) k/uL Neutrophils # (Manual) (1.3-7.7) k/uL Metamyelocytes # (Man) (0) k/uL Sodium 129 L (137-145) mmol/L Glucose 146 H (74-99) mg/dL POC Glucose (mg/dL) 155 H 153 H (70-110) mg/dL Microbiology - Last 24 Hours (Table) 11/12/24 18:12 Blood Culture - Preliminary Blood 11/11/24 15:43 Blood Culture Gram Stain - Final Blood Blood Culture - Final Staphylococcus aureus 11/11/24 12:36 Anaerobic Culture - Preliminary Other - Other Assessment and Plan (1) Infected venous access port Status: Acute Priority: High Code(s): T80.219A - UNSP INFECTION DUE TO CENTRAL VENOUS CATHETER, INIT ENCNTR SNOMED Code(s): 908268202 (2) MSSA bacteremia Status: Acute Priority: High Code(s): R78.81 - BACTEREMIA; B95.61 - METHICILLIN SUSCEP STAPH INFCT CAUSING DIS CLASSD ELSWHR SNOMED Code(s): 051743606 Plan: Mr. Broussard is a very pleasant 44 yo male with recently diagnosed DLBCL, here for concerns of port infection 1 week after C1 of R-CHOP. CT chest reviewed, fat stranding around port site, and clinically had cellulitis overlying port site. - Cultures positive for staph aureus. Repeat cultures negative at 48 hours - Continues IV abx. ID following - S/p port removal. Spoke with surgery team, once infection adequately treated will plan to replace port - Fevers now resolved - S/p cycle 1 of RCHOP with G-CSF. Blood counts stable - Plan is for picc line, and to be discharged home on IV abx per ID recs. Treatment will be on hold until abx are completed
--- NOTE | 2024-11-20 10:56 | CDI ---
Documentation Clarification Form Date: 11/20/2024 10:31:33 AM From: Day Zavala RN, CCDS Email: [email or web address] Admit Date: 11/10/2024 12:40:00 PM Patient Name: Lino Broussard Visit Number: [id number] Discharge Date: 11/15/2024 05:46:00 PM ATTENTION: The Clinical Documentation Specialists (CDI) and [facility] Coding Staff appreciate your assistance in clarifying documentation. Please respond to the clarification below the line at the bottom and electronically sign. The CDI & [facility] Coding staff will review the response and follow-up if needed. Please note: Queries are made part of the Legal Health Record. If you have any questions, please contact the author of this message via ITS. Doctor Fatmata Cline There is documentation of bacteremia in the progress notes. Bacteremia is considered a lab finding. Additional clarification regarding bacteremia is requested. Patient history/risk factors: DM, recently diagnosed with B cell lymphoma with right chest wall Mediport placement on 10/28. Admitted with Bacteremia and infected Mediport. Clinical Indicators: 11/09-11/15 WBC: 8.1-2.70-3.95-13.91-11.9 11/09 Blood Culture: Staph aureus 11/11 Blood Culture: Staph aureus 11/09 Temp 102.1 HR 134 11/09 ID Consult: "worsening pain swelling and redness with abnormal CT concerning for possible port infection, will need to cover for resistant gram- positive as well as gram-negative pathogen." 11/10 IM: "Patient initially admitted under observation status, however secondary to positive blood cultures patient will require admission to inpatient at this time secondary to need for removal of Mediport and continued IV antibiotics for treatment of his bacteremia." 11/10 ID: "Patient did spike a fever last night of 102 F, however is afebrile this morning. Infected venous access port. MSSA bacteremia." Treatment: Removal of Mediport on 11/11 Antibiotics: IV Cefazolin 2gm x1 on 11/09; IV Cefazolin 3gm Q8H 11/10-11/15; IV Cefepime 2gm Q8H 11/09-11/10; IV Daptomycin 700mg x1 on 11/15; IV Vancomycin 2250 mg x1 on 11/09; IV Vancomycin 2250 mg Q8H 11/09-11/10 Please provide additional clarification regarding the etiology/cause and/or clinical significance of the Bacteremia: [ x ] MSSA Bacteremia due to Sepsis from infected Mediport [ ] MSSA Bacteremia due to infected Mediport with no Sepsis [ ] Other, please specify [ ] Unable to determine MTDD
== END 2024-11-15 17:46 | disposition home health service (06) | DRG 314 ==
LOC: EC 08:28 → 5NMEDONC 11:33 → OBSVTOIN 11-10 12:40 → 5NMEDONC 11-13 09:49
PROVIDERS: ADMIT Internal Medicine; ATTEND Internal Medicine
PROC: 0JPT0WZ Removal of Totally Implantable Vascular Access Device from Trunk Subcutaneous Tissue and Fascia, Open Approach (ICD-10-PCS; principal; 2024-11-11 08:15)
PROC: 02HV33Z Insertion of Infusion Device into Superior Vena Cava, Percutaneous Approach (ICD-10-PCS; 2024-11-15)
PROC: B5181ZA Fluoroscopy of Superior Vena Cava using Low Osmolar Contrast, Guidance (ICD-10-PCS; 2024-11-15)
PROC: B548ZZA Ultrasonography of Superior Vena Cava, Guidance (ICD-10-PCS; 2024-11-15)
DX: T80.211A Bloodstream infection due to central venous catheter, initial encounter (principal); A41.01 Sepsis due to Methicillin susceptible Staphylococcus aureus; C83.30 Diffuse large B-cell lymphoma, unspecified site; R13.10 Dysphagia, unspecified; B95.61 Methicillin susceptible Staphylococcus aureus infection as the cause of diseases classified elsewhere; E11.65 Type 2 diabetes mellitus with hyperglycemia; I10 Essential (primary) hypertension; L03.313 Cellulitis of chest wall; Z87.891 Personal history of nicotine dependence; K02.9 Dental caries, unspecified; K59.00 Constipation, unspecified; Z80.0 Family history of malignant neoplasm of digestive organs; Z79.84 Long term (current) use of oral hypoglycemic drugs; Z87.442 Personal history of urinary calculi; Z91.048 Other nonmedicinal substance allergy status; Y84.8 Other medical procedures as the cause of abnormal reaction of the patient, or of later complication, without mention of misadventure at the time of the procedure
CPT/HCPCS: 36415; 36573; 71260; 80048; 80053; 83605; 83735; 85025; 85027; 85610; 85730; 87040; 87070; 87075; 87077; 87186; 87205; 93005; 93306; 96374; 99284

== ENCOUNTER 2024-11-16 17:50 | Emergency (ER) | payer BC ==
--- NOTE | 2024-11-16 18:56 | ED ---
General Adult HPI - General Chief complaint: Recheck/Abnormal Lab/Rx Stated complaint: port issue Time Seen by Provider: 11/16/24 18:15 Source: patient, RN notes reviewed Mode of arrival: ambulatory Limitations: no limitations - History of Present Illness Initial comments: 44-year-old male presents to the emergency department for evaluation of PICC line issue. Patient states that he had a port placed at the beginning of October for lymphoma treatment. He noticed redness and swelling to the area radiating to his shoulder this prompted him to come to the emergency department. He was admitted for infection around the port. He was found to have bacteremia. A PICC line was placed. This was done yesterday. It was utilized 1 time while he was in the hospital. He went home to have and his home nurse came to do his antibiotics. The nurse attempted to flush the line but it was not working. - Related Data Home Medications Medication Instructions Recorded Confirmed Aprepitant [Emend] 80 mg PO DIRECTED 11/09/24 11/09/24 Empagliflozin [Jardiance] 10 mg PO DIRECTED 11/09/24 11/09/24 Loperamide HCl [Imodium A-D] 4 mg PO QID PRN 11/09/24 11/09/24 Loratadine [Claritin] 10 mg PO DAILY 11/09/24 11/09/24 OLANZapine [ZyPREXA] 2.5 mg PO DIRECTED 11/09/24 11/09/24 Omeprazole [PriLOSEC] 20 mg PO DAILY 11/09/24 11/09/24 Ondansetron [Zofran] 4 mg PO Q4H PRN 11/09/24 11/09/24 predniSONE [Deltasone] 100 mg PO DIRECTED 11/09/24 11/09/24 Previous Rx's Medication Instructions Recorded HYDROcodone/APAP 10-325MG [[place] 1 each PO Q6HR PRN #12 tab 11/15/24 10-325] amLODIPine [Norvasc] 5 mg PO DAILY #30 tab 11/15/24 ceFAZolin [Kefzol] 3 gm IVP Q8HR #42 each 11/15/24 Cephalexin [Keflex] 500 mg PO Q6HR #40 cap 11/16/24 Sulfamethox-Tmp 800-160Mg [Bactrim 1 each PO Q12HR #20 tab 11/16/24 Ds] Allergies Allergy/AdvReac Type Severity Reaction Status Date / Time adhesive tape AdvReac Rash/Hives Verified 11/16/24 18:07 Review of Systems ROS Statement: Those systems with pertinent positive or pertinent negative responses have been documented in the HPI. ROS Other: All systems not noted in ROS Statement are negative. Past Medical History Past Medical History: Pneumonia Additional Past Medical History / Comment(s): swelling and lump above rt collar bone-dx lymphoma-finishing tx 10-25-24 w/ dexamethasone-bx rt neck mass-needle bx, left kidney "lit up in pet scan",-following w/ Dr Bernal, hx bronchitis,pneumonia back in high school,kidney stones-passed on own 2023 History of Any Multi-Drug Resistant Organisms: None Reported Past Surgical History: No Surgical Hx Reported Additional Past Surgical History / Comment(s): Right port placement Past Anesthesia/Blood Transfusion Reactions: No Reported Reaction Additional Past Anesthesia/Blood Transfusion Reaction / Comment(s): no surgical hx Past Psychological History: No Psychological Hx Reported Smoking Status: Former smoker Past Alcohol Use History: None Reported Past Drug Use History: None Reported - Past Family History Mother Family Medical History: Cancer Additional Family Medical History / Comment(s): lung CA. maternal uncle lung CA. maternal aunt breast CA. maternal grandfather leukemia Father Additional Family Medical History / Comment(s): paternal uncle pancreatic CA General Exam Limitations: no limitations General appearance: alert, in no apparent distress Head exam: Present: atraumatic, normocephalic, normal inspection Eye exam: Present: normal appearance, PERRL, EOMI. Absent: scleral icterus, conjunctival injection, periorbital swelling ENT exam: Present: normal exam, mucous membranes moist Respiratory exam: Present: normal lung sounds bilaterally. Absent: respiratory distress, wheezes, rales, rhonchi, stridor Cardiovascular Exam: Present: regular rate, normal rhythm, normal heart sounds. Absent: systolic murmur, diastolic murmur, rubs, gallop, clicks Extremities exam: Present: full ROM, normal capillary refill, other (PICC in place in left upper extremity). Absent: tenderness, pedal edema, joint swelling, calf tenderness Neurological exam: Present: alert, oriented X3 Psychiatric exam: Present: normal affect, normal mood Skin exam: Present: warm, dry, intact, normal color. Absent: rash Course Vital Signs 11/16/24 18:05 Temperature 97.8 F Pulse Rate 85 Respiratory 18 Rate Blood Pressure 152/87 O2 Sat by Pulse 98 Oximetry Medical Decision Making - Medical Decision Making Was pt. sent in by a medical professional or institution (NATHALIA Leo, DISABILITY REPRESENTATIVE, urgent care, hospital, or custodial...) When possible be specific @ -No Did you speak to anyone other than the patient for history (EMS, parent, family, police, friend...)? What history was obtained from this source @ -No Did you review nursing and triage notes (agree or disagree)? Why? @ -I reviewed and agree with nursing and triage notes Were old charts reviewed (outside hosp., previous admission, EMS record, old EKG, old radiological studies, urgent care reports/EKG's, custodial records)? Report findings @ -No old charts were reviewed Differential Diagnosis (chest pain, altered mental status, abdominal pain women, abdominal pain men, vaginal bleeding, weakness, fever, dyspnea, syncope, headache, dizziness, GI bleed, back pain, seizure, CVA, palpatations, mental he alth, musculoskeletal)? @ -PICC line complication, bacteremia, sepsis, this this is not all-inclusive EKG interpreted by me (3pts min.). @ -None X-rays interpreted by me (1pt min.). @ -None done CT interpreted by me (1pt min.). @ -None done U/S interpreted by me (1pt. min.). @ -None done What testing was considered but not performed or refused? (CT, X-rays, U/S, labs)? Why? @ -None What meds were considered but not given or refused? Why? @ -None Did you discuss the management of the patient with other professionals (professionals i.e. NATHALIA Leo, DISABILITY REPRESENTATIVE, lab, RT, psych nurse, director of social media marketing, instructor kindergarten, teacher, chief accounting officer, catalytic case operator)? Give summary @ -No Was smoking cessation discussed for >3mins.? @ -No Was critical care preformed (if so, how long)? @ -No Were there social determinants of health that impacted care today? How? (Homelessness, low income, unemployed, alcoholism, drug addiction, transportation, low edu. Level, literacy, decrease access to med. care, group home, rehab)? @ -No Was there de-escalation of care discussed even if they declined (Discuss DNR or withdrawal of care, Hospice)? DNR status @ -No What co-morbidities impacted this encounter? (DM, HTN, Smoking, COPD, CAD, Cancer, CVA, ARF, Chemo, Hep., AIDS, mental health diagnosis, sleep apnea, morbid obesity)? @ -None Was patient admitted / discharged? Hospital course, mention meds given and route, prescriptions, significant lab abnormalities, going to OR and other pertinent info. @ -Discharge. Patient left AGAINST MEDICAL ADVICE. The patient presented emergency department for evaluation of a PICC line issue. Was unable to flush. He is scheduled to have a dose of Kefzol through his PICC line but is PICC line is not functioning. Attempted he utilize Cathflo which did not resolve the issue. Laboratory studies were obtainedNo significant leukocytosis, hemoglobin 12.9; CMP on actionable at this time. Patient was administered a dose of through an IV I advised the patient that he should be admitted to the hospital for IV placement and his PICC line but the patient refused. He states that he is not getting another PICC line. I did send oral antibiotics to the pharmacy but he was advised that he would be leaving AGAINST MEDICAL ADVICE as there is risk that him not receiving his IV antibiotics. Also advised that we could pull the PICC line as it is not functioning but he refused this as well and states that he will wait until Monday when he follows up. Case discussed with Dr. Gibbons. Undiagnosed new problem with uncertain prognosis? @ -No Drug Therapy requiring intensive monitoring for toxicity (Heparin, Nitro, Insulin, Cardizem)? @ -No Were any procedures done? @ -No Diagnosis/symptom? @ -PICC line malfunction Acute, or Chronic, or Acute on Chronic? @ -Acute Uncomplicated (without systemic symptoms) or Complicated (systemic symptoms)? @ -Uncomplicated Side effects of treatment? @ -No Exacerbation, Progression, or Severe Exacerbation? @ -No Poses a threat to life or bodily function? How? (Chest pain, [place], [place], pneumonia, PE, COPD, DKA, ARF, appy, cholecystitis, CVA, Diverticulitis, Homicidal, Suicidal, threat to staff... and all critical care pts) @ -Yes he will not be receiving his antibiotics IV - Lab Data Result diagrams: 11/16/24 22:25 11/16/24 20:34 Lab Results 11/16/24 11/16/24 Range/Units 20:34 22:25 WBC 9.9 (3.8-10.6) k/uL RBC 4.56 (4.30-5.90) m/uL Hgb 12.9 L (13.0-17.5) gm/dL Hct 40.4 (39.0-53.0) % MCV 88.8 (80.0-100.0) fL MCH 28.3 (25.0-35.0) pg MCHC 31.8 (31.0-37.0) g/dL RDW 14.1 (11.5-15.5) % Plt Count 362 (150-450) k/uL MPV 7.4 Sodium 136 L (137-145) mmol/L Potassium 4.6 (3.5-5.1) mmol/L Chloride 104 (98-107) mmol/L Carbon Dioxide 26 (22-30) mmol/L Anion Gap 6 mmol/L BUN 15 (9-20) mg/dL Creatinine 0.71 (0.66-1.25) mg/dL Est GFR (CKD-EPI)AfAm >90 (>60 ml/min/1.73 sqM) Est GFR (CKD-EPI)NonAf >90 (>60 ml/min/1.73 sqM) Glucose 109 H (74-99) mg/dL Calcium 9.1 (8.4-10.2) mg/dL Total Bilirubin 0.7 (0.2-1.3) mg/dL AST 39 (17-59) U/L ALT 27 (4-49) U/L Alkaline Phosphatase 105 (38-126) U/L Total Protein 6.5 (6.3-8.2) g/dL Albumin 3.8 (3.5-5.0) g/dL Disposition Clinical Impression: Occluded PICC line, Left against medical advice Disposition: HOME SELF-CARE Condition: Stable Prescriptions: Sulfamethox-Tmp 800-160Mg [Bactrim Ds] 1 each PO Q12HR #20 tab Cephalexin [Keflex] 500 mg PO Q6HR #40 cap Is patient prescribed a controlled substance at d/c from ED?: No Referrals: Racheal King DO [Primary Care Provider] - 1-2 days
[2024-11-16] MEDS: ALTEPLASE 2 MG VIAL (CATHFLO) MISCELLANE ONE (20:40)
[2024-11-16 20:56] LABS: ALT 27 U/L (4-49); AST 39 U/L (17-59); African American GFR (CKD) >90 (>60 ml/min/1.73 sqM); Albumin 3.8 g/dL (3.5-5.0); Alkaline Phosphatase 105 U/L (38-126); Anion Gap 6 mmol/L; Blood Urea Nitrogen 15 mg/dL (9-20); Calcium 9.1 mg/dL (8.4-10.2); Carbon Dioxide 26 mmol/L (22-30); Chloride 104 mmol/L (98-107); Glucose 109 mg/dL (74-99); Non-African American GFR(CKD) >90 (>60 ml/min/1.73 sqM); Sodium 136 mmol/L (137-145); Total Bilirubin 0.7 mg/dL (0.2-1.3); Total Protein 6.5 g/dL (6.3-8.2)
[2024-11-16 21:09] LABS: Potassium 4.6 mmol/L (3.5-5.1)
[2024-11-16 23:27] LABS: HCT 40.4 % (39.0-53.0); HGB 12.9 gm/dL (13.0-17.5); MCH 28.3 pg (25.0-35.0); MCHC 31.8 g/dL (31.0-37.0); MCV 88.8 fL (80.0-100.0); Mean Platelet Volume 7.4; Platelet Count 362 k/uL (150-450); RBC 4.56 m/uL (4.30-5.90); RDW 14.1 % (11.5-15.5); WBC 9.9 k/uL (3.8-10.6)
[2024-11-17 00:28] VITALS: BP 148/86; PULSE 82; RESP 16; TEMP 97.3
[2024-11-17 04:15] LABS: Lymphocytes # (M) 2.18 k/uL (1.0-4.8); Metamyelocytes % 1 %; Neutrophils % (M) 64 %; Nucleated Red Blood Cells 0 /100 WBC (0-0)
[2024-11-17 04:18] LABS: Band Neutrophils % 8 %; Total Cells Counted 200
== END 2024-11-17 | disposition home or self-care (01) ==
LOC: EC 17:50
DX: Z45.2 Encounter for adjustment and management of vascular access device (principal); Z53.29 Procedure and treatment not carried out because of patient's decision for other reasons; Z87.891 Personal history of nicotine dependence; Z91.048 Other nonmedicinal substance allergy status
CPT/HCPCS: 36415; 80053; 85025; 99283; 96365; J0690; J2997

== ENCOUNTER → 2024-11-29 | Outpatient (CLI) | payer BC ==
--- NOTE | 2024-11-29 10:48 | PE ---
EXAMINATION TYPE: PET CT fusion skull to thigh DATE OF EXAM: 11/29/2024 CLINICAL INDICATION:Male, 44 years old with history of C85.11 B cell lymphoma; TECHNIQUE: Following the intravenous administration of 12.6 mCi of F-18 FDG, whole body images are performed from the skull base to the Mid thigh. Images are reviewed on the computer in the coronal, axial, and sagittal planes. Reconstructed rotating images are created on independent workstation and reviewed on the computer. A non-contrast CT is performed in conjunction with the PET scan. Glucose level 103 mg/dL CT DLP: 1602 mGycm, Automated exposure control for dose reduction was used. COMPARISON: CT 11/09/2024, PET/CT 10/10/2004, MRI: None FINDINGS: Mediastinal SUV mean is 1.3. Hepatic parenchyma SUV mean is 2.2. SKULL BASE AND NECK: Extensive lymphadenopathy in the right neck is no longer identified. There is no FDG avid lymph nodes in the right neck or throughout the exam. There remains some ill-defined uptake max SUV 2.5 in the r ight low neck which may be scarring/pleural posttreatment change.. CHEST, MEDIASTINUM, AND HILAR REGION: No suspicious radiotracer activity. ABDOMEN AND PELVIS: No suspicious radiotracer activity. MUSCULOSKELETAL STRUCTURES: Diffuse uptake compatible with colony stimulating factor medicine OTHER CT: Heart is mildly enlarged for size. Hepatic steatosis. Left PICC with tip terminating in the superior vena cava. Right Mediport has been removed. IMPRESSION: Positive response to therapy with drastic decrease in size of lymphadenopathy with no kyree reciable lymph nodes identified. Mild streaky uptake in the right lung posterior neck remains. Patchy uptake throughout the osseous structures likely secondary to colony stimulating factor. Contin ued surveillance recommended. [facility], , 11/29/2024 10:46 AM
== END | disposition home or self-care (01) ==
LOC: RADPETMAIN 06:06
PROVIDERS: ATTEND Internal Medicine Hematology & Oncology
DX: C85.11 Unspecified B-cell lymphoma, lymph nodes of head, face, and neck (principal); R59.1 Generalized enlarged lymph nodes
CPT/HCPCS: 78815; A9552

== ENCOUNTER 2024-12-20 10:46 | Day surgery (SDC) | payer BC ==
[2024-12-18 09:33] VITALS: BMI 48.4
[~2024-12-20 10:46] MED LIST changes: +DEXAMETHASONE SOD PHOSPHATE 4 MG/ML 1 ML VIAL IV ONE; +HYDROmorphone 0.5 MG/0.5 ML SYRINGE IVP PRN; +LIDOCAINE 1% (10MG/ML) FOR IV START INTRADERMA PRN; +MIDAZOLAM 2 MG/2 ML VIAL IV PRN; +fentaNYL (PF) 50 MCG/ML 2 ML AMP IVP PRN
[2024-12-20] MEDS: IV FLUID CONTINUATION 1,000 ML IV ONE (11:19)
[2024-12-20] MEDS: LACTATED RINGERS 1,000 ML IV SCH (12:01)
[2024-12-20] MEDS: ONDANSETRON 4 MG/2 ML VIAL IVP ONE (12:02)
[2024-12-20] MEDS: HYDROCORTISONE SUCCINATE 100 MG/2 ML VIAL IV STA (12:04)
[2024-12-20 12:19] LABS: Glucose,Whole Blood 172 mg/dL (70-110)
[2024-12-20] MEDS ORDERED: PROPOFOL 10 MG/ML 20 ML VIAL IV ONE (13:03)
[2024-12-20] MEDS ORDERED: MIDAZOLAM 2 MG/2 ML VIAL ONE (13:03)
[2024-12-20] MEDS ORDERED: ESMOLOL 100 MG/10 ML VIAL ONE (13:03)
[2024-12-20] MEDS ORDERED: KETAMINE HCL IN 0.9 % NACL 50 MG/5 ML SYRINGE ONE (13:03)
[2024-12-20] MEDS ORDERED: fentaNYL (PF) 50 MCG/ML 2 ML AMP ONE (13:03)
[2024-12-20] MEDS: LIDOCAINE 1% INJ 10MG/ML (20 ML MDV) SQ ONE ×3 (13:19→13:28)
--- NOTE | 2024-12-20 14:30 | FL ---
Fluoroscopy History: C85.11 LYMPHOMA 1min 19sec fl time, DAP=15.858, port a cath insertion, min [facility], , 12/20/2024 2:28 PM
[2024-12-20 14:37] VITALS: TEMP 97.5
[2024-12-20 15:07] LABS: Glucose,Whole Blood 138 mg/dL (70-110)
[2024-12-20 15:14] VITALS: RESP 16
--- NOTE | 2024-12-20 15:16 | XR ---
EXAMINATION TYPE: XR chest 1V portable DATE OF EXAM: 12/20/2024 3:10 PM COMPARISON: None. CLINICAL INDICATION: Male, 44 years old with history of MEDIPORT, Chest pain TECHNIQUE: Single frontal view of the chest is obtained. FINDINGS: There is no focal air space opacity, pleural effusion, or pneumothorax seen. Central venous line with its distal tip within the SVC. No evidence of pneumothorax. The cardiac silhouette size is within normal limits. The osseous structures are intact. IMPRESSION: 1. No acute process. [facility], , 12/20/2024 3:13 PM
[2024-12-20] MEDS: ACETAMINOPHEN IV (For NPO) 1,000 MG in EMPTY BAG 1 BAG IVPB STA (16:04)
--- NOTE | 2024-12-20 17:45 | P.CRDCN ---
History of Present Illness History of present illness: HISTORY OF PRESENTING ILLNESS This is a pleasant 44-year-old with past medical history significant for newly diagnosed hypertension as well as diabetes mellitus type 2 and lymphoma as well as bacteremia and infected port. He does not follow with a landman. He presented secondary to outpatient port placement from the left subclavian site which was uneventful. Patient was noted to be in atrial fibrillation with RVR with heart rates in the 90-1 10 range and therefore cardiology was asked to see patient. Patient did have prior hospitalization from October where he had some tachycardia and EKG read out as sinus with frequent PACs. EKG today does show atrial fibrillation with variable heart rates. He denies any real symptoms however at times will feel some palpitations. Denies any chest pain or pressure. No significant shortness of breath. He has been going undergoing R-C HOP for his lymphoma and has had 3 treatments. He had prior echo from [facility] in September as well as from late October which showed preserved EF without significant effusion. He states he was recently placed on amlodipine for blood pressure and also recently placed on Jardiance for diabetes. He does snore and concern during procedure for sleep apnea. He does not smoke, no alcohol. No family history of CAD. REVIEW OF SYSTEMS At the time of my exam: CONSTITUTIONAL: Denies fever or chills. CARDIOVASCULAR: Denies chest pain, shortness of breath, orthopnea, PND or palpitations. RESPIRATORY: Denies cough. GASTROINTESTINAL: Denies abdominal pain, diarrhea, constipation, nausea or vomiting. MUSCULOSKELETAL: Denies myalgias. NEUROLOGIC: Denies numbness, tingling or weakness. ENDOCRINE: Denies fatigue, weight change, polydipsia or polyurina. GENITOURINARY: Denies burning, hematuria or urgency with micturation. HEMATOLOGIC: Denies history of anemia or bleeding. PHYSICAL EXAMINATION Vital signs reviewed. CONSTITUTIONAL: No apparent distress. HEENT: Head is normocephalic. Pupils are equal, round. Sclerae anicteric. Mucous membranes of the mouth are moist. No JVD. No carotid bruit. CHEST EXAMINATION: Lungs are clear to auscultation. No chest wall tenderness is noted on palpation or with deep breathing. HEART EXAMINATION: Irregular rate and rhythm. S1, S2 heard. No murmurs, gallops or rub. ABDOMEN: Soft, nontender. Positive bowel sounds. EXTREMITIES: 2+ peripheral pulses, no lower extremity edema and no calf tenderness. NEUROLOGIC EXAMINATION: Patient is awake, alert and oriented x3. ASSESSMENT New onset atrial fibrillation with mild RVR Chronic dyspnea Lymphoma undergoing chemotherapy Hypertension, recently diagnosed Diabetes mellitus type 2 recently diagnosed Obesity Previous infected right subclavian port Status post left subclavian port 12/20/2024 Suspected sleep apnea PLAN Patient with atrial fibrillation and prior EKG also concerning for some sinus arrhythmia and intermittent A-fib. We do not have a presurgical EKG and suspect A-fib is more long-term intermittently going on. We discussed possible hospitalization however patient fairly asymptomatic and refused to go to ER. Therefore discussed changing amlodipine to verapamil. Technically [id number] score of 2 for hypertension and diabetes. No history of stroke, congestive heart failure or vascular disease. However given currently undergoing chemotherapy and recently had surgery/port placement as well as fairly mild hypertension and diabetes we will hold off on anticoagulation at this time. We discussed close outpatient follow-up with likely repeating an echo as well as an event monitor. Appears stable for discharge home with likely outpatient follow- up on Monday or Monday. Past Medical History Past Medical History: Diabetes Mellitus, Hypertension, Pneumonia Additional Past Medical History / Comment(s): Current infected left arm port. Lymphoma, following with Dr Bernal, hx bronchitis, hx pneumonia back in high school, hx kidney stones. History of Any Multi-Drug Resistant Organisms: None Reported Past Surgical History: No Surgical Hx Reported Additional Past Surgical History / Comment(s): Right chest [id number] placement, PICC line left arm. Past Anesthesia/Blood Transfusion Reactions: No Reported Reaction Additional Past Anesthesia/Blood Transfusion Reaction / Comment(s): no surgical hx Smoking Status: Former smoker - Past Family History Mother Family Medical History: Cancer Additional Family Medical History / Comment(s): Lung cancer. Maternal uncle lung cancer. Maternal aunt breast cancer. Maternal grandfather leukemia. Father Additional Family Medical History / Comment(s): Paternal uncle pancreatic cancer. Medications and Allergies Home Medications Medication Instructions Recorded Confirmed Type Aprepitant [Emend] 80 mg PO QAM PRN 11/09/24 12/20/24 History Empagliflozin [Jardiance] 10 mg PO DAILY 11/09/24 12/20/24 History Loperamide HCl [Imodium A-D] 4 mg PO QID PRN 11/09/24 12/20/24 History Loratadine [Claritin] 10 mg PO DAILY 11/09/24 12/20/24 History OLANZapine [ZyPREXA] 2.5 mg PO HS PRN 11/09/24 12/20/24 History Omeprazole [PriLOSEC] 20 mg PO DAILY 11/09/24 12/20/24 History Ondansetron [Zofran] 4 mg PO Q4H PRN 11/09/24 12/20/24 History predniSONE [Deltasone] 100 mg PO DAILY PRN 11/09/24 12/20/24 History amLODIPine [Norvasc] 5 mg PO DAILY #30 tab 11/15/24 12/20/24 Rx Allergies Allergy/AdvReac Type Severity Reaction Status Date / Time adhesive tape AdvReac Rash/Hives Verified 12/20/24 11:30 Physical Exam Vitals: Vital Signs Temp Pulse Pulse Resp BP Pulse Ox 12/20/24 16:45 130 H 16 119/66 93 L 12/20/24 16:15 107 H 16 175/95 92 L 12/20/24 15:45 121 H 16 153/69 92 L 12/20/24 15:15 114 H 16 142/65 93 L 12/20/24 15:00 121 H 16 138/74 97 12/20/24 14:45 119 H 16 134/73 97 12/20/24 14:26 97.5 F L 115 H 14 143/65 97 12/20/24 11:29 97.3 F L 85 18 126/58 93 L Intake and Output 12/20/24 12/20/24 12/20/24 06:59 14:59 22:59 Intake Total 800 Output Total 30 400 Balance 770 -400 Intake: IV 800 Output: Urine 400 Estimated Blood Loss 30 Other: Weight 160.3 kg Results Current Medications Generic Name Dose Route Start Last Admin Trade Name Freq PRN Reason Stop Dose Admin Fentanyl Citrate 50 mcg 12/20/24 06:05 Fentanyl (Pf) 50 Mcg/Ml 2 Ml Amp IVP 12/20/24 23:00 Q3M PRN Pre-Op Pain Control Hydromorphone HCl 0.5 mg 12/20/24 06:05 Hydromorphone 0.5 Mg/0.5 Ml Syringe IVP 12/20/24 23:00 Q5M PRN Phase 1 or 2 - Pain Control Lactated Ringer's 1,000 mls @ 20 mls/hr 12/20/24 06:05 12/20/24 12:01 Lactated Ringers IV 01/19/25 06:04 20 mls/hr .Q24H PHILIPPE Administration Lidocaine HCl 0.1 ml 12/20/24 06:05 Lidocaine 1% (10mg/Ml) For Iv Start INTRADERMA 01/19/25 06:04 PER PROTOCOL PRN IV Start Midazolam HCl 2 mg 12/20/24 06:05 Midazolam 2 Mg/2 Ml Vial IV 12/20/24 23:00 ONCE PRN Pre-Op Anxiety Intake and Output 12/20/24 12/20/24 12/20/24 06:59 14:59 22:59 Intake Total 800 Output Total 30 400 Balance 770 -400 Intake: IV 800 Output: Urine 400 Estimated Blood Loss 30 Other: Weight 160.3 kg Patient Weight 12/21/24 06:59 Weight 160.3 kg
[2024-12-20 17:58] VITALS: BP 153/89; PULSE 130
[2024-12-20] MEDS: DILTIAZEM CD 180 MG CAP.ER.24H PO STA (18:07)
--- NOTE | 2024-12-21 12:16 | P.OP ---
Date of Procedure: 12/20/24 Preoperative Diagnosis: B-cell lymphoma Postoperative Diagnosis: B-cell lymphoma Procedure(s) Performed: Mediport insertion Implants: Mediport Anesthesia: GETA Surgeon: Marty Terrell Estimated Blood Loss (ml): 15 Pathology: none sent Condition: stable Disposition: PACU Indications for Procedure: B-cell lymphoma Description of Procedure: The patient was brought to the operating suite where he was cleaned and draped in sterile fashion a timeout was called and everyone agreed with the information recited next local was used to anesthetize the left puncture site. Next an introducer needle was then used to gain access into the left subclavian vein a guidewire was placed through this. Next local was used to make a pocket along with a #15 blade and electrocautery was dissected down to the prepectoral fascia a tunneling device was used to tunnel the catheter through the subcu fat. Once this was done and introducer dilator sheath combo was slighted over the guidewire the guidewire was then removed and the catheter was fed through the catheter to this SVC. At this point the patient had PVCs and the catheter was placed/retracted. The patient continued to have heart rate of 150 and the catheter was pulled back even more. At this time I realized the patient was in A-fib connected the Mediport secured the Mediport to the prepectoral fascia and closed the incision using 4-0 Vicryl suture in a running fashion. The patient tolerated procedure well and was then transported to PACU in stable condition Of note the patient was in A-fib, cardiology was consulted and cleared the patient to go home.
== END 2024-12-20 18:26 | disposition home or self-care (01) ==
LOC: OR 10:46
PROVIDERS: ATTEND Surgery
DX: C85.10 Unspecified B-cell lymphoma, unspecified site (principal); I48.91 Unspecified atrial fibrillation; I10 Essential (primary) hypertension; E11.9 Type 2 diabetes mellitus without complications; E66.9 Obesity, unspecified; G47.30 Sleep apnea, unspecified; Z68.42 Body mass index [BMI] 45.0-49.9, adult; Z87.442 Personal history of urinary calculi; Z87.891 Personal history of nicotine dependence; Z80.1 Family history of malignant neoplasm of trachea, bronchus and lung; Z80.3 Family history of malignant neoplasm of breast; Z79.84 Long term (current) use of oral hypoglycemic drugs; Z79.899 Other long term (current) drug therapy
CPT/HCPCS: 36561; 77001; 71045; J1720; J2405; J2003; J0131

== ENCOUNTER 2025-01-29 11:57 | Observation (INO) | payer BC ==
[2025-01-29 12:40] LABS: HCT 37.5 % (39.6-50.0); HGB 12.7 g/dL (13.0-17.0); MCH 30.4 pg (27.0-32.0); MCHC 33.9 g/dL (32.0-37.0); MCV 89.7 fL (80.0-97.0); Mean Platelet Volume 8.8 fL (9.5-12.2); Platelet Count 399 10*3/uL (140-440); RBC 4.18 10*6/uL (4.40-5.60); RDW 15.3 % (11.5-14.5)
[2025-01-29 12:44] LABS: WBC 56.59 10*3/uL (4.50-10.00)
--- NOTE | 2025-01-29 12:48 | ED ---
General Adult HPI - General Chief complaint: Shortness of Breath Stated complaint: SOB Time Seen by Provider: 01/29/25 12:10 Source: patient, RN notes reviewed, old records reviewed Mode of arrival: ambulatory Limitations: no limitations - History of Present Illness Initial comments: This is a 44-year-old male who presents to the emergency department with a history of lymphoma. He got his latest chemo dose on Monday. Patient states he went to work today and anytime he got up and walked around he was extremely short of breath. Patient also states he feels his heart race once he gets more short of breath. Patient states sitting still he has no problems with breathing. Patient denies any chest pain. Patient denies fever chills. Patient has any cough. Patient denies any swelling of the legs or calf tenderness. - Related Data Home Medications Medication Instructions Recorded Confirmed Aprepitant [Emend] 80 mg PO QAM PRN 11/09/24 12/20/24 Empagliflozin [Jardiance] 10 mg PO DAILY 11/09/24 12/20/24 Loperamide HCl [Imodium A-D] 4 mg PO QID PRN 11/09/24 12/20/24 Loratadine [Claritin] 10 mg PO DAILY 11/09/24 12/20/24 OLANZapine [ZyPREXA] 2.5 mg PO HS PRN 11/09/24 12/20/24 Omeprazole [PriLOSEC] 20 mg PO DAILY 11/09/24 12/20/24 Ondansetron [Zofran] 4 mg PO Q4H PRN 11/09/24 12/20/24 predniSONE [Deltasone] 100 mg PO DAILY PRN 11/09/24 12/20/24 Previous Rx's Medication Instructions Recorded dilTIAZem HCL [Cardizem LA] 180 mg PO DAILY #90 tab 12/20/24 Allergies Allergy/AdvReac Type Severity Reaction Status Date / Time adhesive tape AdvReac Rash/Hives Verified 12/20/24 11:30 Review of Systems ROS Statement: Those systems with pertinent positive or pertinent negative responses have been documented in the HPI. ROS Other: All systems not noted in ROS Statement are negative. Past Medical History Past Medical History: Cancer, Diabetes Mellitus, Hypertension, Pneumonia Additional Past Medical History / Comment(s): Current infected left arm port. Lymphoma, following with Dr Bernal, hx bronchitis, hx pneumonia back in high school, hx kidney stones. History of Any Multi-Drug Resistant Organisms: None Reported Past Surgical History: No Surgical Hx Reported Additional Past Surgical History / Comment(s): Right chest [id number] placement, PICC line left arm. Past Anesthesia/Blood Transfusion Reactions: No Reported Reaction Additional Past Anesthesia/Blood Transfusion Reaction / Comment(s): no surgical hx Past Psychological History: No Psychological Hx Reported Smoking Status: Former smoker - Past Family History Mother Family Medical History: Cancer Additional Family Medical History / Comment(s): Lung cancer. Maternal uncle lung cancer. Maternal aunt breast cancer. Maternal grandfather leukemia. Father Additional Family Medical History / Comment(s): Paternal uncle pancreatic cance r. General Exam - General Exam Comments Initial Comments: GENERAL: Patient is well-developed and well-nourished. Patient is nontoxic and well- hydrated and is in no acute distress. ENT: Neck is soft and supple. No significant lymphadenopathy is noted. Oropharynx is clear. Moist mucous membranes. Neck has full range of motion without eliciting any pain. EYES: The sclera were anicteric and conjunctiva were pink and moist. Extraocular movements were intact and pupils were equal round and reactive to light. Eyelids were unremarkable. PULMONARY: Unlabored respirations. Good breath sounds bilaterally. No audible rales rhonchi or wheezing was noted. CARDIOVASCULAR: There is a regular rate and rhythm without any murmurs gallops or rubs. ABDOMEN: Soft and nontender with normal bowel sounds. SKIN: Skin is clear with no lesions or rashes and otherwise unremarkable. NEUROLOGIC: Patient is alert and oriented x3. Cranial nerves II through XII are grossly intact. Motor and sensory are also intact. Normal speech, volume and content. Symmetrical smile. MUSCULOSKELETAL: Normal extremities with adequate strength and full range of motion. LYMPHATICS: No significant lymphadenopathy is noted PSYCHIATRIC: Normal psychiatric evaluation. Limitations: no limitations Course Vital Signs 01/29/25 12:09 Temperature 97.9 F Pulse Rate 82 Respiratory 16 Rate Blood Pressure 122/76 O2 Sat by Pulse 95 Oximetry Medical Decision Making - Medical Decision Making EKG is interpreted by myself. EKG shows sinus rhythm at 82 bpm RI interval 176 QRS is 84 QT interval is 331 QTc is 370. Patient EKG shows no ST segment elevation or depression Was pt. sent in by a medical professional or institution ([facility] Leo, SHOE SALESPERSON, urgent care, hospital, or penitentiary...) When possible be specific @ -No Did you speak to anyone other than the patient for history (EMS, parent, family, police, friend...)? What history was obtained from this source @ -No Did you review nursing and triage notes (agree or disagree)? Why? @ -I reviewed and agree with nursing and triage notes Were old charts reviewed (outside hosp., previous admission, EMS record, old EKG, old radiological studies, urgent care reports/EKG's, penitentiary records)? Report findings @ -No old charts were reviewed Differential Diagnosis? @ -Differential Dyspnea: Coronary syndrome, arrhythmia, tamponade, asthma, COPD, pulmonary embolism, pneumonia, pneumothorax, pulmonary effusion, anaphylaxis, diabetic ketoacidosis, flailed chest, pulmonary contusion, diaphragmatic rupture, anemia, neuromuscular, this is not meant to be an all-inclusive list. EKG interpreted by me (3pts min.). @ -As above X-rays interpreted by me (1pt min.). @ -Chest x-ray shows no acute abnormality CT interpreted by me (1pt min.). @ -CT of the chest shows no PE. U/S interpreted by me (1pt. min.). @ -None done What testing was considered but not performed or refused? (CT, X-rays, U/S, labs)? Why? @ -None What meds were considered but not given or refused? Why? @ -None Did you discuss the management of the patient with other professionals (professionals i.e. NATHALIA Leo, SHOE SALESPERSON, lab, RT, psych nurse, case management social worker, board catcher, teacher, sheriff officer, case worker)? Give summary @ -I spoke with [facility] agreed to admit the patient. Spoke with oncology and they agreed to admit the patient and wanted repeat lab work in the morning. Was smoking cessation discussed for >3mins.? @ -No Was critical care preformed (if so, how long)? @ -No Were there social determinants of health that impacted care today? How? (Homelessness, low income, unemployed, alcoholism, drug addiction, transportation, low edu. Level, literacy, decrease access to med. care, detention, rehab)? @ -No Was there de-escalation of care discussed even if they declined (Discuss DNR or withdrawal of care, Hospice)? DNR status @ -No What co-morbidities impacted this encounter? (DM, HTN, Smoking, COPD, CAD, Cancer, CVA, ARF, Chemo, Hep., AIDS, mental health diagnosis, sleep apnea, morbid obesity)? @ -None Was patient admitted / discharged? Hospital course, mention meds given and route, prescriptions, significant lab abnormalities, going to OR and other pert inent info. @ -Patient's white count was 56,000 after having been 5 2 days ago. Patient will be admitted and hydrated. Patient will have repeat lab work in the morning. Undiagnosed new problem with uncertain prognosis? @ -No Drug Therapy requiring intensive monitoring for toxicity (Heparin, Nitro, Insulin, Cardizem)? @ -No Were any procedures done? @ -No Diagnosis/symptom? @ -Leukocytosis Acute, or Chronic, or Acute on Chronic? @ -Acute Uncomplicated (without systemic symptoms) or Complicated (systemic symptoms)? @ -Complicated Side effects of treatment? @ -No Exacerbation, Progression, or Severe Exacerbation? @ -No Poses a threat to life or bodily function? How? (Chest pain, [place], [place], pneumonia, PE, COPD, DKA, ARF, appy, cholecystitis, CVA, Diverticulitis, Homicidal, Suicidal, threat to staff... and all critical care pts) @ -No Diagnosis/symptom? @ -Dyspnea Acute, or Chronic, or Acute on Chronic? @ -Acute Uncomplicated (without systemic symptoms) or Complicated (systemic symptoms)? @ -Complicated Side effects of treatment? @ -None Exacerbation, Progression, or Severe Exacerbation] @ -No Poses a threat to life or bodily function? @ -No - Lab Data Result diagrams: 01/29/25 12:15 01/29/25 12:15 Lab Results 01/29/25 01/29/25 01/29/25 Range/Units 12:15 12:15 12:15 WBC 56.59 H* (4.50-10.00) 10*3/uL RBC 4.18 L (4.40-5.60) 10*6/uL Hgb 12.7 L (13.0-17.0) g/dL Hct 37.5 L (39.6-50.0) % MCV 89.7 (80.0-97.0) fL MCH 30.4 (27.0-32.0) pg MCHC 33.9 (32.0-37.0) g/dL Plt Count 399 (140-440) 10*3/uL MPV 8.8 L (9.5-12.2) fL Immature Gran % (Auto) 7.3 % Neutrophils % (Manual) 87 % Band Neuts % (Manual) 9 % Lymphocytes % (Manual) 2 % Monocytes % (Manual) 2 % Immature Gran # 4.12 H (0.00-0.04) 10*3/uL Neutrophils # (Manual) 54.32 H (1.3-7.7) k/uL Lymphocytes # (Manual) 1.13 (1.0-4.8) k/uL Monocytes # (Manual) 1.13 H (0-1.0) k/uL Nucleated RBCs 0 (0-0) /100 WBC Manual Slide Review Performed Anisocytosis (manual) Present PT 11.1 (10.0-12.5) sec INR 1.0 (<1.2) APTT 21.9 L (22.0-30.0) sec D-Dimer 0.74 H (<0.60) mg/L FEU Sodium 140 (137-145) mmol/L Potassium 4.4 (3.5-5.1) mmol/L Chloride 103 (98-107) mmol/L Carbon Dioxide 26 (22-30) mmol/L Anion Gap 11 mmol/L BUN 22 H (9-20) mg/dL Creatinine 0.94 (0.66-1.25) mg/dL Est GFR (CKD-EPI)AfAm >90 (>60 ml/min/1.73 sqM) Est GFR (CKD-EPI)NonAf >90 (>60 ml/min/1.73 sqM) Glucose 211 H (74-99) mg/dL Calcium 9.9 (8.4-10.2) mg/dL Total Bilirubin 0.4 (0.2-1.3) mg/dL AST 22 (17-59) U/L ALT 27 (4-49) U/L Alkaline Phosphatase 108 (38-126) U/L Troponin I (0.000-0.034) ng/mL Total Protein 6.5 (6.3-8.2) g/dL Albumin 4.3 (3.5-5.0) g/dL 01/29/25 Range/Units 12:15 WBC (4.50-10.00) 10*3/uL RBC (4.40-5.60) 10*6/uL Hgb (13.0-17.0) g/dL Hct (39.6-50.0) % MCV (80.0-97.0) fL MCH (27.0-32.0) pg MCHC (32.0-37.0) g/dL Plt Count (140-440) 10*3/uL MPV (9.5-12.2) fL Immature Gran % (Auto) % Neutrophils % (Manual) % Band Neuts % (Manual) % Lymphocytes % (Manual) % Monocytes % (Manual) % Immature Gran # (0.00-0.04) 10*3/uL Neutrophils # (Manual) (1.3-7.7) k/uL Lymphocytes # (Manual) (1.0-4.8) k/uL Monocytes # (Manual) (0-1.0) k/uL Nucleated RBCs (0-0) /100 WBC Manual Slide Review Anisocytosis (manual) PT (10.0-12.5) sec INR (<1.2) APTT (22.0-30.0) sec D-Dimer (<0.60) mg/L FEU Sodium (137-145) mmol/L Potassium (3.5-5.1) mmol/L Chloride (98-107) mmol/L Carbon Dioxide (22-30) mmol/L Anion Gap mmol/L BUN (9-20) mg/dL Creatinine (0.66-1.25) mg/dL Est GFR (CKD-EPI)AfAm (>60 ml/min/1.73 sqM) Est GFR (CKD-EPI)NonAf (>60 ml/min/1.73 sqM) Glucose (74-99) mg/dL Calcium (8.4-10.2) mg/dL Total Bilirubin (0.2-1.3) mg/dL AST (17-59) U/L ALT (4-49) U/L Alkaline Phosphatase (38-126) U/L Troponin I <0.012 (0.000-0.034) ng/mL Total Protein (6.3-8.2) g/dL Albumin (3.5-5.0) g/dL Disposition Clinical Impression: Leukocytosis, Dyspnea, History of lymphoma Disposition: ADMITTED IP TO THIS HOSP Referrals: Racheal King DO [Primary Care Provider] - 1-2 days Time of Disposition: 15:53
[2025-01-29 12:54] LABS: ALT 27 U/L (4-49); AST 22 U/L (17-59); African American GFR (CKD) >90 (>60 ml/min/1.73 sqM); Albumin 4.3 g/dL (3.5-5.0); Alkaline Phosphatase 108 U/L (38-126); Anion Gap 11 mmol/L; Blood Urea Nitrogen 22 mg/dL (9-20); Calcium 9.9 mg/dL (8.4-10.2); Carbon Dioxide 26 mmol/L (22-30); Chloride 103 mmol/L (98-107); Glucose 211 mg/dL (74-99); Non-African American GFR(CKD) >90 (>60 ml/min/1.73 sqM); Potassium 4.4 mmol/L (3.5-5.1); Sodium 140 mmol/L (137-145); Total Bilirubin 0.4 mg/dL (0.2-1.3); Total Protein 6.5 g/dL (6.3-8.2)
--- NOTE | 2025-01-29 12:59 | XR ---
EXAMINATION TYPE: XR chest 2V DATE OF EXAM: 01/29/2025 12:48 PM COMPARISON: 12/20/2024 CLINICAL INDICATION: Male, 44 years old with history of difficulty breathing, TECHNIQUE: XR chest 2V view(s) obtained. FINDINGS: The heart size is normal. The pulmonary vasculature is normal. The lungs are clear. Left side catheter has its tip within the superior vena cava region. IMPRESSION: 1. No acute pulmonary process. [facility], , 01/29/2025 12:57 PM
[2025-01-29 13:09] LABS: Band Neutrophils % 9 %; Lymphocytes # (M) 1.13 k/uL (1.0-4.8); Monocytes # (M) 1.13 k/uL (0-1.0); Neutrophils # (M) 54.32 k/uL (1.3-7.7); Neutrophils % (M) 87 %; Nucleated Red Blood Cells 0 /100 WBC (0-0); Total Cells Counted 100
[2025-01-29 13:10] LABS: Anisocytosis (M) Present
[2025-01-29 13:12] LABS: Partial Thromboplastin Time 21.9 sec (22.0-30.0); Prothrombin Time 11.1 sec (10.0-12.5)
--- NOTE | 2025-01-29 14:58 | CT ---
EXAMINATION TYPE: CT chest angio for PE DATE OF EXAM: 01/29/2025 COMPARISON: 11/09/2024 CT chest CLINICAL INDICATION: Male, 44 years old with history of Elevated D-dimer, difficulty breathing; PHH, , SOB or PAIN TECHNIQUE: Ct angiogram of the chest performed with , patient injected with mL of . MIP images are created and r eviewed. CT DLP: mGycm CT CTDI: mGy Automated exposure control for dose reduction was used. FINDINGS: There is slightly less than optimal opacification of pulmonary arteries and branches but there is no filling defect to suggest pulmonary embolism. Multiple pulmonary nodules are again demonstrated the majority of which are stable. There is a 8 mm r ight lower lobe pulmonary nodule which is considerably less dense than on the prior study. Neoplasm c annot be entirely excluded and although felt less likely a follow-up low-dose CT thorax in 3-4 months is recommended to confirm stability. There is no mediastinal, hilar or axillary adenopathy. There is no pleural effusion or pneumothorax. There is no airspace consolidation. Limited scanning through the upper abdomen reveals diffuse liver steatosis. IMPRESSION: 1. No definite evidence of pulmonary embolism. The study is mildly limited. 2. Multiple pulmonary nodules. A right lower lobe pulmonary nodule appears more prominent than on the prior study and is likely benign but follow-up low-dose CT thorax in 3-4 months is recommended to co nfirm stability. 3. Minimal moderate diffuse liver steatosis. 4. No acute cardiopulmonary disease. [facility], , 01/29/2025 2:55 PM
[2025-01-29] MEDS: SODIUM CHLORIDE 0.9% 1,000 ML IV ONE (15:53)
[2025-01-29] MEDS: SODIUM CHLORIDE 0.9% 1,000 ML IV SCH (18:05)
[2025-01-29] MEDS: OLANZapine 2.5 MG TAB PO SCH (22:15)
[2025-01-29] MEDS: DILTIAZEM CD 180 MG CAP.ER.24H PO SCH (22:15)
--- NOTE | 2025-01-30 02:24 | HP ---
HISTORY AND PHYSICAL CHIEF COMPLAINT: Shortness of breath. HISTORY OF PRESENT ILLNESS: This is a 44-year-old gentleman with a past medical history of lymphoma, is on chemo, is complaining of significant shortness of breath, especially on activity. The patient had history of pneumonia. The D-dimer was found to be mildly elevated at 0.74. The chest x-ray, which I reviewed personally, showed no acute pulmonary processes. A CT angio of the chest was also done, which showed no evidence of any definite pulmonary embolism. Multiple pulmonary nodules have been noted and some liver steatosis also noted. There is no history of fever, rigors, or chills. White count is significantly elevated at this time. PAST MEDICAL HISTORY: Lymphoma, on chemotherapy; history of diabetes type 2; hypertension; pneumonia. Rest of history in chart is also reviewed. HOME MEDICATIONS: Reviewed, include prednisone. Doses and rest of medication not confirmed yet. ALLERGIES: Tape. FAMILY HISTORY: History of lung and breast cancer. SOCIAL HISTORY: Previous history of smoking. REVIEW OF SYSTEMS: A 14-point review of systems is negative except as mentioned earlier. PHYSICAL EXAMINATION: VITAL SIGNS: Pulse is 82, blood pressure 120/76, respirations 16. HEENT: Conjunctivae normal. NECK: No jugular venous distention. CARDIOVASCULAR: S1, S2. RESPIRATIONS: No rhonchi. No crackles. ABDOMEN: Soft, obese. LEGS: No edema. NERVOUS SYSTEM: No focal deficits. LABORATORY DATA: WBC 56.59. The previous white count few months ago was 9.9. ASSESSMENT: 1. Shortness of breath, for evaluation. 2. Multiple pulmonary nodules bilaterally. Rule out opportunistic infection. 3. Leukemoid reaction, predominantly glucose neutrophilic leukocytosis. 4. Anemia. 5. Lymphoma, on chemotherapy. 6. Diabetes type 2. 7. Hypertension. 8. History of pneumonia. 9. History of atrial fibrillation. RECOMMENDATIONS: This is a 44-year-old gentleman who presented with multiple complex medical issues. Recommend to continue current management and symptomatic treatment. Recommend 2D echo with Doppler to complete the workup. Otherwise, white count is also significantly elevated. I would also recommend infectious disease evaluation to rule the possibility of any secondary opportunistic infection also. Follow closely with Oncology. Guarded prognosis because of multiple complex medical. Further recommendations to follow. Home medications will be resumed once they are confirmed. I would recommend blood culture also. MMODL / IJN: [id number] /
[2025-01-30 03:04] LABS: Glucose,Whole Blood 101 mg/dL (70-110)
[2025-01-30 06:59] LABS: Glucose,Whole Blood 136 mg/dL (70-110)
[2025-01-30 07:29] LABS: HGB 12.1 g/dL (13.0-17.0); MCH 30.6 pg (27.0-32.0); MCHC 32.7 g/dL (32.0-37.0); MCV 93.4 fL (80.0-97.0); Mean Platelet Volume 9.2 fL (9.5-12.2); Platelet Count 306 10*3/uL (140-440); RBC 3.96 10*6/uL (4.40-5.60); RDW 15.6 % (11.5-14.5); WBC 41.21 10*3/uL (4.50-10.00)
[2025-01-30] MEDS: INSULIN LISPRO (HumaLOG) 100 UNIT/ML 10 mL VL SQ SCH (07:45)
[2025-01-30 08:17] LABS: ALT 23 U/L (10-49); AST 14 U/L (14-35); Albumin 3.9 g/dL (3.8-4.9); Albumin/Globulin Ratio 2.44 Ratio (1.60-3.17); Alkaline Phosphatase 103 U/L (41-126); BUN/Creat Ratio 25.67 Ratio (12.00-20.00); Blood Urea Nitrogen 23.1 mg/dL (9.0-27.0); Calcium 8.7 mg/dL (8.7-10.3); Carbon Dioxide 26.7 mmol/L (21.6-31.8); Chloride 105 mmol/L (96-109); Globulin 1.6 g/dL (1.6-3.3); Glucose 95 mg/dL (70-110); Potassium 3.6 mmol/L (3.5-5.5); Sodium 143 mmol/L (135-145); Total Bilirubin 0.3 mg/dL (0.3-1.2); Total Protein 5.5 g/dL (6.2-8.2)
[2025-01-30] MEDS ORDERED: ONDANSETRON ODT 4 MG TAB PO PRN (09:01)
[2025-01-30] MEDS ORDERED: HYDROcodone/APAP 5-325MG 1 EACH TAB PO PRN (09:06)
[2025-01-30] MEDS ORDERED: HYDROmorphone 0.5 MG/0.5 ML SYRINGE IVP PRN (09:07)
[2025-01-30] MEDS ORDERED: APREPITANT 80 MG PO SCH (09:15)
[2025-01-30] MEDS: CALCIUM CARB-VIT D 500 MG-5 MCG TAB PO SCH (09:47)
[2025-01-30] MEDS: DAPAGLIFLOZIN PROPANEDIOL 5 MG TABLET PO SCH (09:47)
[2025-01-30] MEDS: PANTOPRAZOLE 40 MG TABLET PO SCH (09:47)
[2025-01-30] MEDS: LACTOBACILLUS ACIDOPHILUS/PECT 1 EACH CAPSULE PO SCH (09:47)
[2025-01-30] MEDS: LORATADINE 10 MG TAB PO SCH (09:47)
[2025-01-30 11:20] VITALS: RESP 18
[2025-01-30 11:50] LABS: Glucose,Whole Blood 101 mg/dL (70-110)
[2025-01-30 12:11] VITALS: BP 143/79; PULSE 77; TEMP 98
[2025-01-30 12:22] LABS: Band Neutrophils % 2 %; Basophils # (M) 0.41 k/uL (0-0.2); Lymphocytes # (M) 2.06 k/uL (1.0-4.8); Monocytes # (M) 1.24 k/uL (0-1.0); Neutrophils # (M) 37.91 k/uL (1.3-7.7); Neutrophils % (M) 90 %; Nucleated Red Blood Cells 0 /100 WBC (0-0); Total Cells Counted 200
[2025-01-30 12:23] LABS: Anisocytosis (M) Present
--- NOTE | 2025-01-30 14:51 | P.CONS ---
History of Present Illness - Reason for Consult Consult date: 01/30/25 leukocytosis Requesting physician: Gabino Reece - Chief Complaint sudden onset SOB - History of Present Illness Mr. Santos is a 44-year-old male patient of Dr. Vasquez with a diagnosis of stage III, diffuse large B-cell lymphoma, currently on treatment. He initially pres ented to [facility] 09/19/2024. Reported swelling in the right side of the neck, started 2 to 3 months prior, progressively increased in size and was causing radiating pain into the right shoulder. There was no other associated symptoms or lymph node enlargements. CBC and CMP were unremarkable. CT neck with contrast showed heterogenous right posterior lateral neck mass 5.9 x 6.3 x 7.3 cm. There were additional lymph nodes including a level 2A/2B/junctional and level 4/5B nodes in the 2 to 3 cm range. The dominant node was centrally necrotic. He was referred to oncology. Patient denied any constitutional symptoms, he had no prior history of blood problems or cancers. CT-guided biopsy of the neck mass 09/26/2024 revealed high-grade large B-cell lymphoma. Burkitt's and double/triple hit lymphoma was ruled out. PET scan revealed uptake in conglomerate lymph nodes in the right neck, supraclavicular area as well as the left adrenal. Patient was staged at stage III disease. He was started on R-CHOP 11/04/2024, he is status post 5 of 6 planned cycles. Patient had bacteremia after cycle 1 secondary to the port. Imaging after cycle 2 showed a complete FDG response. Patient states that overall he has done very well with treatment Pt contacted the office and was reporting sudden onset SOB with activity yesterday. He was instructed to come to ER to be evaluated for possible PE/cardiac event. Spoke with Dr. Reece, CTA neg for PE, EKG SR. WBC was noted to be significantly elevated at 56, pt has never had a WBC this high during treatment or with GCSF. He was admitted for 6 observation and a few other labs. On patient seen today he is ambulating with significantly less shortness of breath. He denies any cough, expectoration, fevers or wheezing. His white coun t came down from 56-41. Patient thinks that he may have become overheated as it was very humid at his place of work yesterday. Patient does have respiratory symptoms when air quality is poor or when it is very humid. Review of Systems 10 point ROS is neg except as stated in HPI Past Medical History Past Medical History: Cancer, Diabetes Mellitus, Hypertension, Pneumonia Additional Past Medical History / Comment(s): Lymphoma diagnosed Sep 2024- Elevated WBC and SOB following chemo(01/27/25) and immunotherapy(01/28/25) infusions. hx bronchitis, hx pneumonia back in high school, hx kidney stones. History of Any Multi-Drug Resistant Organisms: None Reported Past Surgical History: No Surgical Hx Reported Additional Past Surgical History / Comment(s): Right chest [id number]-[id number] placement and removal r/t infection. PICC line left arm(removed). Currently patient does have a left chest infusaport. Past Anesthesia/Blood Transfusion Reactions: No Reported Reaction Additional Past Anesthesia/Blood Transfusion Reaction / Comm: no surgical hx Past Psychological History: No Psychological Hx Reported Smoking Status: Former smoker Past Alcohol Use History: None Reported Additional Past Alcohol Use History / Comment(s): Smoked in high school for a couple of years Quit 1998. Past Drug Use History: None Reported Additional Drug Use History / Comment(s): 1-2 drinks yearly. - Past Family History Mother Family Medical History: Cancer Additional Family Medical History / Comment(s): Lung cancer. Maternal uncle lung cancer. Maternal aunt breast cancer. Maternal grandfather leukemia. Father Additional Family Medical History / Comment(s): Paternal uncle pancreatic cancer. Medications and Allergies Home Medications Medication Instructions Recorded Confirmed Type Aprepitant [Emend] 80 mg PO DIRECTED 11/09/24 01/29/25 History Empagliflozin [Jardiance] 10 mg PO DAILY 11/09/24 01/29/25 History Loratadine [Claritin] 10 mg PO DAILY 11/09/24 01/29/25 History OLANZapine [ZyPREXA] 2.5 mg PO DIRECTED 11/09/24 01/29/25 History Omeprazole [PriLOSEC] 20 mg PO DAILY 11/09/24 01/29/25 History Ondansetron [Zofran] 4 - 8 mg PO Q4H PRN MDD 32mg 11/09/24 01/29/25 History predniSONE [Deltasone] 100 mg PO DIRECTED 11/09/24 01/29/25 History Calcium/Vitamin D3/K2 1 tab PO DAILY 01/29/25 01/29/25 History L.acidoph,Paracasei, B.lactis 1 cap PO DAILY 01/29/25 01/29/25 History [Probiotic] dilTIAZem HCL [Cardizem LA] 180 mg PO HS 01/29/25 01/29/25 History Allergies Allergy/AdvReac Type Severity Reaction Status Date / Time adhesive tape AdvReac Rash/Hives Verified 01/29/25 17:32 Physical Exam Vitals: Vital Signs Temp Pulse Pulse Resp BP BP BP 01/30/25 06:56 97.5 F L 70 18 122/77 01/30/25 01:15 98.3 F 79 16 111/68 01/29/25 22:14 81 138/81 01/29/25 18:33 97.5 F L 85 18 135/82 01/29/25 15:55 76 17 142/74 01/29/25 12:09 97.9 F 82 16 122/76 Pulse Ox 01/30/25 06:56 93 L 01/30/25 01:15 95 01/29/25 22:14 01/29/25 18:33 94 L 01/29/25 15:55 98 01/29/25 12:09 95 Intake and Output 01/29/25 01/30/25 01/30/25 22:59 06:59 14:59 Intake Total 590 Balance 590 Intake: Oral 590 Other: # Voids 2 Weight 161.479 kg - Constitutional General appearance: cooperative, no acute distress, obese - EENT Eyes: anicteric sclerae, EOMI ENT: hearing grossly normal, normal oropharynx - Neck Neck: no lymphadenopathy - Respiratory Respiratory: bilateral: CTA - Cardiovascular Rhythm: regular Heart sounds: normal: S1, S2 Abnormal Heart Sounds: no systolic murmur, no diastolic murmur, no rub, no S3 Gallop, no S4 Gallop, no click, no other leg Peripheral Edema: bilateral: None - Gastrointestinal General gastrointestinal: no absent bowel sounds, no decreased bowel sounds, no distended, no hepatomegaly, no hyperactive bowel sounds, normal bowel sounds, no organomegaly, no rigid, no scaphoid, soft, no splenomegaly, no tenderness, no umbilical hernia, no ventral hernia - Integumentary Integumentary: normal - Neurologic Neurologic: CNII-XII intact - Musculoskeletal Musculoskeletal: strength equal bilaterally - Psychiatric Psychiatric: A&O x's 3, appropriate affect, intact judgment & insight Results CBC & Chem 7: 01/30/25 04:14 01/30/25 04:14 Labs: Abnormal Lab Results - Last 24 Hours (Table) 01/29/25 01/29/25 01/29/25 Range/Units 12:15 12:15 12:15 WBC 56.59 H* (4.50-10.00) 10*3/uL RBC 4.18 L (4.40-5.60) 10*6/uL Hgb 12.7 L (13.0-17.0) g/dL Hct 37.5 L (39.6-50.0) % RDW (11.5-14.5) % MPV 8.8 L (9.5-12.2) fL Immature Gran # 4.12 H (0.00-0.04) 10*3/uL Neutrophils # (Manual) 54.32 H (1.3-7.7) k/uL Monocytes # (Manual) 1.13 H (0-1.0) k/uL APTT 21.9 L (22.0-30.0) sec D-Dimer 0.74 H (<0.60) mg/L FEU BUN 22 H (9-20) mg/dL BUN/Creatinine Ratio (12.00-20.00) Ratio Glucose 211 H (74-99) mg/dL POC Glucose (mg/dL) (70-110) mg/dL Total Protein (6.2-8.2) g/dL 01/30/25 01/30/25 01/30/25 Range/Units 04:14 04:14 06:59 WBC 41.21 H (4.50-10.00) 10*3/uL RBC 3.96 L (4.40-5.60) 10*6/uL Hgb 12.1 L (13.0-17.0) g/dL Hct 37.0 L (39.6-50.0) % RDW 15.6 H (11.5-14.5) % MPV 9.2 L (9.5-12.2) fL Immature Gran # 5.61 H (0.00-0.04) 10*3/uL Neutrophils # (Manual) (1.3-7.7) k/uL Monocytes # (Manual) (0-1.0) k/uL APTT (22.0-30.0) sec D-Dimer (<0.60) mg/L FEU BUN (9-20) mg/dL BUN/Creatinine Ratio 25.67 H (12.00-20.00) Ratio Glucose (74-99) mg/dL POC Glucose (mg/dL) 136 H (70-110) mg/dL Total Protein 5.5 L (6.2-8.2) g/dL Chest x-ray: report reviewed CT scan - chest: report reviewed Assessment and Plan (1) Dyspnea Status: Acute Priority: Medium Code(s): R06.00 - DYSPNEA, UNSPECIFIED SNOMED Code(s): 060911348 (2) Leukocytosis Status: Acute Priority: High Code(s): D72.829 - ELEVATED WHITE BLOOD CELL COUNT, UNSPECIFIED SNOMED Code(s): 472848296 (3) History of lymphoma Status: Acute Priority: High Code(s): Z85.72 - PERSONAL HISTORY OF NON- HODGKIN LYMPHOMAS SNOMED Code(s): 082497500 Plan: Shortness of breath on exertion - Presenting symptoms as stated in HPI. - With no specific intervention, patient's symptoms have improved. He thinks so me of his respiratory symptoms may have been related to humidity and poor air quality. - Chest x-ray negative, CTA negative for PE or any other pathological findings. Leukocytosis - Significant leukocytosis day after receiving G-CSF. The significant increase in count that soon after injection likely related to patient's age and responsiveness of his marrow to G-CSF, also, he was on 100mg pred for 5 days as part of treatment regimen. WBC is come down substantially in just 1 day-56 down to 41. -Patient has not had any fevers since admission, he denies any prior to admission. Patient and his are very diligent about monitoring patient's temperature. - Do not suspect infection, suspect this is related to growth factor, pred and responsive bone marrow Lymphoma, diffuse large B cell, stage III - Diagnosis and treatment as reported in HPI - Patient did receive his treatment last week and received G-CSF on the 10th - Patient has done overall really well with treatment, with significant improvement in disease. Patient has an appointment for imaging on Monday, will have the patient stop by the office for a CBC just to make sure his white count is improving. Patient was also instructed to continue to monitor her temperature, which he and his have been doing very diligently. He will return to the hospital if any new or progressive symptoms. Discussed the case briefly with Internal Medicine [employer]. From a Hematology/Oncology standpoint patient can be discharged. Doctor attests: I performed a history and physical examination of this patient, developed impression and plan of care. Discussed with dictator. I agree with dictators note, documented as a scribe.
--- NOTE | 2025-02-01 16:47 | P.DS ---
Providers Date of admission: 01/29/25 15:53 Expected date of discharge: 01/30/25 Attending physician: Jerome Bauer Consults: 01/29/25 15:53 Consult Physician Urgent Consulting Provider: Richard Silva Consult Reason/Comments: Leukocytosis, history of lymphoma, dyspnea Do you want consulting provider notified?: Already Contacted Primary care physician: Racheal King, DO Hospital Course: Final diagnosis Shortness of breath, possibly secondary to multiple pulmonary nodules noted bilaterally, difficult to exclude opportunistic infection Leukemoid reaction, predominantly glucose neutrophilic leukocytosis maintained on high-dose steroids Anemia Lymphoma, on chemotherapy Diabetes mellitus, type II, uncontrolled with hyperglycemia Hypertension History of pneumonia History of atrial fibrillation Morbid obesity with a BMI of 40.3 GI prophylaxis Noncompliance with outpatient follow-up DVT prophylaxis Full code Discharge disposition Patient is being discharged in a stable condition with guarded prognosis to home. Patient will follow-up with Dr. Racheal King in the outpatient setting upon discharge. Patient is to continue with continued steroid regimen and outpatient follow-up with oncology as scheduled. Total time taken is greater than 35 minutes. Hospital course This is a 44-year-old male who was recently admitted with increasing shortness of breath with elevated white count with concerns of possible underlying infection and is a cancer patient maintained on chemotherapy with concerns of significantly elevated white count. Patient is maintained on steroids per oncology which is felt a possible leukemoid reaction. Attempted to initiate on antibiotics and patient was not agreeable and wanted to go home. Oncology did evaluate the patient recommending outpatient follow-up. Infectious disease was initially consulted although patient reported had a negative experience in the office with poor compliance to follow-up and noncompliance to medications. Pl ease refer to consultation notes for further HPI as patient will be discharged home today per oncology. Currently no reports of chest pain, no reports of shortness of breath, or palpitations. Patient is afebrile. No reports of nausea or vomiting and patient is tolerating diet. Patient will be discharged home. Extremely guarded prognosis and high risk for readmissions given ongoing comorbidities. Physical exam: Gen: This is a 44-year-old male who is awake, alert and oriented x 3, well- developed, morbidly obese HEENT: Head is atraumatic, normocephalic. Pupils equal, round. Sclerae is anic teric. NECK: Supple. No JVD. No lymphadenopathy. No thyromegaly. LUNGS: Diminished breath sounds bilaterally otherwise clear to auscultation. No wheezes or rhonchi. No intercostal retractions. HEART: S1, S2 are muffled ABDOMEN: Soft. Morbidly obese. Bowel sounds are present. No masses. No tenderness. EXTREMITIES: No pedal edema. No calf tenderness. NEUROLOGICAL: Patient is awake, alert and oriented x3. Cranial nerves 2 through 12 are grossly intact. Please refer to medication reconciliation sheet for a list of medications. The impression and plan of care has been dictated by Charlene Cardenas, Nurse Practitioner as directed. Dr. Juancarlos MD I have performed a history and examination and MDM of this patient, discussed the same with the dictator, and agree with the dictator's assessment and plan as written ,documented as a scribe. Based on total visit time, I have performed more than 50% of the visit. Plan - Discharge Summary Discharge Rx Participant: No New Discharge Prescriptions: Continue predniSONE [Deltasone] 100 mg PO DIRECTED Aprepitant [Emend] 80 mg PO DIRECTED L.acidoph,Paracasei, B.lactis [Probiotic] 1 cap PO DAILY dilTIAZem HCL [Cardizem LA] 180 mg PO HS Loratadine [Claritin] 10 mg PO DAILY Omeprazole [PriLOSEC] 20 mg PO DAILY OLANZapine [ZyPREXA] 2.5 mg PO DIRECTED Ondansetron [Zofran] 4 - 8 mg PO Q4H PRN MDD 32mg PRN Reason: Nausea Empagliflozin [Jardiance] 10 mg PO DAILY Calcium/Vitamin D3/K2 1 tab PO DAILY Discharge Medication List Aprepitant [Emend] 80 mg PO DIRECTED 11/09/24 [History] Empagliflozin [Jardiance] 10 mg PO DAILY 11/09/24 [History] Loratadine [Claritin] 10 mg PO DAILY 11/09/24 [History] OLANZapine [ZyPREXA] 2.5 mg PO DIRECTED 11/09/24 [History] Omeprazole [PriLOSEC] 20 mg PO DAILY 11/09/24 [History] Ondansetron [Zofran] 4 - 8 mg PO Q4H PRN MDD 32mg 11/09/24 [History] predniSONE [Deltasone] 100 mg PO DIRECTED 11/09/24 [History] Calcium/Vitamin D3/K2 1 tab PO DAILY 01/29/25 [History] L.acidoph,Paracasei, B.lactis [Probiotic] 1 cap PO DAILY 01/29/25 [History] dilTIAZem HCL [Cardizem LA] 180 mg PO HS 01/29/25 [History] Follow up Appointment(s)/Referral(s): Dax Bernal [STAFF PHYSICIAN] - 02/07/25 8:30 am Racheal King DO [Primary Care Provider] - 02/10/25 5:00 pm Patient Instructions/Handouts: Leukocytosis (DC), Dyspnea (DC) Activity/Diet/Wound Care/Special Instructions: CT scan Monday02/03/25 as previously scheduled. Repeat CBC on Monday Discharge Disposition: HOME SELF-CARE
== END 2025-01-30 12:36 | disposition home or self-care (01) ==
LOC: EC 11:57 → 5NMEDONC 15:53
PROVIDERS: ADMIT Hospitalist; ATTEND Hospitalist
DX: R06.02 Shortness of breath (principal); R91.8 Other nonspecific abnormal finding of lung field; C83.30 Diffuse large B-cell lymphoma, unspecified site; D64.9 Anemia, unspecified; D72.823 Leukemoid reaction; D72.828 Other elevated white blood cell count; E11.65 Type 2 diabetes mellitus with hyperglycemia; E66.01 Morbid (severe) obesity due to excess calories; I10 Essential (primary) hypertension; I48.91 Unspecified atrial fibrillation; K76.0 Fatty (change of) liver, not elsewhere classified; Z68.41 Body mass index [BMI] 40.0-44.9, adult; Z79.52 Long term (current) use of systemic steroids; Z79.84 Long term (current) use of oral hypoglycemic drugs; Z87.01 Personal history of pneumonia (recurrent); Z87.442 Personal history of urinary calculi; Z87.891 Personal history of nicotine dependence; Z91.199 Patient's noncompliance with other medical treatment and regimen due to unspecified reason; Z79.899 Other long term (current) drug therapy
CPT/HCPCS: 96361 ×3; 96360; 99285; 36415; 93005; 85379; 80053 ×2; 85652; 84484; 85025 ×2; 85610; 85730; 86140; 87040; 71046; 71275; G0378 ×2; Q9967

== ENCOUNTER → 2025-02-03 | Outpatient (CLI) | payer BC ==
[2025-02-03 15:27] LABS: African American GFR (CKD) >90 (>60 ml/min/1.73 sqM); Blood Urea Nitrogen 17 mg/dL (9-20); Non-African American GFR(CKD) >90 (>60 ml/min/1.73 sqM)
--- NOTE | 2025-02-03 18:16 | CT ---
EXAMINATION TYPE: CT ChestAbdPelvis w con DATE OF EXAM: 02/03/2025 5:38 PM COMPARISON: CT study 01/29/2025. CLINICAL INDICATION: Male, 44 years old with history of C85.11 UNSP B-CELL LYMPHOMA, LYMPH NODES OF H EAD,; PHH, HX OF B CELL LYMPHOMA, F/U ON TREATMENT PROGRESSION Technique: CT ChestAbdPelvis w con; Multiple axial images were obtained. Two-dimensional coronal and sagittal reconstructions were obtained. Contrast used:100 ml mL of Isovue 300 with IV Contrast, (None if empty) Oral contrast used: with Oral Contrast CT DLP: 3984.20 mGycm, Automated exposure control for dose reduction was used. Findings: CHEST: LUNGS/ PLEURA: No focal consolidation, pneumothorax or pleural effusion. Stable subcentimeter pulmona ry nodules, not significant change from recent study 01/29/2025. No new suspicious or enlarging pulmon merna nodule. AIRWAY: Patent and unremarkable. HEART: Size within normal limits. MEDIASTINUM: No gross evidence of adenopathy. VASCULATURE: No aortic aneurysm. Likely a left chest wall port catheter with distal catheter tip ter minating in stable position in the proximal SVC. MUSCULOSKELETAL: No acute osseous abnormalities. SOFT TISSUES/LYMPH NODES: Unremarkable. LOWER NECK: No significant findings. ABDOMEN: ABDOMEN LIVER: Diffusely hypoattenuating parenchyma. GALLBLADDER AND BILE DUCTS: Unremarkable. PANCREAS: Unremarkable. SPLEEN: Unremarkable. ADRENAL GLANDS: Unremarkable. KIDNEYS AND URETERS: No evidence of hydronephrosis or renal calculus. The ureters are unremarkable. PELVIS BLADDER: Unremarkable REPRODUCTIVE: Unremarkable. ABDOMEN & PELVIS STOMACH AND BOWEL: Stomach and duodenum are unremarkable. No evidence of bowel obstruction. PERITONEUM/RETROPERITONEUM: No evidence of pneumoperitoneum or free fluid. VASCULATURE: No evidence of aortic aneurysm. MUSCULOSKELETAL: No acute osseous abnormalities LYMPH NODES: No gross evidence for lymphadenopathy. SOFT TISSUE/ABDOMINAL WALL: Unremarkable IMPRESSION: No pathologic lymphadenopathy or evidence of active lymphoma in the chest/abdomen/pelvis. [facility], , 02/03/2025 6:13 PM
== END | disposition home or self-care (01) ==
LOC: RADCTMAIN 14:43
PROVIDERS: ATTEND Internal Medicine Hematology & Oncology
DX: Z03.89 Encounter for observation for other suspected diseases and conditions ruled out (principal); C85.11 Unspecified B-cell lymphoma, lymph nodes of head, face, and neck; R91.8 Other nonspecific abnormal finding of lung field
CPT/HCPCS: 82565; 84520; 71260; 74177; 36415; Q9967